=== PATIENT | female | born 1935 | race Caucasian/White ===

== ENCOUNTER 2016-09-16 12:18 | Emergency (ER) | payer MEDICARE, BC ==
[2016-09-16 12:37] VITALS: BP 132/80; PULSE 98; RESP 16; TEMP 98.2
--- NOTE | 2016-09-16 12:57 | XR ---
EXAMINATION TYPE: XR hand complete RT DATE OF EXAM: 09/16/2016 12:53 PM CLINICAL HISTORY: pain TECHNIQUE: Frontal, lateral and oblique images of the right hand are obtained. COMPARISON: None. FINDINGS: Mildly displaced fracture at the base of the fifth proximal phalanx with displacement of mm . Mild angulation is seen. No additional fractures noted. The joint spaces appear within normal limit s. The overlying soft tissue appears unremarkable. IMPRESSION: Mildly displaced fracture at the base of the fifth proximal phalanx ICD 10 closed FRACTURE, INITIAL EVALUATION
--- NOTE | 2016-09-16 13:29 | ED ---
Upper Extremity HPI - General Chief Complaint: Extremity Injury, Upper Stated Complaint: Fall-finger swollen Time Seen by Provider: 09/16/16 13:09 Source: patient, RN notes reviewed Mode of arrival: ambulatory Limitations: no limitations - History of Present Illness Initial Comments: Patient is an 81-year-old female presents to the emergency room for evaluation of right pinky finger pain. Patient states yesterday she fell backwards and caught herself with her hand. Patient states her right pinky finger was "bending the wrong way". Patient states she had her straighten her finger back in place. Patient states when she woke up this morning her finger appeared to be bending the wrong way again. Patient states earlier today she tried to tape her fifth and fourth fingers together with bandaids. Patient states her finger is more swollen and painful than this morning. Patient states she is unable to flex or extend her finger because of pain. Patient denies any other injuries during incident. Patient denies any numbness or tingling in her finger. - Related Data Allergies Allergy/AdvReac Type Severity Reaction Status Date / Time No Known Allergies Allergy Verified 09/16/16 12:34 Review of Systems ROS Statement: Those systems with pertinent positive or pertinent negative responses have been documented in the HPI. ROS Other: All systems not noted in ROS Statement are negative. Past Medical History Past Medical History: Diabetes Mellitus, Thyroid Disorder History of Any Multi-Drug Resistant Organisms: None Reported Past Surgical History: No Surgical Hx Reported Past Psychological History: No Psychological Hx Reported Smoking Status: Never smoker Past Alcohol Use History: None Reported Past Drug Use History: None Reported General Exam - General Exam Comments Initial Comments: Sitting in exam room, no acute distress. Limitations: no limitations General appearance: alert, in no apparent distress Head exam: Present: atraumatic, normocephalic, normal inspection ENT exam: Present: normal exam Neck exam: Present: normal inspection Respiratory exam: Absent: respiratory distress Right Hand Wrist exam: Present: tenderness (Pain on palpating over the fifth digit), swelling (Swelling of the fifth digit.), deformity (Slight angulation of the proximal phalanx of the fifth digit. Pain on palpating over the proximal phalanx.) Neuro motor exam: Present: wrist extension intact Vascular: Present: normal capillary refill (Capillary refill less than 2 seconds.), radial pulse (2+), ulnar pulse (2+) Back exam: Present: normal inspection Neurological exam: Present: alert, oriented X3, CN II-XII intact, normal gait Psychiatric exam: Present: normal affect, normal mood Skin exam: Present: warm, dry, intact, normal color. Absent: rash Course Vital Signs 09/16/16 12:34 Temperature 98.2 F Pulse Rate 98 Respiratory 16 Rate Blood Pressure 132/80 O2 Sat by Pulse 96 Oximetry Procedures - Nerve Block Consent Obtained: verbal consent Local Anesthetic Used: Lidocaine 1% Amount of anesthesia used: 6 Nerve Blocks: digital (right fifth finger) Procedure Successful: Yes Complications: none Patient Tolerated Procedure: well, no complications Medical Decision Making - Medical Decision Making Patient is a 81-year-old female presents to the emergency room for evaluation of right fifth finger pain and swelling. Patient noted to have a mildly displaced fracture of the proximal phalanx to the fifth digit. Fracture was reduced and placed in a splint and starr taped to fourth digit. Patient advised to follow-up with hand specialist for further evaluation. Patient states she understands everything that was discussed with her. Return parameters discussed. Case discussed with Dr. La. - Radiology Data Radiology results: report reviewed, image reviewed Disposition Clinical Impression: Finger fracture, right Disposition: HOME SELF-CARE Condition: Good Instructions: Finger Fracture (ED) Additional Instructions: Elevate and ice on and off for 10-15 minutes for the next 24-48 hours. Take Tylenol or Motrin as needed for pain. Please follow-up with ear specialist in 24-48 hours for reevaluation. If new symptoms develop or symptoms worsen, please return to the ER. Referrals: Yohana Wallace MD [Primary Care Provider] - 1-2 days Nikita Bridges DO [Doctor of Osteopathic Medicine] - 1-2 days Time of Disposition: 13:45
== END 2016-09-16 14:15 | disposition home or self-care (01) ==
LOC: EC 12:18
DX: S62.616A Displaced fracture of proximal phalanx of right little finger, initial encounter for closed fracture (principal); W18.09XA Striking against other object with subsequent fall, initial encounter
CPT/HCPCS: 26725; 99283

== ENCOUNTER → 2017-04-05 | Outpatient (CLI) | payer MEDICARE, BC ==
--- NOTE | 2017-04-13 10:59 | P.ARTDOP ---
Arterial Doppler LOWER EXTREMITY ARTERIAL DOPPLER: DATE OF SERVICE: 04/05/2017 Reason for study: Suspected PVD. Doppler waveforms: Multiphasic bilaterally throughout. Pulse volume recording: Normal configuration. Pressure gradients: None. Ankle-brachial indices: Greater than 1 bilaterally. Toe pressures: 66 on the right, 75 on the left Impression: Essentially normal study. Low toe pressures related to vasospastic phenomenon or less likely very distal disease with proximal flow all being normal. Clinical correlation recommended..
== END | disposition home or self-care (01) ==
LOC: RADUSWWP 13:53
PROVIDERS: ATTEND Internal Medicine
DX: I73.9 Peripheral vascular disease, unspecified (principal)
CPT/HCPCS: 93923

== ENCOUNTER 2017-12-25 13:37 | Inpatient (IN) | payer MEDICARE, BC ==
[2017-12-25] MEDS ORDERED: SODIUM CHLORIDE 0.9% 500 ML IV STA (13:51)
--- NOTE | 2017-12-25 13:57 | ED ---
General Adult HPI - General Chief complaint: Neuro Symptoms/Deficit Stated complaint: stroke symptoms Time Seen by Provider: 12/25/17 13:40 Source: patient, family, RN notes reviewed Mode of arrival: wheelchair Limitations: no limitations - History of Present Illness Initial comments: This is an 82-year-old female presents emergency Department complaining of slurred speech and a little left-sided facial droop. Patient states she went to take it at about 9:00 this morning previous to which she was feeling normal. Patient states when she woke from a nap she had slurred speech and left-sided facial droop that she didn't really appreciate at the time. Family noticed slurred speech as well and brought her to the emergency department. Patient denies any numbness or weakness patient denies any visual disturbance patient denies headache patient states she has had similar symptoms in the past but shows that her sugar was just low and they always resolved. Patient denies any chest pain palpitations difficulty breathing or shortness of breath per patient denies any abdominal pain patient denies nausea vomiting diarrhea. Patient denies any recent injury or fall. - Related Data Allergies Allergy/AdvReac Type Severity Reaction Status Date / Time No Known Allergies Allergy Verified 12/25/17 13:43 Review of Systems ROS Statement: Those systems with pertinent positive or pertinent negative responses have been documented in the HPI. ROS Other: All systems not noted in ROS Statement are negative. Past Medical History Past Medical History: Diabetes Mellitus, Thyroid Disorder History of Any Multi-Drug Resistant Organisms: None Reported Past Surgical History: No Surgical Hx Reported Past Psychological History: No Psychological Hx Reported Smoking Status: Never smoker Past Alcohol Use History: None Reported Past Drug Use History: None Reported General Exam - General Exam Comments Initial Comments: GENERAL: Patient is well-developed and well-nourished. Patient is nontoxic and well- hydrated and is in mild distress. ENT: Neck is soft and supple. No significant lymphadenopathy is noted. Oropharynx is clear. Moist mucous membranes. Neck has full range of motion without eliciting any pain. EYES: The sclera were anicteric and conjunctiva were pink and moist. Extraocular movements were intact and pupils were equal round and reactive to light. Eyelids were unremarkable. PULMONARY: Unlabored respirations. Good breath sounds bilaterally. No audible rales rhonchi or wheezing was noted. CARDIOVASCULAR: There is a regular rate and rhythm without any murmurs gallops or rubs. ABDOMEN: Soft and nontender with normal bowel sounds. No palpable organomegaly was noted. There is no palpable pulsatile mass. SKIN: Skin is clear with no lesions or rashes and otherwise unremarkable. NEUROLOGIC: Patient is alert and oriented x3. Patient has slight facial droop on the left. Motor and sensory are also intact. Patient's slurred speech. Symmetrical smile. Cerebellar exam grossly intact. MUSCULOSKELETAL: Normal extremities with adequate strength and full range of motion. No lower extremity swelling or edema. No calf tenderness. LYMPHATICS: No significant lymphadenopathy is noted PSYCHIATRIC: Normal psychiatric evaluation. Normal interpersonal interactions appears functionally intact in deals appropriately with others. No signs of depression. No signs of anxiety. Limitations: no limitations Course Vital Signs 12/25/17 13:39 Temperature 98.2 F Pulse Rate 77 Respiratory 16 Rate Blood Pressure 165/79 O2 Sat by Pulse 97 Oximetry Medical Decision Making - Medical Decision Making EKG shows sinus rhythm at 100 bpm [place] interval 212 QRS is 86 QT interval 358 QTC is 461. Patient's EKG shows no ST segment elevation or T wave abnormalities. Patient's computed tomography scan showed a right frontal parietal wedge-shaped infarct. Patient's symptoms continued. I spoke with Dr. Kang he agreed to admit the patient admitted the patient I consult the neurology. - Lab Data Result diagrams: 12/25/17 13:58 12/25/17 13:58 Lab Results 12/25/17 12/25/17 12/25/17 Range/Units 13:56 13:58 13:58 WBC 9.3 (3.8-10.6) k/uL RBC 5.06 (3.80-5.40) m/uL Hgb 15.0 (11.4-16.0) gm/dL Hct 44.0 (34.0-46.0) % MCV 86.9 (80.0-100.0) fL MCH 29.5 (25.0-35.0) pg MCHC 34.0 (31.0-37.0) g/dL RDW 12.9 (11.5-15.5) % Plt Count 235 (150-450) k/uL Neutrophils % 78 % Lymphocytes % 10 % Monocytes % 5 % Eosinophils % 4 % Basophils % 1 % Neutrophils # 7.2 (1.3-7.7) k/uL Lymphocytes # 1.0 (1.0-4.8) k/uL Monocytes # 0.5 (0-1.0) k/uL Eosinophils # 0.4 (0-0.7) k/uL Basophils # 0.1 (0-0.2) k/uL PT (9.0-12.0) sec INR (<1.2) APTT (22.0-30.0) sec Sodium (137-145) mmol/L Potassium (3.5-5.1) mmol/L Chloride (98-107) mmol/L Carbon Dioxide (22-30) mmol/L Anion Gap mmol/L BUN (7-17) mg/dL Creatinine (0.52-1.04) mg/dL Est GFR (CKD-EPI)AfAm (>60 ml/min/1.73 sqM) Est GFR (CKD-EPI)NonAf (>60 ml/min/1.73 sqM) Glucose (74-99) mg/dL POC Glucose (mg/dL) 183 H (75-99) mg/dL POC Glu Slater Apprentice [place] Geraldo Robel Calcium (8.4-10.2) mg/dL Total Bilirubin (0.2-1.3) mg/dL AST (14-36) U/L ALT (9-52) U/L Alkaline Phosphatase (38-126) U/L Total Creatine Kinase 71 (30-135) U/L CK-MB (CK-2) 1.2 (0.0-2.4) ng/mL CK-MB (CK-2) Rel Index 1.7 Troponin I <0.012 (0.000-0.034) ng/mL Total Protein (6.3-8.2) g/dL Albumin (3.5-5.0) g/dL 12/25/17 12/25/17 Range/Units 13:58 13:58 WBC (3.8-10.6) k/uL RBC (3.80-5.40) m/uL Hgb (11.4-16.0) gm/dL Hct (34.0-46.0) % MCV (80.0-100.0) fL MCH (25.0-35.0) pg MCHC (31.0-37.0) g/dL RDW (11.5-15.5) % Plt Count (150-450) k/uL Neutrophils % % Lymphocytes % % Monocytes % % Eosinophils % % Basophils % % Neutrophils # (1.3-7.7) k/uL Lymphocytes # (1.0-4.8) k/uL Monocytes # (0-1.0) k/uL Eosinophils # (0-0.7) k/uL Basophils # (0-0.2) k/uL PT 10.1 (9.0-12.0) sec INR 1.0 (<1.2) APTT 20.8 L (22.0-30.0) sec Sodium 139 (137-145) mmol/L Potassium 3.9 (3.5-5.1) mmol/L Chloride 100 (98-107) mmol/L Carbon Dioxide 29 (22-30) mmol/L Anion Gap 10 mmol/L BUN 28 H (7-17) mg/dL Creatinine 0.80 (0.52-1.04) mg/dL Est GFR (CKD-EPI)AfAm 80 (>60 ml/min/1.73 sqM) Est GFR (CKD-EPI)NonAf 70 (>60 ml/min/1.73 sqM) Glucose 189 H (74-99) mg/dL POC Glucose (mg/dL) (75-99) mg/dL POC Glu Slater Apprentice ID Calcium 10.0 (8.4-10.2) mg/dL Total Bilirubin 0.8 (0.2-1.3) mg/dL AST 25 (14-36) U/L ALT 30 (9-52) U/L Alkaline Phosphatase 79 (38-126) U/L Total Creatine Kinase (30-135) U/L CK-MB (CK-2) (0.0-2.4) ng/mL CK-MB (CK-2) Rel Index Troponin I (0.000-0.034) ng/mL Total Protein 7.4 (6.3-8.2) g/dL Albumin 4.1 (3.5-5.0) g/dL Disposition Clinical Impression: Cerebrovascular accident Disposition: ADMITTED IP TO THIS [facility] Referrals: Yohana Wallace MD [Primary Care Provider] - 1-2 days Time of Disposition: 14:53
[2017-12-25 13:59] LABS: Glucose,Whole Blood 183 mg/dL (75-99)
[2017-12-25 14:08] LABS: Basophils # (A) 0.1 k/uL (0-0.2); Basophils % (A) 1 %; Eosinophils # (A) 0.4 k/uL (0-0.7); Eosinophils % (A) 4 %; Lymphocytes % (A) 10 %; MCH 29.5 pg (25.0-35.0); MCV 86.9 fL (80.0-100.0); Mean Platelet Volume 7.1; Monocytes # (A) 0.5 k/uL (0-1.0); Monocytes % (A) 5 %; Neutrophils # (A) 7.2 k/uL (1.3-7.7); Neutrophils % (A) 78 %; Platelet Count 235 k/uL (150-450); RBC 5.06 m/uL (3.80-5.40); RDW 12.9 % (11.5-15.5); WBC 9.3 k/uL (3.8-10.6)
[2017-12-25 14:24] LABS: Albumin 4.1 g/dL (3.5-5.0); Potassium 3.9 mmol/L (3.5-5.1); Total Bilirubin 0.8 mg/dL (0.2-1.3); Total Protein 7.4 g/dL (6.3-8.2)
[2017-12-25 14:26] LABS: Prothrombin Time 10.1 sec (9.0-12.0)
[2017-12-25 14:28] LABS: Creatine Kinase 71 U/L (30-135)
--- NOTE | 2017-12-25 14:28 | XR ---
EXAMINATION TYPE: XR chest 2V DATE OF EXAM: 12/25/2017 COMPARISON: 12/25/2017 HISTORY: Altered mental status TECHNIQUE: Frontal and lateral views of the chest are obtained. FINDINGS: There is no focal air space opacity, pleural effusion, or pneumothorax seen. Pulmonary hy perinflation and biapical lucency represent underlying COPD. The cardiac silhouette size is within no rmal limits. Mild generalized osseous demineralization. The osseous structures are intact. There is an intrathoracic stomach in the retrocardiac airspace. IMPRESSION: No acute cardiopulmonary process.
[2017-12-25 14:39] LABS: Partial Thromboplastin Time 20.8 sec (22.0-30.0)
[2017-12-25 14:40] LABS: Creatine Kinase MB 1.2 ng/mL (0.0-2.4); Troponin I <0.012 ng/mL (0.000-0.034)
--- NOTE | 2017-12-25 14:45 | CT ---
EXAMINATION TYPE: CT angio head neck, CT brain wo con for TPA DATE OF EXAM: 12/25/2017 HISTORY: slurred speech (accession [id number]), Slurred speech (accession [id number]) COMPARISON: NONE CT DLP: 252.8 (accession [id number]), 945.5 (accession [id number]) mGycm. Automated Exposure Control for Dose Reduction was Utilized. TECHNIQUE: Unenhanced CT brain was performed. CTA scan of the neck is performed with IV Contrast, pa tient injected with 65 mL of Isovue 370, axial images are obtained, coronal and sagittal reformatted images are reviewed. Three-D reconstructed images are created on an independent workstation and revie wed. FINDINGS: Brain: There is wedge-shaped defect within the distribution of the right middle cerebral artery invol ving the right frontal and parietal lobes, however areas of this defect display very decreased attenu ation approaching CSF and may be subacute. Remainder of the baird-white junction is preserved. There i s ventricular and sulcal prominence compatible with age-related volume loss. No evidence of acute int racranial hemorrhage, midline shift or mass effect is seen. Ocular lenses are surgically absent. Ther e is atherosclerosis of the intracranial vasculature. Calvarium is intact. Paranasal sinuses and mast oid air cells are well aerated. Carotid/Vascular Structures: There is a normal variant direct origin of the left vertebral artery fro m the aortic arch. There is approximately 50% short segment stenosis of the left carotid bulb and non hemodynamically significant calcific atheromatous plaquing of the proximal left internal carotid gurmeet ry. Remaining visualized portions of the left internal carotid artery are patent. Common carotid gurmeet russell bilaterally are patent without hemodynamically significant stenosis. Within the right carotid bulb there is a focal area of 5 mm in length involving the carotid bulb and external carotid artery with a narrowing of approximately 70%. Distal to this there is no significant stenosis within the cervical portion of the right internal carotid artery. Within both cavernous and supraclinoid portions of the internal carotid arteries there is atherosclerosis. The right vertebral artery displays minimal calcific atheromatous changes. Vertebral arteries are pat ent. Left vertebral artery is dominant. The [place] appears intact. Major intracranial flow voids are maintained without focal clini fredo significant stenosis or occlusion. Other: There is mild centrilobular emphysematous changes within the lung apices. A noncalcified right upper lobe pulmonary nodule seen on series 11 image 21 measuring 4 mm. Mild multilevel degenerative changes the cervical spine are noted. IMPRESSION: 1. Wedge-shaped defect within the right frontoparietal region indicative of infarct in the distributi on of the right middle cerebral artery, however some regions are of marked decreased attenuation sugg esting possible subacute component. Timing could be further estimated with MRI and onset of clinical symptoms. 2. Right upper lobe 4 mm pulmonary nodule. Nonemergent full evaluation of the chest for other pulmona ry nodules is recommended in this patient with mild emphysema. 3. No evidence of vascular occlusion, aneurysm, or dissection. Multifocal stenosis is most pronounced within the right carotid bulb with an area of stenosis of 70% measuring 5 mm in length.
[2017-12-25] MEDS ORDERED: ASPIRIN 325 MG TAB PO STA (14:54)
[2017-12-25 15:44] LABS: Glucose,Whole Blood 157 mg/dL (75-99)
[2017-12-25 17:26] VITALS: BMI 24.0
[2017-12-25] MEDS: POTASSIUM CHLORIDE ER 20 MEQ TAB.ER PO SCH (20:28)
[2017-12-25 20:32] LABS: Glucose,Whole Blood 99 mg/dL (75-99)
[2017-12-25] MEDS: INSULIN ASPART 100 UNIT/ML 1 ML 10 ML VIAL SQ SCH (20:33)
--- NOTE | 2017-12-25 23:51 | P.CNNES ---
History of Present Illness Consult date: 12/25/17 Reason for Consult: Patient admitted with acute right hemispheric stroke. History of Present Illness: This patient is a 82-year-old right-handed white female who was in her usual state of health until early this morning at about 9 AM. She had gone to [facility] as warning and when she had returned home she noticed that she was having difficulty with her speech. She mentioned this to her who noted that she was having some slurring of her words. The symptoms seem to become more noticeable as the day went on. The patient felt that her symptoms may be related to a low blood sugar as she has a known history of diabetes mellitus. She apparently did not check her blood sugar at home however to document this. Apparently soon after the speech impairment she also noted right arm weakness and numbness. This was also a new finding for her and she was concerned for possibility of stroke. Her decided to bring her to the emergency room at [facility] for further evaluation. She was seen in the ER by Dr. Boykin. She continued to show some evidence of slurred speech. She was sent immediately for a computed tomography scan of the brain and CTA angiogram of the head and neck for further evaluation. CAT scan of the brain revealed evidence of an acute right frontoparietal infarct. There was no evidence of hemorrhage. There was also mention of a 4 mm pulmonary nodule noted in the right upper lobe. CTA angiogram results indicated no evidence of vascular occlusion or aneurysm or dissection. Carotid artery stenosis was estimated to be 70%. The patient returned to the emergency room with no improvement in her speech. She was admitted to hospital for further stroke evaluation. She was not a candidate for any neuro interventional treatment with TPA as CAT scan was positive for stroke. Patient denies any previous history of TIA or stroke in the past. Her stroke risk factors include hypertension and hyperlipidemia. She does take Zocor on a regular basis. She also has been using one baby aspirin on a regular basis at home. The patient denies any left-sided weakness or numbness. She feels her speech is still somewhat impaired and slurred at this time. On neurological examination the patient does have left-sided facial droop as well as a left pronator drift. This would be consistent with an acute right hemispheric stroke. Patient is now admitted and neurology has been consulted for further evaluation and recommendations. Review of Systems Constitutional: Denies chills, Denies fever Eyes: denies blurred vision, denies pain Ears, nose, mouth and throat: Denies headache, Denies sore throat Cardiovascular: Reports high blood pressure, Denies chest pain, Denies shortness of breath Respiratory: Denies cough Gastrointestinal: Denies abdominal pain, Denies diarrhea, Denies nausea, Denies vomiting Genitourinary: Denies dysuria, Denies hematuria Musculoskeletal: Denies myalgias Integumentary: Denies pruritus, Denies rash Neurological: Reports aphasia, Reports change in mentation, Reports change in speech, Reports paresthesias, Denies numbness, Denies weakness Psychiatric: Denies anxiety, Denies depression Endocrine: Denies fatigue, Denies weight change Past Medical History Past Medical History: Diabetes Mellitus, Thyroid Disorder History of Any Multi-Drug Resistant Organisms: None Reported Past Surgical History: No Surgical Hx Reported Past Anesthesia/Blood Transfusion Reactions: No Reported Reaction Past Psychological History: No Psychological Hx Reported Smoking Status: Never smoker Past Alcohol Use History: None Reported Past Drug Use History: None Reported - Past Family History Mother Family Medical History: Congestive Heart Failure (CHF), CVA/TIA Father Family Medical History: Myocardial Infarction ([place]) Medications and Allergies Home Medications Medication Instructions Recorded Confirmed Type Aspirin EC [Ecotrin Low Dose] 81 mg PO HS 12/25/17 12/25/17 History Atenolol/Chlorthalidone 1 tab PO DAILY 12/25/17 12/25/17 History [Atenolol-Chlorthalidone 50-25] Glimepiride [Amaryl] 2 mg PO AC-BRKFST 12/25/17 12/25/17 History Levothyroxine Sodium [Synthroid] 75 mcg PO DAILY 12/25/17 12/25/17 History Lisinopril [Zestril] 2.5 mg PO DAILY 12/25/17 12/25/17 History Potassium Chloride ER [K-Dur 20] 20 meq PO BID 12/25/17 12/25/17 History Simvastatin [Zocor] 40 mg PO AC-SUPPER 12/25/17 12/25/17 History metFORMIN HCL [Glucophage] 500 mg PO AC-SUPPER 12/25/17 12/25/17 History Allergies Allergy/AdvReac Type Severity Reaction Status Date / Time No Known Allergies Allergy Verified 12/25/17 15:50 Physical Examination - Vital Signs Vital Signs: Vital Signs Temp Pulse Pulse Pulse Resp BP BP 12/25/17 20:00 98.1 F 73 16 140/73 12/25/17 19:54 76 14 12/25/17 17:54 82 24 145/72 12/25/17 17:00 68 17 144/71 12/25/17 16:54 68 15 144/71 12/25/17 16:00 72 22 153/73 12/25/17 15:43 97.7 F 70 22 187/75 12/25/17 15:00 98.0 F 78 20 12/25/17 13:39 98.2 F 77 16 165/79 BP Pulse Ox 12/25/17 20:00 94 L 12/25/17 19:54 97 12/25/17 17:54 12/25/17 17:00 96 12/25/17 16:54 96 12/25/17 16:00 97 12/25/17 15:43 97 12/25/17 15:00 143/71 97 12/25/17 13:39 97 Intake and Output 12/25/17 12/25/17 12/25/17 06:59 14:59 22:59 Intake Total 40 Balance 40 Intake: IV 40 .9 40 Other: Voiding Method Toilet # Voids 1 Weight 57.606 kg 59.5 kg - Constitutional General appearance: average body habitus, cooperative - EENT EENT: PERRL, mucous membranes moist - Respiratory Respiratory: lungs clear, normal breath sounds - Cardiovascular Cardiovascular: regular rate, normal S1, normal S2 Extremities: no peripheral edema bilaterally - Gastrointestinal Gastrointestinal: normoactive bowel sounds - Integumentary Integumentary: normal - Neurologic Cranial nerve examination: PERRL, EOMI, VFF, V1/V2/V3 grossly intact, tongue midline, intact gag reflex, intact corneal reflex, facial droop (Patient has a left upper motor neuron facial weakness.), normal palatal elevation Speech examination: intact Sensorimotor examination: intact Motor examination - right side: 4/5: biceps, triceps, wrist flexion, wrist extension, business services assistant, hip flexors, knee extensors, dorsiflexion, toe extension (EHL) , plantarflexion Motor examination - left side: 3/5: biceps, triceps, wrist flexion, 4/5: wrist extension, business services assistant, hip flexors, knee extensors, dorsiflexion, toe extension (EHL) , plantarflexion Detailed sensory examination: intact Reflex and gait examination: intact Reflexes: 1+: ankle, bicep, knee, tricep - Musculoskeletal Musculoskeletal: no pain - Psychiatric Psychiatric: mood/affect appropriate, cooperative Results - Laboratory Findings CBC and BMP: 12/25/17 13:58 12/25/17 13:58 Abnormal Lab Findings: Abnormal Labs 12/25/17 12/25/17 12/25/17 13:56 13:58 13:58 APTT 20.8 L BUN 28 H Glucose 189 H POC Glucose (mg/dL) 183 H 12/25/17 15:41 APTT BUN Glucose POC Glucose (mg/dL) 157 H Assessment and Plan (1) Acute right arterial ischemic stroke, MCA (middle cerebral artery) Current Visit: Yes Status: Acute Code(s): I63.511 - CEREB INFRC D/T UNSP OCCLS OR STENOS OF RIGHT MID CEREB ART SNOMED Code(s): 637687206 (2) Hypertension Current Visit: Yes Status: Acute Code(s): I10 - ESSENTIAL (PRIMARY) HYPERTENSION SNOMED Code(s): 89326101 (3) Diabetes mellitus Current Visit: Yes Status: Acute Code(s): E11.9 - TYPE 2 DIABETES MELLITUS WITHOUT COMPLICATIONS SNOMED Code(s): 80075753 (4) Lesion of right lung Current Visit: Yes Status: Acute Code(s): R91.1 - SOLITARY PULMONARY NODULE SNOMED Code(s): 239174592 Plan: This patient is a 82-year-old right-handed white female who was in her usual state of health early this morning. She had attended [facility] and when she had returned home she began expensive and difficulty with slurred speech. also noted that change. Her symptoms worsened in that she was complaining of right arm weakness. She was brought into the emergency room at [facility] for further evaluation. She was seen in the ER by Dr. Boykin. She underwent a computed tomography scan of the brain as well as a CTA angiogram of the head and neck. Results are as noted above. CAT scan of the brain reveals evidence of an acute right hemispheric stroke. She was admitted to hospital for further evaluation. Patient's neurological exam at this time reveals evidence of left upper motor neuron facial weakness as well as a left pronator drift. These findings are consistent with acute right hemispheric stroke. We have recommended a complete stroke evaluation to the patient. Would recommend MRI of the brain for further assessment. Patient is to be continued on aspirin daily for secondary stroke prevention. We will continue close neurological follow-up of this patient in the intensive care unit and we will give further recommendations pending her test results. Her overall prognosis at this time remains very guarded. Time with Patient: Greater than 30
[2017-12-26 05:41] LABS: Basophils % (A) 1 %; Eosinophils # (A) 0.4 k/uL (0-0.7); Eosinophils % (A) 6 %; HCT 41.3 % (34.0-46.0); HGB 13.8 gm/dL (11.4-16.0); Lymphocytes # (A) 0.9 k/uL (1.0-4.8); Lymphocytes % (A) 16 %; MCH 29.1 pg (25.0-35.0); MCHC 33.3 g/dL (31.0-37.0); MCV 87.3 fL (80.0-100.0); Monocytes # (A) 0.5 k/uL (0-1.0); Monocytes % (A) 8 %; Neutrophils % (A) 68 %; Platelet Count 208 k/uL (150-450); RBC 4.73 m/uL (3.80-5.40); RDW 13.1 % (11.5-15.5); WBC 5.9 k/uL (3.8-10.6)
[2017-12-26 05:54] LABS: ALT 29 U/L (9-52); AST 24 U/L (14-36); Albumin 3.5 g/dL (3.5-5.0); Alkaline Phosphatase 50 U/L (38-126); Anion Gap 5 mmol/L; Blood Urea Nitrogen 16 mg/dL (7-17); Calcium 9.4 mg/dL (8.4-10.2); Carbon Dioxide 29 mmol/L (22-30); Chloride 105 mmol/L (98-107); Glucose 108 mg/dL (74-99); Potassium 3.4 mmol/L (3.5-5.1); Sodium 139 mmol/L (137-145); Total Bilirubin 1.4 mg/dL (0.2-1.3); Total Protein 6.6 g/dL (6.3-8.2)
[2017-12-26] MEDS ORDERED: LEVOTHYROXINE 75 MCG TAB PO SCH (06:30)
[2017-12-26] MEDS ORDERED: POTASSIUM CHLORIDE ER 20 MEQ TAB.ER PO SCH (07:00)
[2017-12-26 07:10] LABS: Glucose,Whole Blood 119 mg/dL (75-99)
[2017-12-26] MEDS: INSULIN ASPART 100 UNIT/ML 1 ML 10 ML VIAL SQ SCH ×2 (07:10→12:16)
[2017-12-26] MEDS ORDERED: GLIMEPIRIDE 2 MG TAB PO SCH (07:30)
[2017-12-26] MEDS: POTASSIUM CHLORIDE ER 20 MEQ TAB.ER PO SCH (07:59)
[2017-12-26] MEDS ORDERED: POTASSIUM CHLORIDE ER 20 MEQ TAB.ER PO STA (08:51)
[2017-12-26] MEDS ORDERED: ASPIRIN 325 MG TAB PO SCH ×2 (09:00)
[2017-12-26] MEDS ORDERED: LISINOPRIL 2.5 MG TAB PO SCH (09:00)
[2017-12-26] MEDS ORDERED: CHLORTHALIDONE 25 MG TAB PO SCH (09:00)
[2017-12-26] MEDS ORDERED: ASPIRIN 81 MG PO SCH (09:00)
[2017-12-26] MEDS ORDERED: ATENOLOL 50 MG TAB PO SCH (09:00)
[2017-12-26 11:59] LABS: Glucose,Whole Blood 199 mg/dL (75-99)
[2017-12-26 12:03] VITALS: TEMP 98.2
--- NOTE | 2017-12-26 12:50 | ECHOF ---
Referral Reason:cva MEASUREMENTS -------- HEIGHT: 157.5 cm WEIGHT: 59.0 kg BP: 128/74 IVSd: 1.1 cm (0.6 - 1.1) LVIDd: 3.1 cm (3.9 - 5.3) LVPWd: 1.3 cm (0.6 - 1.1) IVSs: 1.4 cm LVIDs: 2.0 cm LVPWs: 1.6 cm Ao Diam: 2.5 cm (2.0 - 3.7) AV Cusp: 1.7 cm (1.5 - 2.6) LA Diam: 3.0 cm (2.7 - 3.8) MV EXCURSION: 11.280 mm (> 18.000) MV EF SLOPE: 32 mm/s (70 - 150) EPSS: 0.5 cm MV E Ted: 0.80 m/s MV DecT: 158 ms MV A Ted: 0.76 m/s MV E/A Ratio: 1.05 RAP: 5.00 mmHg RVSP: 34.03 mmHg FINDINGS -------- Sinus rhythm. This was a technically adequate study. The left ventricular size is normal. There is borderline concentric left ventricular hypertrophy. Overall left ventricular systolic function is low-normal with, an EF between 50 - 55 %. The right ventricle is normal in size and function. The left atrium is normal in size. The right atrium is normal in size. The aortic valve is trileaflet, and appears structurally normal. No aortic stenosis or regurgitation. Mild mitral regurgitation is present. Mild tricuspid regurgitation present. The right ventricular systolic pressure, as measured by Doppl er, is 34.03mmHg. Pulmonic valve appears structurally normal. The aortic root size is normal. Normal inferior vena cava with normal inspiratory collapse consistent with estimated right atrial pre ssure of 5 mmHg. The pericardium is normal. CONCLUSIONS -------- 1. Sinus rhythm. 2. This was a technically adequate study. 3. The left ventricular size is normal. 4. There is borderline concentric left ventricular hypertrophy. 5. Overall left ventricular systolic function is low-normal with, an EF between 50 - 55 %. 6. The right ventricle is normal in size and function. 7. The left atrium is normal in size. 8. The right atrium is normal in size. 9. The aortic valve is trileaflet, and appears structurally normal. No aortic stenosis or regurgitati on. 10. Mild mitral regurgitation is present. 11. Mild tricuspid regurgitation present. 12. The right ventricular systolic pressure, as measured by Doppler, is 34.03mmHg. 13. Pulmonic valve appears structurally normal. 14. The aortic root size is normal. 15. Normal inferior vena cava with normal inspiratory collapse consistent with estimated right atrial pressure of 5 mmHg. 16. The pericardium is normal. STUDIO PRODUCER: Roberta Huizar RDCS
[2017-12-26 13:55] LABS: Hemoglobin A1C 7.4 % (4.0-6.0)
--- NOTE | 2017-12-26 14:31 | P.HPIM ---
History of Present Illness H&P Date: 12/26/17 Chief Complaint: Slurred speech, right arm weakness HISTORY AND PHYSICAL AND DISCHARGE SUMMARY: This is an 82-year-old female patient of Dr. Wallace with a past medical history of diabetes mellitus type 2, hypertension, hyperlipidemia, hypothyroidism.. Patient states that she was fine on Tuesday night and no problems went to bed. When she woke up in the morning she was also fine and her left for [facility] and she decided she wasn't feeling quite right and decided to lay down. She took a nap and woke up at 10:15 and she had slurred speech and right arm weakness as well as bilateral lower extremity weakness. Her came home from [facility] and she told him that she was a right and she ended up coming into [facility] emergency center for evaluation. CTA of the head and neck reveal wedge-shaped defect within the right frontoparietal region indicative of infarct in the distribution of the right middle cerebral artery however some regions are of marked decreased attenuation suggesting possible subacute component. Right upper lobe 4 mm pulmonary nodule. Mild emphysema. No evidence of vascular occlusion, aneurysm or dissection. Multifocal stenosis is most pronounced within the right carotid bulb with an area of stenosis 70% measuring 5 mm in length. Patient was placed in the ICU as an overflow for selective care. She has been seen in consultation by Dr. Isidro. He is scheduled for MRI of the brain and EEG has been completed. Patient has been placed on full strength aspirin versus 81 mg and statin changed to Lipitor 40 mg. ET, OT and speech therapy added. Echocardiogram reveals EF 5055% with borderline concentric left ventricle hypertrophy, mild mitral regurgitation, mild tricuspid regurgitation, right atrial pressure of 5, sinus rhythm. EEG moderately abnormal and diffuse fashion due to slowing of the background. Failed to reveal any focal, lateralizing or epileptiform abnormalities. Patient did not want to wait for MRI scheduled in the evening and was discharged home and scheduled as an outpatient on December 27. PT and OT both recommended home with homecare. Speech therapy recommended home with treatment. Patient is to continue the aspirin at 325 mg daily and simvastatin was changed to atorvastatin 40 mg daily. She is then to follow up with Dr. Isidro and Dr. Wallace. Patient was discharged in stable condition. MRI of the brain scheduled as an outpatient on December 27 revealed area of acute ischemia involving the right basal ganglia and deep white matter of the right parietal lobe. No significant mass effect. Degenerative and remote ischemic change. Discharge Medication List Atenolol/Chlorthalidone [Atenolol-Chlorthalidone 50-25] 1 tab PO DAILY 12/25/17 [History] Glimepiride [Amaryl] 2 mg PO AC-BRKFST 12/25/17 [History] Levothyroxine Sodium [Synthroid] 75 mcg PO DAILY 12/25/17 [History] Lisinopril [Zestril] 2.5 mg PO DAILY 12/25/17 [History] Potassium Chloride ER [K-Dur 20] 20 meq PO BID 12/25/17 [History] metFORMIN HCL [Glucophage] 500 mg PO AC-SUPPER 12/25/17 [History] Aspirin 325 mg PO DAILY tab 12/26/17 [Rx] Atorvastatin [Lipitor] 40 mg PO AC-SUPPER #30 tab 12/26/17 [Rx] Review of Systems All systems: negative Constitutional: Reports weakness, Denies anorexia, Denies chills, Denies fever, Denies poor appetite Eyes: denies blurred vision, denies pain Ears, nose, mouth and throat: Denies headache, Denies sore throat, Denies vertigo Cardiovascular: Denies chest pain, Denies decreased exercise tolerance, Denies dyspnea on exertion, Denies edema, Denies leg edema, Denies lightheadedness, Denies shortness of breath, Denies syncope Respiratory: Denies congestion, Denies cough, Denies cough with sputum, Denies dyspnea, Denies excessive sputum, Denies hemoptysis, Denies home oxygen, Denies wheezing Gastrointestinal: Denies abdominal pain, Denies diarrhea, Denies loss of appetite, Denies nausea, Denies vomiting Genitourinary: Denies dysuria, Denies hematuria, Denies urgency, Denies urinary frequency Musculoskeletal: Denies frequent falls, Denies gait dysfunction, Denies myalgias Integumentary: Denies pruritus, Denies rash, Denies wounds Neurological: Reports change in speech, Reports weakness, Denies confusion, Denies numbness Psychiatric: Denies anxiety, Denies depression Endocrine: Denies fatigue, Denies weight change Past Medical History Past Medical History: Diabetes Mellitus, Hyperlipidemia, Hypertension, Thyroid Disorder History of Any Multi-Drug Resistant Organisms: None Reported Past Surgical History: No Surgical Hx Reported Past Anesthesia/Blood Transfusion Reactions: No Reported Reaction Past Psychological History: No Psychological Hx Reported Smoking Status: Never smoker Past Alcohol Use History: None Reported Additional Past Alcohol Use History / Comment(s): She is a lifelong nonsmoker, no illicit drug use, no alcohol use. Past Drug Use History: None Reported - Past Family History Mother Family Medical History: Congestive Heart Failure (CHF), CVA/TIA Additional Family Medical History / Comment(s): Mother had history of hypertension, diabetes, TIAs. No cancer history. Father Family Medical History: Myocardial Infarction ([place]) Additional Family Medical History / Comment(s): Mother from a myocardial infarction. Brother(s) Additional Family Medical History / Comment(s): Patient had 3 brothers. One from a myocardial infraction with history of obstructive sleep apnea. One from some type of aneurysm and one from alcohol abuse. Sister(s) Additional Family Medical History / Comment(s): She has 2 sisters and one has coronary artery disease status post CABG. Son(s) Additional Family Medical History / Comment(s): Patient has one son with diabetes mellitus type 2. Patient has one daughter with no major medical problems. Medications and Allergies Home Medications Medication Instructions Recorded Confirmed Type Atenolol/Chlorthalidone 1 tab PO DAILY 12/25/17 12/25/17 History [Atenolol-Chlorthalidone 50-25] Glimepiride [Amaryl] 2 mg PO AC-BRKFST 12/25/17 12/25/17 History Levothyroxine Sodium [Synthroid] 75 mcg PO DAILY 12/25/17 12/25/17 History Lisinopril [Zestril] 2.5 mg PO DAILY 12/25/17 12/25/17 History Potassium Chloride ER [K-Dur 20] 20 meq PO BID 12/25/17 12/25/17 History metFORMIN HCL [Glucophage] 500 mg PO AC-SUPPER 12/25/17 12/25/17 History Aspirin 325 mg PO DAILY tab 12/26/17 Rx Atorvastatin [Lipitor] 40 mg PO AC-SUPPER #30 tab 12/26/17 Rx Allergies Allergy/AdvReac Type Severity Reaction Status Date / Time No Known Allergies Allergy Verified 12/25/17 15:50 Physical Exam Vitals: Vital Signs Temp Pulse Pulse Pulse Resp BP BP 12/26/17 07:54 98.0 F 90 15 125/66 12/26/17 07:00 73 14 116/53 12/26/17 05:54 70 16 12/26/17 04:00 97.8 F 65 23 136/56 12/26/17 03:00 62 12 12/26/17 02:00 92 20 124/58 12/26/17 01:00 74 37 H 12/26/17 00:03 72 25 H 136/71 12/26/17 00:00 97.7 F 69 18 136/71 12/25/17 23:54 12/25/17 23:00 87 17 12/25/17 22:00 88 37 H 139/67 12/25/17 21:54 68 16 12/25/17 21:00 74 47 H 140/73 12/25/17 20:00 98.1 F 73 16 140/73 12/25/17 19:54 76 14 12/25/17 17:54 82 24 145/72 12/25/17 17:00 68 17 144/71 12/25/17 16:54 68 15 144/71 12/25/17 16:00 72 22 153/73 12/25/17 15:43 97.7 F 70 22 187/75 12/25/17 15:00 98.0 F 78 20 12/25/17 13:39 98.2 F 77 16 165/79 BP Pulse Ox 12/26/17 07:54 96 12/26/17 07:00 95 12/26/17 05:54 97 12/26/17 04:00 96 12/26/17 03:00 95 12/26/17 02:00 12/26/17 01:00 95 12/26/17 00:03 96 12/26/17 00:00 95 12/25/17 23:54 95 12/25/17 23:00 97 12/25/17 22:00 95 12/25/17 21:54 96 12/25/17 21:00 94 L 12/25/17 20:00 94 L 12/25/17 19:54 97 12/25/17 17:54 12/25/17 17:00 96 12/25/17 16:54 96 12/25/17 16:00 97 12/25/17 15:43 97 12/25/17 15:00 143/71 97 12/25/17 13:39 97 Intake and Output 12/25/17 12/26/17 12/26/17 22:59 06:59 14:59 Intake Total 360 160 380 Balance 360 160 380 Intake: IV 120 160 80 .9 120 160 80 Oral 240 300 Other: Voiding Method Toilet Toilet # Voids 0 1 # Bowel Movements 1 Weight 59.5 kg 59.4 kg Gen: This is an 82-year-old female. She appears to be comfortable and in no acute distress. HEENT: Head is atraumatic, normocephalic. Pupils equal, round. Sclerae is anicteric. Mild left-sided facial droop. NECK: Supple. No JVD. No lymphadenopathy. No thyromegaly. LUNGS: Clear to auscultation. No wheezes or rhonchi. No intercostal retractions. HEART: Regular rate and rhythm. No murmur. ABDOMEN: Soft. Bowel sounds are present. No masses. No tenderness. EXTREMITIES: No pedal edema. No calf tenderness. NEUROLOGICAL: Patient is awake, alert and oriented x3. Cranial nerves 2 through 12 are grossly intact. No weakness in the right arm, legs. Results CBC & Chem 7: 12/26/17 05:11 12/26/17 14:18 Labs: Abnormal Lab Results - Last 24 Hours (Table) 12/25/17 12/25/17 12/25/17 Range/Units 13:56 13:58 13:58 Lymphocytes # (1.0-4.8) k/uL APTT 20.8 L (22.0-30.0) sec Potassium (3.5-5.1) mmol/L BUN 28 H (7-17) mg/dL Glucose 189 H (74-99) mg/dL POC Glucose (mg/dL) 183 H (75-99) mg/dL Total Bilirubin (0.2-1.3) mg/dL 12/25/17 12/26/17 12/26/17 Range/Units 15:41 05:11 05:11 Lymphocytes # 0.9 L (1.0-4.8) k/uL APTT (22.0-30.0) sec Potassium 3.4 L (3.5-5.1) mmol/L BUN (7-17) mg/dL Glucose 108 H (74-99) mg/dL POC Glucose (mg/dL) 157 H (75-99) mg/dL Total Bilirubin 1.4 H (0.2-1.3) mg/dL 12/26/17 Range/Units 07:09 Lymphocytes # (1.0-4.8) k/uL APTT (22.0-30.0) sec Potassium (3.5-5.1) mmol/L BUN (7-17) mg/dL Glucose (74-99) mg/dL POC Glucose (mg/dL) 119 H (75-99) mg/dL Total Bilirubin (0.2-1.3) mg/dL Thrombosis Risk Factor Assmnt - DVT/VTE Prophylaxis DVT/VTE Prophylaxis: Pharmacologic Prophylaxis ordered - Choose All That Apply Any of the Below Risk Factors Present?: No Other Risk Factors: No Other congenital or acquired thrombophilia - If yes, enter type in comment: No Each Risk Factor Represents 5 Points: Stroke (< 1 month) Thrombosis Risk Factor Assessment Total Risk Factor Score: 5 Thrombosis Risk Factor Assessment Level: High Risk Assessment and Plan Plan: 1. Acute right ischemic stroke secondary to right-sided carotid stenosis of 70% . Consult with Dr. Dwaine yanes. Patient placed on a full strength aspirin. MRI of the brain and EEG are pending. Statin changed to Lipitor 40 mg daily. 2. Diabetes mellitus type 2. Continue glimepiride 2 mg daily. Metformin currently on hold due to CAT scan 3. Hypertension. Continue atenolol chlorthalidone 1 daily, lisinopril 2.5 mg daily. 4. Hyperlipidemia. Statin changed to Lipitor 40 mg daily. 5. Hypothyroidism continue levothyroxine 75 g daily. Patient will be admitted to the hospital for a minimum of 2 night stay. Discharge plan: Most likely return home. PT, OT and ST in place. Impression and plan of care have been directed as dictated by the signing physician. Livia Leone nurse practitioner acting as scribe for signing physician.
[2017-12-26] MEDS ORDERED: ATORVASTATIN 20 MG TAB PO SCH (17:30)
[2017-12-26] MEDS ORDERED: ATORVASTATIN 40 MG TAB PO SCH (17:30)
[2017-12-26 17:43] VITALS: BP 118/62; PULSE 71; RESP 22
--- NOTE | 2017-12-26 20:08 | P.PN ---
Subjective Progress Note Date: 12/26/17 Patient seen in the ICU today for recent right parietal stroke. This patient was seen in the intensive care unit yesterday for evaluation of acute right hemispheric stroke. She had wedge-shaped frontoparietal infarct involving the right frontal parietal region of the brain. She was recommended to undergo MRI of the brain which is now been scheduled for her to be done as outpatient tomorrow. She continues to do fairly well but does have some deficits in terms of left-sided weakness and slurred speech. She otherwise seems to be doing fairly well and is functioning slightly better than yesterday. Patient is being scheduled for MRI of the brain tomorrow. She is in the meantime being scheduled for discharge home and should follow-up in the outpatient neurology clinic in 2-3 weeks. We will review the MRI results with her at that time. Patient is to be maintained on aspirin daily for secondary stroke prevention. Overall prognosis at this time remains very guarded. Objective - Vital Signs Vital signs: Vital Signs Temp 98.2 F 12/26/17 11:54 Pulse 85 12/26/17 13:54 Resp 15 12/26/17 13:54 BP 98/49 12/26/17 13:54 Pulse Ox 97 12/26/17 13:54 Intake & Output 12/25/17 12/26/17 12/26/17 18:59 06:59 18:59 Intake Total 40 480 380 Balance 40 480 380 Weight 59.5 kg 59.4 kg Intake: IV 40 240 80 .9 40 240 80 Oral 240 300 Other: Voiding Method Toilet Toilet # Voids 1 1 # Bowel Movements 1 - Exam Physical Examination: PHYSICAL EXAMINATION: Patient is resting comfortably in bed. VITAL SIGNS: Blood pressure is [118/62]. Heart rate is [71]. Respiration is [22] . Temperature is [98.2]. HEENT: Head is atraumatic, neck is supple, there were no carotid bruits. CHEST: Lungs are clear to auscultation and percussion. CARDIAC: S1, S2 normal rate and rhythm. There is no murmur. ABDOMEN: Soft and nontender. Bowel sounds are present. EXTREMITIES: There is no pedal edema. Peripheral pulses are present. Neurological examination: Patient's neurological examination is unchanged from yesterday. - Labs CBC & Chem 7: 08/13/18 05:11 12/26/17 14:18 Labs: Abnormal Lab Results - Last 24 Hours (Table) 12/26/17 12/26/17 12/26/17 Range/Units 05:11 05:11 07:09 Lymphocytes # 0.9 L (1.0-4.8) k/uL Potassium 3.4 L (3.5-5.1) mmol/L Glucose 108 H (74-99) mg/dL POC Glucose (mg/dL) 119 H (75-99) mg/dL Total Bilirubin 1.4 H (0.2-1.3) mg/dL 12/26/17 Range/Units 11:56 Lymphocytes # (1.0-4.8) k/uL Potassium (3.5-5.1) mmol/L Glucose (74-99) mg/dL POC Glucose (mg/dL) 199 H (75-99) mg/dL Total Bilirubin (0.2-1.3) mg/dL Assessment and Plan (1) Acute right arterial ischemic stroke, MCA (middle cerebral artery) Status: Acute Code(s): I63.511 - CEREB INFRC D/T UNSP OCCLS OR STENOS OF RIGHT MID CEREB ART SNOMED Code(s): 430166000 (2) Hypertension Status: Acute Code(s): I10 - ESSENTIAL (PRIMARY) HYPERTENSION SNOMED Code(s) : 17062801 (3) Diabetes mellitus Status: Acute Code(s): E11.9 - TYPE 2 DIABETES MELLITUS WITHOUT COMPLICATIONS SNOMED Code(s): 97022685 (4) Lesion of right lung Status: Acute Code(s): R91.1 - SOLITARY PULMONARY NODULE SNOMED Code(s): 300324681 Plan: This patient is a 82-year-old right-handed white female who was in her usual state of health early this morning. She had attended [employer] and when she had returned home she began expensive and difficulty with slurred speech. also noted that change. Her symptoms worsened in that she was complaining of right arm weakness. She was brought into the emergency room at [facility] for further evaluation. She was seen in the ER by Dr. Boykin. She underwent a computed tomography scan of the brain as well as a CTA angiogram of the head and neck. Results are as noted above. CAT scan of the brain reveals evidence of an acute right hemispheric stroke. She was admitted to hospital for further evaluation. Patient's neurological exam at this time reveals evidence of left upper motor neuron facial weakness as well as a left pronator drift. These findings are consistent with acute right hemispheric stroke. We have recommended a complete stroke evaluation to the patient. Would recommend MRI of the brain for further assessment. Patient is to be continued on aspirin daily for secondary stroke prevention. We will continue close neurological follow-up of this patient in the intensive care unit and we will give further recommendations pending her test results. Patient is being considered for discharge home today and will be scheduling the MRI of the brain as an outpatient tomorrow. She should follow-up in the outpatient neurology clinic in 2-3 weeks to review the results of the MRI. Her neurological examination is unchanged from yesterday. Her overall prognosis at this time remains very guarded.
--- NOTE | 2017-12-26 21:45 | EEG ---
ELECTROENCEPHALOGRAM REPORT DATE OF EE12/26/2017 ELECTROENCEPHALOGRAPHIC EXAMINATION REPORT: INDICATION FOR EXAMINATION: This patient is an 82-year-old female being evaluated for acute right hemispheric stroke. AGE: [age]. EEG FINDINGS: A routine 21-channel awake digital EEG recording was accomplished utilizing the 10-20 international system with bipolar and referential montages. The background activity in the most alert resting state consists of a low to medium amplitude, poorly developed and poorly sustained 6 Hz activity over the posterior head regions. This posterior rhythm attenuates to eye opening. There is a small amount of low amplitude 18-20 Hz beta activity seen maximally over the anterior head regions. Muscle and movement artifact was observed on a few occasions during the tracing. Hyperventilation was not performed. Photic stimulation at flash frequencies of 2-30 Hz produced a minimal occipital driving response. No epileptiform discharges were seen. IMPRESSION: This EEG is moderately abnormal in a diffuse fashion due to slowing of the EEG background. The EEG failed to reveal any focal, lateralized, or epileptiform abnormalities. Clinical correlation is recommended. MMTERRIEL / IJN: [id number] /
== END 2017-12-26 18:24 | disposition home health service (06) | DRG 65 ==
LOC: EC 13:37 → 6ICU 14:54
PROVIDERS: ADMIT Internal Medicine; ATTEND Internal Medicine
DX: I63.231 Cerebral infarction due to unspecified occlusion or stenosis of right carotid arteries (principal); G81.91 Hemiplegia, unspecified affecting right dominant side; R47.81 Slurred speech; R29.810 Facial weakness; G83.14 Monoplegia of lower limb affecting left nondominant side; R40.2362 Coma scale, best motor response, obeys commands, at arrival to emergency department; R40.2142 Coma scale, eyes open, spontaneous, at arrival to emergency department; R40.2252 Coma scale, best verbal response, oriented, at arrival to emergency department; R29.703 NIHSS score 3; E11.9 Type 2 diabetes mellitus without complications; I08.1 Rheumatic disorders of both mitral and tricuspid valves; I10 Essential (primary) hypertension; E03.9 Hypothyroidism, unspecified; E78.5 Hyperlipidemia, unspecified; J43.9 Emphysema, unspecified; R91.1 Solitary pulmonary nodule; Z79.82 Long term (current) use of aspirin; Z79.84 Long term (current) use of oral hypoglycemic drugs; Z79.890 Hormone replacement therapy; Z79.899 Other long term (current) drug therapy; Z83.3 Family history of diabetes mellitus; Z82.49 Family history of ischemic heart disease and other diseases of the circulatory system; Z82.3 Family history of stroke; Z83.6 Family history of other diseases of the respiratory system; Z81.1 Family history of alcohol abuse and dependence
CPT/HCPCS: 36415; 70450; 70496; 70498; 71046; 80053; 80061; 82550; 82553; 83036; 84132; 84443; 84484; 85025; 85610; 85730; 93005; 93306; 95819; 99285

== ENCOUNTER → 2017-12-27 | Outpatient (CLI) | payer BC, MEDICARE ==
--- NOTE | 2017-12-27 11:23 | MR ---
EXAMINATION TYPE: MR brain wo con stat DATE OF EXAM: 12/27/2017 COMPARISON: CT scan 12/25/2017 HISTORY: Cerebral infarction, unspecified T1-weighted sagittal, T2, FLAIR, and diffusion axial, and T2 coronal coronal views of the brain are s ubmitted. There is an area of abnormal signal on diffusion imaging involving the right basal ganglia extending into the deep white matter adjacent to the right lateral ventricle compatible with acute ischemia. There is a area of abnormal signal compatible with encephalomalacia involving the right frontal lobe. There are numerous areas of abnormal signal involving the white matter which are nonspecific but most typical of remote ischemia. There is additional area of encephalomalacia involving the right parieta l lobe compatible with remote ischemia. Changes of chronic sinusitis. Craniocervical junction maintained. Sella turcica has a normal appearance. No cerebellopontine angle mass. IMPRESSION: 1. There is an area of acute ischemia involving the right basal ganglia and deep white matter of the right parietal lobe. Referring physician notified of the findings by telephone. No significant mass e ffect. 2. Degenerative and remote ischemic change.
== END | disposition home or self-care (01) ==
LOC: RADMRIMAIN 10:37
PROVIDERS: ATTEND Psychiatry & Neurology Neurology
DX: I67.82 Cerebral ischemia (principal); G31.9 Degenerative disease of nervous system, unspecified
CPT/HCPCS: 70551

== ENCOUNTER → 2018-02-16 | Outpatient (CLI) | payer MEDICARE, BC | END | disposition home or self-care (01) | LOC: LABWHC1 07:05 | PROVIDERS: ATTEND Internal Medicine | DX: R91.1 Solitary pulmonary nodule (principal) | CPT/HCPCS: 36415; 82565; 84520 ==

== ENCOUNTER → 2018-02-24 | Outpatient (CLI) | payer MEDICARE, BC ==
--- NOTE | 2018-02-24 12:51 | CT ---
EXAMINATION TYPE: CT chest w con DATE OF EXAM: 02/24/2018 COMPARISON: CTA neck December 25, 2017 HISTORY: Solitary pulmonary nodule, recent abnormal CT. CT DLP: 212.8 mGycm. Automated Exposure Control for Dose Reduction was Utilized. TECHNIQUE: CT scan of the thorax is performed following with IV Contrast, patient injected with 80 m L of Isovue 300. FINDINGS: LUNGS: Tiny nodule anterior right upper lung measures 2 mm current study image 16 with adjacent 3 mm regular scarlike opacity lateral to it. There is right basilar medial scarring. No suspicious greater than 5 mm parenchymal nodules or masses is present bilaterally. There is no pleural effusion or pn eumothorax seen bilaterally. The tracheobronchial tree is patent. MEDIASTINUM: There are no greater than 1 cm hilar or mediastinal lymph nodes. No cardiomegaly or pe ricardial effusion is seen. There is large fixed hiatal hernia or intrathoracic stomach that has abn ormal rotation or twisting greater curvature superior to lesser curvature. This is present on chest x -ray December 25, 2017. 4 vessel origin from aortic arch is present which is normal variant. There is c alcified plaque of the aorta extending into branch vessels. Most prominent plaque is moderate to naif re in the visualized abdominal aorta. OTHER: S-shaped scoliosis with multilevel spurring in the spine is present. There is fibroglandular t issue prominence subareolar region of both breasts with slightly more masslike prominent left breast axial image 29 measuring 1.2 x 0.7 cm. Corresponding most recent mammogram from 2013 shows slightly m ore prominent left greater than right subareolar fibroglandular tissue. New mass or lesion at this le vilma needs to be excluded and follow-up is advised. A few simple appearing small cysts are scattered t hroughout the visualized portion of left kidney. IMPRESSION: 1. No suspicious parenchymal nodules or adenopathy. 2. Cannot exclude new left breast subareolar mass or lesion, advise ultrasound and mammogram follow-u p. 3. Large fixed hiatal hernia or intrathoracic stomach with abnormal rotation.
== END ==
LOC: RADCTMAIN 10:42
PROVIDERS: ATTEND Internal Medicine
DX: R91.1 Solitary pulmonary nodule (principal)
CPT/HCPCS: 82565; 84520; 71260; 36415; Q9967

== ENCOUNTER → 2018-02-28 | Outpatient (CLI) | payer MEDICARE, BC ==
--- NOTE | 2018-04-06 09:45 | EM ---
EVENT MONITOR DATE OF SERVICE: February 28, 2018. REFERRING DOCTOR: Dr. Wallace. INDICATION: Palpitations. DESCRIPTION OF PROCEDURE: The patient was monitored for 4 weeks. The baseline rhythm appeared to be a sinus mechanism. During the 4 weeks monitoring, the patient did have multiple episodes of premature ventricular contractions. The patient did have beside that the rhythm is a sinus mechanism. No sinus pause or sinus arrest seen. No tachy or bradyarrhythmia noted as well. No advanced AV block seen as well. CONCLUSION: 1. This is a 4-week event monitor. 2. Sinus rhythm as a baseline rhythm. 3. Multiple episodes of premature ventricular contractions. 4. No evidence of any advanced AV block. 5. No evidence of sinus pause or sinus arrest. 6. No evidence of any tachy or bradyarrhythmia noted. 7. The patient reported no symptoms. MMODL / IJN: [id number] /
== END | disposition home or self-care (01) ==
LOC: RADECHMAIN 11:30
PROVIDERS: ATTEND Internal Medicine
DX: I49.3 Ventricular premature depolarization (principal)
CPT/HCPCS: 93270; 93271

== ENCOUNTER → 2018-03-09 | Outpatient (CLI) | payer MEDICARE, BC ==
--- NOTE | 2018-03-09 11:57 | MM ---
Reason for exam: additional evaluation requested from prior study. Last mammogram was performed 4 years and 9 months ago. History: Patient is postmenopausal. Physical Findings: Nurse Summary: 1cm nodule in the left breast at 12 o'clock (nurse kp). MG 3D Diag Mammo W/Cad PIPO Bilateral CC and MLO view(s) were taken. Prior study comparison: June 11, 2013, bilateral digital screening mammo w/CAD. June 09, 2012, bilateral digital screening mammo w/CAD. The breast tissue is heterogeneously dense. This may lower the sensitivity of mammography. There is a benign appearing round circumscribed stable left upper outer quadrant mass. No suspicious abnormality. No significant new findings when compared with previous films. These results were verbally communicated with the patient and result sheet given to the patient on 03/09/18. ASSESSMENT: Benign, BI-RAD 2 RECOMMENDATION: Routine screening mammogram of both breasts in 1 year.
--- NOTE | 2018-03-09 12:00 | USB ---
Reason for exam: additional evaluation requested from prior study. History: Patient is postmenopausal. US Breast BILAT Technologist: Marlen Jimenez, RT (R)(M) Right complete breast ultrasound includes all four quadrants, the retroareolar region and axilla. Finding demonstrates no cystic or solid lesion seen. Left complete breast ultrasound includes all four quadrants, the retroareolar region and axilla. Finding demonstrates no cystic or solid lesion seen. Dense tissue at BB. Dense tissue sonographically correlates with mammography. These results were verbally communicated with the patient and result sheet given to the patient on 03/09/18. ASSESSMENT: Benign, BI-RAD 2 RECOMMENDATION: Routine screening mammogram of both breasts in 1 year.
== END | disposition home or self-care (01) ==
LOC: RADMAMWWP 09:48
PROVIDERS: ATTEND Internal Medicine
DX: R92.8 Other abnormal and inconclusive findings on diagnostic imaging of breast (principal)
CPT/HCPCS: 77066; 76641; G0279; 77062

== ENCOUNTER 2022-06-02 09:48 | Inpatient (IN) | payer MEDICARE, BC ==
[2022-06-02] MEDS ORDERED: SODIUM CHLORIDE 0.9% 1,000 ML IV STA (09:56)
[2022-06-02 11:03] LABS: ALT 31 U/L (4-34); African American GFR (CKD) >90 (>60 ml/min/1.73 sqM); Albumin 3.8 g/dL (3.5-5.0); Anion Gap 9 mmol/L; Blood Urea Nitrogen 18 mg/dL (7-17); Calcium 9.4 mg/dL (8.4-10.2); Carbon Dioxide 26 mmol/L (22-30); Chloride 91 mmol/L (98-107); Glucose 259 mg/dL (74-99); Non-African American GFR(CKD) 81 (>60 ml/min/1.73 sqM); Sodium 126 mmol/L (137-145); Total Bilirubin 2.1 mg/dL (0.2-1.3); Total Protein 7.3 g/dL (6.3-8.2)
[2022-06-02 11:05] LABS: Potassium 4.2 mmol/L (3.5-5.1)
[2022-06-02 11:06] LABS: AST 44 U/L (14-36); Alkaline Phosphatase 51 U/L (38-126); Basophils % (A) 0 %; Eosinophils # (A) 0.1 k/uL (0-0.7); Eosinophils % (A) 1 %; HCT 41.4 % (34.0-46.0); HGB 14.1 gm/dL (11.4-16.0); Lymphocytes # (A) 0.6 k/uL (1.0-4.8); Lymphocytes % (A) 6 %; MCH 29.4 pg (25.0-35.0); MCHC 34.1 g/dL (31.0-37.0); MCV 86.1 fL (80.0-100.0); Magnesium 1.7 mg/dL (1.6-2.3); Mean Platelet Volume 8.5; Monocytes # (A) 0.7 k/uL (0-1.0); Monocytes % (A) 7 %; Neutrophils # (A) 8.5 k/uL (1.3-7.7); Neutrophils % (A) 85 %; Platelet Count 251 k/uL (150-450); RBC 4.81 m/uL (3.80-5.40); RDW 12.5 % (11.5-15.5); WBC 10.1 k/uL (3.8-10.6)
--- NOTE | 2022-06-02 11:32 | XR ---
EXAMINATION TYPE: XR chest 2V DATE OF EXAM: 06/02/2022 11:00 AM COMPARISON: Chest radiographs from 12/25/2017, CT chest 02/24/2018 TECHNIQUE: XR chest 2V Frontal and lateral views of the chest. CLINICAL INDICATION:Female, 87 years old with history of Weakness; FINDINGS: Lungs/Pleura: There is flattening of the diaphragm with increased lucency of the lungs. No evidence o f pneumothorax, pleural effusion or focal consolidation. Pulmonary vascularity: Unremarkable. Heart/mediastinum: Cardiomediastinal silhouette is unremarkable. Large hiatal hernia again seen. Musculoskeletal: No acute osseous pathology. IMPRESSION: 1. No acute cardiopulmonary disease process. 2. COPD changes. 3. Hiatal hernia
[2022-06-02 11:40] LABS: INR 1.1 (<1.2)
[2022-06-02 11:49] LABS: Partial Thromboplastin Time 22.1 sec (22.0-30.0)
--- NOTE | 2022-06-02 12:09 | CT ---
EXAMINATION TYPE: CT brain wo con DATE OF EXAM: 06/02/2022 COMPARISON: 12/25/2017 HISTORY: 87-year-old female weakness TECHNIQUE: Examination was done in axial plane without intravenous contrast. Coronal and sagittal r econstructions performed. CT DLP: 1055.4 mGycm Automated exposure control for dose reduction was used. FINDINGS: There is no evidence of acute intracranial hemorrhage, acute ischemic changes, mass, mass-effect, or extra-axial fluid collection. There is no effacement of cerebral sulci or basal subarachnoid cister ns. There is no midline shift. Schafer-white matter distinction is preserved. Prominent vascular calcifications in the bilateral carotid siphons. Encephalomalacia lateral right fr ontal lobe and anterior right frontal lobe was present in 2018. Subinsular white matter encephalomala ifeanyi is new from that time. Benign bilateral basal ganglionic calcifications. Slight asymmetric enlargement of the right lateral ventricle due to the volume loss has progressed fr om 2018. There is otherwise mild generalized supratentorial volume loss. Paranasal sinuses and mastoid air cells are well pneumatized. Orbits and globes are intact. IMPRESSION: Old areas of encephalomalacia anterior and lateral right frontal lobe relating to prior strokes or tr aumatic insults. Subinsular white matter encephalomalacia on the right has developed new since 2018. Secondary asymmetric enlargement of the right lateral ventricle from the associated volume loss. No a cute intracranial abnormality seen.
[2022-06-02] MEDS ORDERED: SODIUM CHLORIDE 0.9% 1,000 ML IV ONE (12:38)
[2022-06-02] MEDS ORDERED: NALOXONE 0.4 MG/ML 1 ML VIAL IV PRN (12:38)
--- NOTE | 2022-06-02 12:38 | ED ---
Weakness HPI - General Chief complaint: Weakness Stated complaint: trouble walking Time Seen by Provider: 06/02/22 09:56 Source: patient, family Mode of arrival: wheelchair Limitations: no limitations - History of Present Illness Initial comments: Patient presents with generalized weakness. She was seen by her physician. There were concern for stroke already this week. She has some dizziness. She has no focal weakness or deficits. She has no paresthesias. She has no chest pain or shortness of breath. - Related Data Home Medications Medication Instructions Recorded Confirmed Atenolol/Chlorthalidone 1 tab PO DAILY 12/25/17 12/25/17 [Atenolol/Chlorthalidone 50-25] Glimepiride [Amaryl] 2 mg PO AC-BRKFST 12/25/17 12/25/17 Levothyroxine Sodium [Synthroid] 75 mcg PO DAILY 12/25/17 12/25/17 Potassium Chloride ER [K-Dur 20] 20 meq PO BID 12/25/17 12/25/17 lisinopriL [Zestril] 2.5 mg PO DAILY 12/25/17 12/25/17 metFORMIN HCL [Glucophage] 500 mg PO AC-SUPPER 12/25/17 12/25/17 Previous Rx's Medication Instructions Recorded Aspirin 325 mg PO DAILY tab 12/26/17 Atorvastatin [Lipitor] 40 mg PO AC-SUPPER #30 tab 12/26/17 Allergies Allergy/AdvReac Type Severity Reaction Status Date / Time No Known Allergies Allergy Verified 06/02/22 09:54 Review of Systems ROS Statement: Those systems with pertinent positive or pertinent negative responses have been documented in the HPI. ROS Other: All systems not noted in ROS Statement are negative. Past Medical History Past Medical History: CVA/TIA, Diabetes Mellitus, Hyperlipidemia, Hypertension, Thyroid Disorder History of Any Multi-Drug Resistant Organisms: None Reported Past Surgical History: No Surgical Hx Reported Past Anesthesia/Blood Transfusion Reactions: No Reported Reaction Past Psychological History: No Psychological Hx Reported Smoking Status: Never smoker Past Alcohol Use History: None Reported Past Drug Use History: None Reported - Past Family History Mother Family Medical History: Congestive Heart Failure (CHF), CVA/TIA Additional Family Medical History / Comment(s): Mother had history of hypertension, diabetes, TIAs. No cancer history. Father Family Medical History: Myocardial Infarction ([place]) Additional Family Medical History / Comment(s): Mother from a myocardial infarction. Brother(s) Additional Family Medical History / Comment(s): Patient had 3 brothers. One from a myocardial infraction with history of obstructive sleep apnea. One from some type of aneurysm and one from alcohol abuse. Sister(s) Additional Family Medical History / Comment(s): She has 2 sisters and one has coronary artery disease status post CABG. Son(s) Additional Family Medical History / Comment(s): Patient has one son with diabetes mellitus type 2. Patient has one daughter with no major medical problems. General Exam Limitations: no limitations General appearance: alert, in no apparent distress Head exam: Present: atraumatic, normocephalic, normal inspection Eye exam: Present: normal appearance, PERRL, EOMI. Absent: scleral icterus, conjunctival injection, periorbital swelling ENT exam: Present: normal exam, mucous membranes moist Neck exam: Present: normal inspection. Absent: tenderness, meningismus, lymphadenopathy Respiratory exam: Present: normal lung sounds bilaterally. Absent: respiratory distress, wheezes, rales, rhonchi, stridor Cardiovascular Exam: Present: regular rate, normal rhythm, normal heart sounds. Absent: systolic murmur, diastolic murmur, rubs, gallop, clicks GI/Abdominal exam: Present: soft, normal bowel sounds. Absent: distended, tenderness, guarding, rebound, rigid Extremities exam: Present: normal inspection, full ROM, normal capillary refill. Absent: tenderness, pedal edema, joint swelling, calf tenderness Back exam: Present: normal inspection Neurological exam: Present: alert, oriented X3, CN II-XII intact Psychiatric exam: Present: normal affect, normal mood Skin exam: Present: warm, dry, intact, normal color. Absent: rash Course Vital Signs 06/02/22 09:52 Temperature 98.4 F Pulse Rate 69 Respiratory 20 Rate Blood Pressure 115/75 O2 Sat by Pulse 97 Oximetry EKG Findings - EKG Comments: EKG Findings:: 12-lead EKG shows ventricular rate 55 bpm, normal VA interval, normal QRS complexes, interpreted by me as sinus bradycardia. Medical Decision Making - Medical Decision Making Patient presents with weakness. I did obtain additional history from independent historians, the patient's and daughter. CT of the brain was independently reviewed by me showing evidence of old stroke but no mass or bleed. Chest x-ray was independently reviewed by me shows no pneumonia or pneumothorax. Laboratory studies interpreted by me showing elevated TSH, and also acute hyponatremia. I ordered the patient 1 L normal saline IV bolus for rehydration. I had a discussion with the patient's primary care physician for reevaluation. Was pt. sent in by a medical professional or institution (, [facility], [employer], urgent care, hospital, or alf...) When possible be specific @ -[No] Did you speak to anyone other than the patient for history (EMS, parent, family, police, friend...)? What history was obtained from this source @ -I spoke with the patient's primary care doctor Did you review nursing and triage notes (agree or disagree)? Why? @ -[I reviewed and agree with nursing and triage notes] Were old charts reviewed (outside hosp., previous admission, EMS record, old E KG, old radiological studies, urgent care reports/EKG's, alf records)? Report findings @ -[No old charts were reviewed] Differential Diagnosis (chest pain, altered mental status, abdominal pain women, abdominal pain men, vaginal bleeding, weakness, fever, dyspnea, syncope, headache, dizziness, GI bleed, back pain, seizure, CVA, palpatations, mental h ealth)? @ -[not applicable] EKG interpreted by me (3pts min.). @ -[As above] X-rays interpreted by me (1pt min.). @ -[None done] CT interpreted by me (1pt min.). @ -[None done] U/S interpreted by me (1pt. min.). @ -[None done] What testing was considered but not performed or refused? (CT, X-rays, U/S, labs)? Why? @ -[None] What meds were considered but not given or refused? Why? @ -[None] Did you discuss the management of the patient with other professionals (professionals i.e. [facility] Rosetnhal, [employer]AGE [employer]TER, lab, RT, psych nurse, social work administrator, shaper and presser, teacher, officer captain, rifle case repairer)? Give summary @ -[No] Was smoking cessation discussed for >3mins.? @ -[No] Was critical care preformed (if so, how long)? @ -[No] Were there social determinants of health that impacted care today? How? (Homelessness, low income, unemployed, alcoholism, drug addiction, transportation, low edu. Level, literacy, decrease access to med. care, long-term, rehab)? @ -[No] Was there de-escalation of care discussed even if they declined (Discuss DNR or withdrawal of care, Hospice)? DNR status @ -[No] What co-morbidities impacted this encounter? (DM, HTN, Smoking, COPD, CAD, Cancer, CVA, ARF, Chemo, Hep., AIDS, mental health diagnosis, sleep apnea, morbid obesity)? @ -[None] Was patient admitted / discharged? Hospital course, mention meds given and route, prescriptions, significant lab abnormalities, going to OR and other pertinent info. @ -[hospital course] Undiagnosed new problem with uncertain prognosis? @ -[No] Drug Therapy requiring intensive monitoring for toxicity (Heparin, Nitro, Insulin, Cardizem)? @ -[No] Were any procedures done? @ -[No] Diagnosis/symptom? @ -Acute hyponatremia Acute, or Chronic, or Acute on Chronic? @ -[default] Uncomplicated (without systemic symptoms) or Complicated (systemic symptoms)? @ -[default] Side effects of treatment? @ -[No] Exacerbation, Progression, or Severe Exacerbation? @ -[No] Poses a threat to life or bodily function? How? (Chest pain, [place], [place], pneumonia, PE, COPD, DKA, ARF, appy, cholecystitis, CVA, Diverticulitis, Homicidal, Suicidal, threat to staff... and all critical care pts) @ -[No] - Lab Data Result diagrams: 06/02/22 10:00 06/02/22 10:00 Lab Results 06/02/22 06/02/22 06/02/22 Range/Units 10:00 10:00 10:00 WBC 10.1 (3.8-10.6) k/uL RBC 4.81 (3.80-5.40) m/uL Hgb 14.1 (11.4-16.0) gm/dL Hct 41.4 (34.0-46.0) % MCV 86.1 (80.0-100.0) fL MCH 29.4 (25.0-35.0) pg MCHC 34.1 (31.0-37.0) g/dL RDW 12.5 (11.5-15.5) % Plt Count 251 (150-450) k/uL MPV 8.5 Neutrophils % 85 % Lymphocytes % 6 % Monocytes % 7 % Eosinophils % 1 % Basophils % 0 % Neutrophils # 8.5 H (1.3-7.7) k/uL Lymphocytes # 0.6 L (1.0-4.8) k/uL Monocytes # 0.7 (0-1.0) k/uL Eosinophils # 0.1 (0-0.7) k/uL Basophils # 0.0 (0-0.2) k/uL PT 11.0 (9.0-12.0) sec INR 1.1 (<1.2) APTT 22.1 (22.0-30.0) sec Sodium 126 L (137-145) mmol/L Potassium 4.2 (3.5-5.1) mmol/L Chloride 91 L (98-107) mmol/L Carbon Dioxide 26 (22-30) mmol/L Anion Gap 9 mmol/L BUN 18 H (7-17) mg/dL Creatinine 0.64 (0.52-1.04) mg/dL Est GFR (CKD-EPI)AfAm >90 (>60 ml/min/1.73 sqM) Est GFR (CKD-EPI)NonAf 81 (>60 ml/min/1.73 sqM) Glucose 259 H (74-99) mg/dL Plasma Lactic Acid Roderick (0.7-2.0) mmol/L Calcium 9.4 (8.4-10.2) mg/dL Magnesium 1.7 (1.6-2.3) mg/dL Total Bilirubin 2.1 H (0.2-1.3) mg/dL AST 44 H (14-36) U/L ALT 31 (4-34) U/L Alkaline Phosphatase 51 (38-126) U/L Troponin I (0.000-0.034) ng/mL NT-Pro-B Natriuret Pep pg/mL Total Protein 7.3 (6.3-8.2) g/dL Albumin 3.8 (3.5-5.0) g/dL TSH 5.970 H (0.465-4.680) mIU/L 01/18/23 01/18/23 01/18/23 Range/Units 10:00 10:00 10:51 WBC (3.8-10.6) k/uL RBC (3.80-5.40) m/uL Hgb (11.4-16.0) gm/dL Hct (34.0-46.0) % MCV (80.0-100.0) fL MCH (25.0-35.0) pg MCHC (31.0-37.0) g/dL RDW (11.5-15.5) % Plt Count (150-450) k/uL MPV Neutrophils % % Lymphocytes % % Monocytes % % Eosinophils % % Basophils % % Neutrophils # (1.3-7.7) k/uL Lymphocytes # (1.0-4.8) k/uL Monocytes # (0-1.0) k/uL Eosinophils # (0-0.7) k/uL Basophils # (0-0.2) k/uL PT (9.0-12.0) sec INR (<1.2) APTT (22.0-30.0) sec Sodium (137-145) mmol/L Potassium (3.5-5.1) mmol/L Chloride (98-107) mmol/L Carbon Dioxide (22-30) mmol/L Anion Gap mmol/L BUN (7-17) mg/dL Creatinine (0.52-1.04) mg/dL Est GFR (CKD-EPI)AfAm (>60 ml/min/1.73 sqM) Est GFR (CKD-EPI)NonAf (>60 ml/min/1.73 sqM) Glucose (74-99) mg/dL Plasma Lactic Acid Roderick 2.0 (0.7-2.0) mmol/L Calcium (8.4-10.2) mg/dL Magnesium (1.6-2.3) mg/dL Total Bilirubin (0.2-1.3) mg/dL AST (14-36) U/L ALT (4-34) U/L Alkaline Phosphatase (38-126) U/L Troponin I <0.012 (0.000-0.034) ng/mL NT-Pro-B Natriuret Pep 118 pg/mL Total Protein (6.3-8.2) g/dL Albumin (3.5-5.0) g/dL TSH (0.465-4.680) mIU/L Disposition Clinical Impression: Cerebrovascular accident, Hyponatremia Disposition: ADMITTED IP TO THIS HOSP Condition: Fair Is patient prescribed a controlled substance at d/c from ED?: No Referrals: Yohana Wallace MD [Primary Care Provider] - 1-2 days
[2022-06-02 14:14] LABS: Appearance,Urine Clear (Clear); Bilirubin,Urine Negative (Negative); Blood,Urine Negative (Negative); Color,Urine Yellow; Glucose,Urine (UA) Negative (Negative); Ketones,Urine Negative (Negative); Leukocyte Esterase,Urine Negative (Negative); Nitrite,Urine Negative (Negative); Protein,Urine Negative (Negative); Specific Gravity,Urine 1.013 (1.001-1.035)
[2022-06-02] MEDS: metFORMIN 500 MG TAB PO SCH (18:04)
[2022-06-02] MEDS: ATORVASTATIN 40 MG TAB PO SCH (18:04)
[2022-06-02] MEDS: POTASSIUM CHLORIDE ER 20 MEQ TAB.ER PO SCH (21:26)
[2022-06-03 06:03] LABS: Glucose,Whole Blood 148 mg/dL (70-110)
[2022-06-03] MEDS: GLIMEPIRIDE 2 MG TAB PO SCH (06:40)
[2022-06-03] MEDS: LEVOTHYROXINE 75 MCG TAB PO SCH (06:40)
[2022-06-03] MEDS: POTASSIUM CHLORIDE ER 20 MEQ TAB.ER PO SCH ×2 (08:49→20:03)
[2022-06-03] MEDS: ASPIRIN 325 MG TAB PO SCH (08:49)
[2022-06-03] MEDS ORDERED: CHLORTHALIDONE 25 MG TAB PO SCH (09:00)
[2022-06-03] MEDS ORDERED: atenoloL 50 MG TAB PO SCH (09:00)
--- NOTE | 2022-06-03 10:21 | US ---
EXAMINATION TYPE: US carotid duplex BILAT DATE OF EXAM: 06/03/2022 COMPARISON: NONE CLINICAL HISTORY: cva. CVA TECHNIQUE: Carotid duplex ultrasound examination. Indirect Doppler criteria was utilized. FINDINGS: EXAM MEASUREMENTS: RIGHT: Peak Systolic Velocity (PSV) cm/sec ----- Right CCA: 62.4 ----- Right ICA: 60.9 ----- Right ECA: 104.3 ICA/CCA ratio: 1.0 RIGHT: End Diastole cm/sec ----- Right CCA: 11.5 ----- Right ICA: 8.6 ----- Right ECA: 0 LEFT: Peak Systolic Velocity (PSV) cm/sec ----- Left CCA: 66.7 ----- Left ICA: 112 ----- Left ECA: 106.1 ICA/CCA ratio: 1.7 LEFT: End Diastole cm/sec ----- Left CCA: 12 ----- Left ICA: 21.5 ----- Left ECA: 9.6 VERTEBRALS (direction of flow): Right Vertebral: Antegrade Left Vertebral: Antegrade Rhythm: Normal DIESEL TRUCK DRIVER NOTES: No significant stenosis seen Mild diffuse wall thickening is present. There are a few small plaques present. Plaquing at the right carotid bulb is present without flow-limiting stenosis. Plaquing within the left carotid bulb is pre sent without significant flow-limiting stenosis. IMPRESSION: 1. Atheromatous plaque and intimal thickening without significant flow-limiting stenosis. Criteria for Assigning % of Stenosis / Diameter reduction (Estimation based on the indirect measurements of the internal carotid artery velocities (ICA PSV). 1. Normal (no stenosis)=ICA PSV < 125 cm/s: ratio < 2.0: ICA EDV<40 cm/s. 2. Less than 50% stenosis=ICA PSV < 125 cm/s: ratio < 2.0: ICA EDV<40 cm/s. 3. 50 to 69% stenosis=ICA PSV of 125 to 230 cm/s: ration 2.0 ? 4.0: ICA EDV 40-100 cm/s. 4. Greater than 70% stenosis to near occlusion= ICA PSV > 230 cm/s: ratio > 4.0: ICA EDV > 100 cm/s. 5. Near occlusion= ICA PSV velocities may be low or undetectable: variable ratio and ICA EDV. 6. Total occlusion=unable to detect flow.
--- NOTE | 2022-06-03 11:54 | P.CNNES ---
History of Present Illness Consult date: 06/03/22 Requesting physician: Livia Leone Reason for Consult: weakness r/o cva History of Present Illness: This is an 87-year-old woman with history of stroke about 5 years ago, diabetes mellitus, hypertension and hypothyroidism who presented emergency department because of generalized weakness. Some of the history is obtained from the patient's daughter and was at bedside. Seems the patient has been having generalized weakness for the past 1 week. According to the daughter she had some ear infection and received some medication and unsure the name medication and that medication was stopped. The patient has not been having any nausea vomiting any dizziness or ringing in the ears. But has been feeling gen eralized weak over the past 1 week and that has been laying in bed for the past 2 days prior to this in the hospital. She denies of any nausea vomiting, focal weakness, numbness, visual disturbance. She has a stroke in the last stroke is about possibly 5 years ago. Per daughter she walks slow at home. Patient is on aspirin 325 daily and Lipitor 40 mg daily. Some of the workup during his hospital visit consisted of: Sodium is 126, sugar serum is 259, TSH is 5.97 (which is abnormal) CT of the head is reported as old area of the supplements the anterior and lateral right frontal lobe relating to prior stroke or traumatic insults. Sup insular white matter encephalomalacia on the right has developed new since 2018. Secondary asymmetry enlargement of the right lateral ventricle from the ass ociated volume loss. No acute intracranial abnormality seen. I personally reviewed the CT and I agree the patient does have an supplements over the right frontal insular region. There is no acute or subacute stroke and there is no typical hemorrhage. EKG is reported as sinus bradycardia with frequent supraventricular premature complexes. Carotid duplex is reported as a mattress plaque and intimal thickening without significant flow limiting stenosis. Review of Systems Review of system: The 12 point system was reviewed and apparent positive and negative per HPI. Past Medical History Past Medical History: CVA/TIA, Diabetes Mellitus, Hyperlipidemia, Hypertension, Thyroid Disorder History of Any Multi-Drug Resistant Organisms: None Reported Past Surgical History: No Surgical Hx Reported Past Anesthesia/Blood Transfusion Reactions: No Reported Reaction Past Psychological History: No Psychological Hx Reported Smoking Status: Never smoker Past Alcohol Use History: None Reported Additional Past Alcohol Use History / Comment(s): She is a lifelong nonsmoker, no illicit drug use, no alcohol use. Past Drug Use History: None Reported - Past Family History Mother Family Medical History: Congestive Heart Failure (CHF), CVA/TIA Additional Family Medical History / Comment(s): Mother had history of hypertension, diabetes, TIAs. No cancer history. Father Family Medical History: Myocardial Infarction ([place]) Additional Family Medical History / Comment(s): Mother from a myocardial infarction. Brother(s) Additional Family Medical History / Comment(s): Patient had 3 brothers. One from a myocardial infraction with history of obstructive sleep apnea. One from some type of aneurysm and one from alcohol abuse. Sister(s) Additional Family Medical History / Comment(s): She has 2 sisters and one has coronary artery disease status post CABG. Son(s) Additional Family Medical History / Comment(s): Patient has one son with diabetes mellitus type 2. Patient has one daughter with no major medical problems. Medications and Allergies Home Medications Medication Instructions Recorded Confirmed Type Atenolol/Chlorthalidone 1 tab PO DAILY 12/25/17 06/02/22 History [Atenolol/Chlorthalidone 50-25] Glimepiride [Amaryl] 2 mg PO AC-BRKFST 12/25/17 06/02/22 History Levothyroxine Sodium [Synthroid] 75 mcg PO DAILY 12/25/17 06/02/22 History Potassium Chloride ER [K-Dur 20] 20 meq PO BID 12/25/17 06/02/22 History metFORMIN HCL [Glucophage] 500 mg PO AC-SUPPER 12/25/17 06/02/22 History Aspirin 325 mg PO DAILY tab 12/26/17 06/02/22 Rx Atorvastatin [Lipitor] 40 mg PO AC-SUPPER #30 tab 12/26/17 06/02/22 Rx Multivitamin/Iron/Folic Acid 1 tab PO DAILY 06/02/22 06/02/22 History [Centrum Adults Tablet] Allergies Allergy/AdvReac Type Severity Reaction Status Date / Time No Known Allergies Allergy Verified 06/02/22 13:10 Physical Examination - Vital Signs Vital Signs: Vital Signs Temp Pulse Pulse Resp BP BP Pulse Ox 06/03/22 08:00 98.1 F 59 L 20 116/60 96 06/03/22 04:00 98.4 F 49 L 12 110/50 98 06/02/22 23:29 98.5 F 57 L 12 125/61 96 06/02/22 20:00 98.2 F 68 12 127/67 95 06/02/22 19:06 98.8 F 86 16 141/64 97 06/02/22 18:00 85 19 120/59 99 06/02/22 17:00 56 L 20 117/63 97 06/02/22 16:00 51 L 22 104/60 98 06/02/22 15:21 98.2 F 52 L 116/55 99 06/02/22 15:00 84 20 111/59 99 06/02/22 13:00 67 18 112/94 98 06/02/22 12:00 67 21 137/76 97 06/02/22 11:00 64 20 118/76 99 Intake and Output 06/02/22 06/03/22 06/03/22 22:59 06:59 14:59 Output Total 1400 Balance -1400 Output: Urine 1400 Other: Voiding Method External Catheter External Catheter External Catheter Weight 49.895 kg GENERAL: The patient is lying in bed and is not in acute distress. CHEST: The heart rate is regular rate rhythm. No murmurs to auscultation. LUNG: Clear to auscultation bilaterally no wheezing noted throughout. Not labored breathing. ABDOMEN/GI: Bowel sounds present in all 4 quadrants. No tenderness to palpation throughout. NEUROLOGICAL: Higher mental function: The patient is awake, alert, oriented to self, place and time. Patient is following commands. No aphasia and no neglect. Cranial nerves: The pupils are round, equal and reactive to light and accommodation. Visual kirkpatrick are full to confrontation throughout. Extraocular movement is intact no nystagmus is noted. Facial sensation is normal to touch throughout. The facial strength is normal throughout. Hearing is normal bilaterally to hand rub. Tongue is midline and moved [id number] without any difficulty. No dysarthria is noted. Shoulder shrug is normal bilaterally. Motor: Gait is very slow walking. The strength is 5 over 5 throughout. Normal tone and bulk. Cerebellum: Normal finger to nose bilaterally. Sensation: Sensation is normal to touch throughout. Reflexes (right/left):1+ throughout Plantars are downgoing bilaterally. Results - Laboratory Findings CBC and BMP: 06/02/22 10:00 06/02/22 10:00 Abnormal Lab Findings: Abnormal Labs 06/02/22 06/02/22 06/03/22 10:00 10:00 06:02 Neutrophils # 8.5 H Lymphocytes # 0.6 L Sodium 126 L Chloride 91 L BUN 18 H Glucose 259 H POC Glucose (mg/dL) 148 H Total Bilirubin 2.1 H AST 44 H TSH 5.970 H Assessment and Plan Assessment: Generalized weakness: Possible Uncontrolled hypothyroid can cause this as well as hyponatremia. No focal deficits and does not appear acute ischemic stroke Hypothyroidism and occur TSH is elevated Hyponatremia sodium is 126 History of stroke patient has encephalomalacia over the right hemisphere pr edominantly right frontal insular region Diabetes mellitus and her sugar on presentation was 259 Hypertension Plan: I ordered vitamin B12, folate,CK level I'll hold MRI of the brain for now since the patient has no focal deficits. But if the patient continues to have generalized weakness or any new neurological issues then would recommend proceeding with MRI the brain. I have spoke with patient's family and they are in agreement of holding MRI Brain. Continue aspirin 325 and Lipitor 40 mg daily for secondary stroke prophylaxis Cardiology is consulted for ectopic atrial beats 2-D echo was ordered and is pending PT OT are consulted We'll defer the management of the hyponatremia and the the hypothyroidism and there is at the medical management to the primary team The plan is discussed with patient, her and daughter who are at bedside. Thank you for the consultation. Time with Patient: Greater than 30
[2022-06-03 12:00] LABS: Glucose,Whole Blood 109 mg/dL (70-110)
[2022-06-03] MEDS: amLODIPine 2.5 MG TAB PO SCH (12:06)
--- NOTE | 2022-06-03 13:31 | P.HPIM ---
History of Present Illness H&P Date: 06/03/22 HISTORY OF PRESENT ILLNESS This is an 87-year-old female with past medical history of hypertension, hyperlipidemia, hypothyroidism, diabetes mellitus type 2, macular degeneration, CVA. Patient presented to the office yesterday complaining of weakness and difficulty with ambulation. She had gone to the urgent care on 05/21/2022 for earache and was given naproxen and amoxicillin. She did stop taking her medications when she was feeling better but then on Tuesday 05/30, patient became weak and had a hard time walking and getting herself dressed. Patient was sent into the hospital for further evaluation and rule out CVA. Patient presented with heart rate of 69, blood pressure 115/75, pulse ox 97% on room air. Sinus arrhythmia WBC 10.1, hemoglobin 14.1, platelet count 251. INR 1.1. Sodium 126, potassium 4.2, chloride 91, CO2 26, BUN 18 and creatinine 0.64. Blood sugar 259. Lactic acid 2. Calcium 9.4. Magnesium 1.7. Total bilirubin 2.1, AST 44, ALT 31, alkaline phosphatase 51. Troponin negative 1. ProBNP 118. TSH 5.97. Urinalysis was negative for infection. CAT scan of the brain revealed old areas of encephalomalacia anterior and lateral right frontal lobe related to prior strokes or traumatic insults. Subinsular white matter encephalomalacia on the right has developed new since 2018. Secondary asymmetric enlargement of the right lateral ventricle from the associated volume loss. No acute intracranial abnormality. Chest x-ray reveals no acute cardio pulmonary disease process. COPD changes. Hiatal hernia. Carotid ultrasound revealed no significant stenosis Patient has been seen by neurology and vitamin B12, folate and CK levels of been ordered. No plan for MRI at this point due to patient not having focal deficits. Recommendations for full strength aspirin and Lipitor 40. Echocardiogram is pending. REVIEW OF SYSTEMS Constitutional: No fever, no chills, no night sweats. No weight change. Reports weakness, Reports fatigue no lethargy. No daytime sleepiness. EENT: No headache. No blurred vision or double vision, no loss of vision. No loss of Hearing, no ringing in the ears, no dizziness. No nasal drainage or congestion. No epistaxis. No sore throat. Lungs: No shortness of breath, cough, no sputum production. No wheezing. Cardiovascular: No chest pain, no lower extremity edema. No palpitations. No paroxysmal nocturnal dyspnea. No orthopnea. No lightheadedness or dizziness. No syncopal episodes. Abdominal: No abdominal pain. No nausea, vomiting. No diarrhea. No constipation. No bloody or tarry stools. No loss of appetite. Genitourinary: No dysuria, increased frequency, urgency. No urinary retention. Musculoskeletal: No myalgias. Reports muscle weakness, Reports gait dysfunct ion, no frequent falls. No back pain. No neck pain. Integumentary: No wounds, no lesions. No rash or pruritus. No unusual bruising. No change in hair or nails. Neurologic: No aphasia. No facial droop. No change in mentation. No head injury. No headache. No paralysis. No paresthesia. Psychiatric: No depression. No anxiety. No mood swings. Endocrine: No abnormal blood sugars. No weight change. No excessive sweating or thirst. No cold intolerance. MEDICAL HISTORY Hypertension Hyperlipidemia Hypothyroidism Diabetes mellitus type 2 Macular degeneration CVA SURGICAL HISTORY None. SOCIAL HISTORY Patient is a lifelong nonsmoker, no illicit drug use, no alcohol use.. FAMILY HISTORY Father at age 43 from myocardial infarction with history of coronary artery disease, hypertension obesity. Mother at age 85 with heart disease and diabetes. Patient has 3 brothers and one of an aortic aneurysm at age 82. One from sleep apnea and the third from alcohol abuse. Patient has one sister from CABG at age 85 with history of COPD. And one sister that at age 79 from lung cancer. Patient has one son with diabetes mellitus type 2 at age 59 PHYSICAL EXAMINATION Gen: This is an 87 year old thin female patient. She is resting bed appears to be comfortable and in no acute distress. HEENT: Head is atraumatic, normocephalic. Pupils equal, round. Sclerae is anicteric. NECK: Supple. No JVD. No lymphadenopathy. No thyromegaly. LUNGS: Clear to auscultation. No wheezes or rhonchi. No intercostal retractions. HEART: First heart sound is depressed, second heart sound is normal, 2/6 systolic ejection murmur at the left sternal border, no S3, no S4. ABDOMEN: Soft. Bowel sounds are present. No masses. No tenderness. EXTREMITIES: No pedal edema. No calf tenderness. NEUROLOGICAL: Patient is awake, alert and oriented x3. Cranial nerves 2 through 12 are grossly intact. ASSESSMENT AND PLAN 1. Generalized weakness, rule out acute ischemic stroke. PT and OT consults. Neurology consult. Patient has been continued on aspirin 325 mg daily, Lipitor 40 mg daily for stroke prevention. Echocardiogram is pending. 2. Hyponatremia. Obtain serum osmolality, urine osmolality, urine sodium, cortisol level. 3. Hypothyroidism with elevated TSH. Free T4 ordered. Continue patient on levothyroxine 75 g daily 4. History of stroke with encephalomalacia the right hemisphere. 5. Hypertension. Continue patient on amlodipine 2.5 mg daily, lisinopril 2.5 mg daily. Discontinue atenolol and chlorthalidone per cardiology. 6. Hyperlipidemia. Continue atorvastatin 40 mg daily. 7. Diabetes mellitus type 2. Continue patient on glimepiride 2 mg before breakfast and metformin 500 mg at supper 8. Macular degeneration. 9. Sinus arrhythmia. Cardiology consult appreciated.. Patient will be admitted to the hospital for a minimum of 2 night stay. DISCHARGE PLAN Return home. Impression and plan of care have been directed as dictated by the signing physician. Livia Leone nurse practitioner acting as scribe for signing physician. Past Medical History Past Medical History: CVA/TIA, Diabetes Mellitus, Hyperlipidemia, Hypertension, Thyroid Disorder History of Any Multi-Drug Resistant Organisms: None Reported Past Surgical History: No Surgical Hx Reported Past Anesthesia/Blood Transfusion Reactions: No Reported Reaction Past Psychological History: No Psychological Hx Reported Smoking Status: Never smoker Past Alcohol Use History: None Reported Additional Past Alcohol Use History / Comment(s): She is a lifelong nonsmoker, no illicit drug use, no alcohol use. Past Drug Use History: None Reported - Past Family History Mother Family Medical History: Congestive Heart Failure (CHF), CVA/TIA Additional Family Medical History / Comment(s): Mother had history of hypertension, diabetes, TIAs. No cancer history. Father Family Medical History: Myocardial Infarction (OR) Additional Family Medical History / Comment(s): Mother from a myocardial infarction. Brother(s) Additional Family Medical History / Comment(s): Patient had 3 brothers. One from a myocardial infraction with history of obstructive sleep apnea. One from some type of aneurysm and one from alcohol abuse. Sister(s) Additional Family Medical History / Comment(s): She has 2 sisters and one has coronary artery disease status post CABG. Son(s) Additional Family Medical History / Comment(s): Patient has one son with di abetes mellitus type 2. Patient has one daughter with no major medical problems. Medications and Allergies Home Medications Medication Instructions Recorded Confirmed Type Atenolol/Chlorthalidone 1 tab PO DAILY 12/25/17 06/02/22 History [Atenolol/Chlorthalidone 50-25] Glimepiride [Amaryl] 2 mg PO AC-BRKFST 12/25/17 06/02/22 History Levothyroxine Sodium [Synthroid] 75 mcg PO DAILY 12/25/17 06/02/22 History Potassium Chloride ER [K-Dur 20] 20 meq PO BID 12/25/17 06/02/22 History metFORMIN HCL [Glucophage] 500 mg PO AC-SUPPER 12/25/17 06/02/22 History Aspirin 325 mg PO DAILY tab 12/26/17 06/02/22 Rx Atorvastatin [Lipitor] 40 mg PO AC-SUPPER #30 tab 12/26/17 06/02/22 Rx Multivitamin/Iron/Folic Acid 1 tab PO DAILY 06/02/22 06/02/22 History [Centrum Adults Tablet] Allergies Allergy/AdvReac Type Severity Reaction Status Date / Time No Known Allergies Allergy Verified 06/02/22 13:10 Physical Exam Vitals: Vital Signs Temp Pulse Pulse Resp BP BP Pulse Ox 06/03/22 04:00 98.4 F 49 L 12 110/50 98 06/02/22 23:29 98.5 F 57 L 12 125/61 96 06/02/22 20:00 98.2 F 68 12 127/67 95 06/02/22 19:06 98.8 F 86 16 141/64 97 06/02/22 18:00 85 19 120/59 99 06/02/22 17:00 56 L 20 117/63 97 06/02/22 16:00 51 L 22 104/60 98 06/02/22 15:21 98.2 F 52 L 116/55 99 06/02/22 15:00 84 20 111/59 99 06/02/22 13:00 67 18 112/94 98 06/02/22 12:00 67 21 137/76 97 06/02/22 11:00 64 20 118/76 99 06/02/22 09:52 98.4 F 69 20 115/75 97 Intake and Output 06/02/22 06/03/22 06/03/22 22:59 06:59 14:59 Output Total 1400 Balance -1400 Output: Urine 1400 Other: Voiding Method External Catheter External Catheter Weight 49.895 kg Results CBC & Chem 7: 06/02/22 10:00 06/02/22 10:00 Labs: Abnormal Lab Results - Last 24 Hours (Table) 06/02/22 06/02/22 06/03/22 Range/Units 10:00 10:00 06:02 Neutrophils # 8.5 H (1.3-7.7) k/uL Lymphocytes # 0.6 L (1.0-4.8) k/uL Sodium 126 L (137-145) mmol/L Chloride 91 L (98-107) mmol/L BUN 18 H (7-17) mg/dL Glucose 259 H (74-99) mg/dL POC Glucose (mg/dL) 148 H (70-110) mg/dL Total Bilirubin 2.1 H (0.2-1.3) mg/dL AST 44 H (14-36) U/L TSH 5.970 H (0.465-4.680) mIU/L Thrombosis Risk Factor Assmnt - Choose All That Apply Any of the Below Risk Factors Present?: No Other Risk Factors: Yes Each Risk Factor Represents 3 Points: Age 75 years or older Other congenital or acquired thrombophilia - If yes, enter type in comment: No Thrombosis Risk Factor Assessment Total Risk Factor Score: 3 Thrombosis Risk Factor Assessment Level: Moderate Risk
--- NOTE | 2022-06-03 13:45 | P.CRDCN ---
History of Present Illness Consult date: 06/03/22 Reason for Consult (text): Ectopic atrial beats History of present illness: History of present illness: This is an 87-year-old female with past medical history of hypertension, hyperlipidemia, hypothyroidism, diabetes mellitus type 2, macular degeneration, CVA. We have been asked to see the patient due to ectopic atrial beats. Patient was at her PCP office with complaints of weakness and difficulty with ambulation he was sent into the emergency center for further evaluation and r/o cva. On Tuesday 05/30, patient became weak and had a hard time walking and getting herself dressed. Patient was sent into the hospital for further evaluation and rule out CVA. Patient denies having any lightheadedness or dizziness, no chest pain, no shortness of breath. EKG sinus rhythm with Sinus arrhythmia WBC 10.1, hemoglobin 14.1, platelet count 251. INR 1.1. Sodium 126, potassium 4.2, chloride 91, CO2 26, BUN 18 and creatinine 0.64. Blood sugar 259. Lactic acid 2. Calcium 9.4. Magnesium 1.7. Total bilirubin 2.1, AST 44, ALT 31, alkaline phosphatase 51. Troponin negative 1. ProBNP 118. TSH 5.97. Urinalysis was negative for infection. CAT scan of the brain revealed old areas of encephalomalacia anterior and lateral right frontal lobe related to prior strokes or traumatic insults. Subinsular white matter encephalomalacia on the right has developed new since 2018. Secondary asymmetric enlargement of the right lateral ventricle from the associated volume loss. No acute intracranial abnormality. Chest x-ray reveals no acute cardio pulmonary disease process. COPD changes. Hiatal hernia. Carotid ultrasound revealed no significant stenosis Home cardiac medications: Aspirin 325 mg daily, atenolol/chlorthalidone 5025 on e daily, atorvastatin 40 mg daily, potassium chloride 20 mEq twice daily, levothyroxine 75 g daily Review Of Systems: At the time of my evaluation: Constitutional: No fever, no chills. Reports weakness. EENT: No headache. No dizziness. Lungs: No shortness of breath, cough, no sputum production. No wheezing. Cardiovascular: No chest pain, no lower extremity edema. No palpitations. No paroxysmal nocturnal dyspnea. No orthopnea. No lightheadedness or dizziness. No syncopal episodes. Abdominal: No abdominal pain. No nausea, vomiting. No diarrhea. No constipation. No bloody or tarry stools. Genitourinary: No dysuria.. No urinary retention. Musculoskeletal: No myalgias. No muscle weakness, no frequent falls. No back pain. No neck pain. Integumentary: No wounds. No rash. No unusual bruising. Neurologic: No aphasia. No facial droop. No change in mentation. No head injury. No headache. Psychiatric: No depression. No anxiety. Endocrine: No abnormal blood sugars. Physical examination: Gen: This is a 87-year-old female. She is resting in bed appears to be comfortable and in no acute distress. VS: reviewed HEENT: Head is atraumatic, normocephalic. Pupils equal, round. Sclerae is anicteric. NECK: Supple. No JVD. LUNGS: Clear to auscultation. No wheezes or rhonchi. No intercostal retractions. HEART: Regular rate and rhythm. Systolic murmur. ABDOMEN: Soft. No tenderness. EXTREMITIES: No pedal edema. NEUROLOGICAL: Patient is awake, alert and oriented x3. Cranial nerves 2 through 12 are grossly intact. Assessment: Weakness without clear signs of CVA Bradycardia Hypertension Hyperlipidemia Hypothyroidism Diabetes mellitus type 2 History of CVA Plan: EKG is sinus rhythm with sinus arrhythmia with no concern except for mild bradycardia. Recommend discontinuing beta saul in place patient on amlodipine 2.5 mg daily Discontinue chlorthalidone Further recommendations to follow based upon clinical course Thank you kindly for this consultation. Nurse practitioner note has been reviewed, I agree with documented findings and plan of care. Patient was seen and examined. Past Medical History Past Medical History: CVA/TIA, Diabetes Mellitus, Hyperlipidemia, Hypertension, Thyroid Disorder History of Any Multi-Drug Resistant Organisms: None Reported Past Surgical History: No Surgical Hx Reported Past Anesthesia/Blood Transfusion Reactions: No Reported Reaction Past Psychological History: No Psychological Hx Reported Smoking Status: Never smoker Past Alcohol Use History: None Reported Additional Past Alcohol Use History / Comment(s): She is a lifelong nonsmoker, no illicit drug use, no alcohol use. Past Drug Use History: None Reported - Past Family History Mother Family Medical History: Congestive Heart Failure (CHF), CVA/TIA Additional Family Medical History / Comment(s): Mother had history of hyp ertension, diabetes, TIAs. No cancer history. Father Family Medical History: Myocardial Infarction (DC) Additional Family Medical History / Comment(s): Mother from a myocardial infarction. Brother(s) Additional Family Medical History / Comment(s): Patient had 3 brothers. One from a myocardial infraction with history of obstructive sleep apnea. One from some type of aneurysm and one from alcohol abuse. Sister(s) Additional Family Medical History / Comment(s): She has 2 sisters and one has coronary artery disease status post CABG. Son(s) Additional Family Medical History / Comment(s): Patient has one son with diabetes mellitus type 2. Patient has one daughter with no major medical problems. Medications and Allergies Home Medications Medication Instructions Recorded Confirmed Type Atenolol/Chlorthalidone 1 tab PO DAILY 12/25/17 06/02/22 History [Atenolol/Chlorthalidone 50-25] Glimepiride [Amaryl] 2 mg PO AC-BRKFST 12/25/17 06/02/22 History Levothyroxine Sodium [Synthroid] 75 mcg PO DAILY 12/25/17 06/02/22 History Potassium Chloride ER [K-Dur 20] 20 meq PO BID 12/25/17 06/02/22 History metFORMIN HCL [Glucophage] 500 mg PO AC-SUPPER 12/25/17 06/02/22 History Aspirin 325 mg PO DAILY tab 12/26/17 06/02/22 Rx Atorvastatin [Lipitor] 40 mg PO AC-SUPPER #30 tab 12/26/17 06/02/22 Rx Multivitamin/Iron/Folic Acid 1 tab PO DAILY 06/02/22 06/02/22 History [Centrum Adults Tablet] Allergies Allergy/AdvReac Type Severity Reaction Status Date / Time No Known Allergies Allergy Verified 06/02/22 13:10 Physical Exam Vitals: Vital Signs Temp Pulse Pulse Resp BP BP Pulse Ox 06/03/22 11:44 97.5 F L 90 20 114/70 99 06/03/22 08:00 98.1 F 59 L 20 116/60 96 06/03/22 04:00 98.4 F 49 L 12 110/50 98 06/02/22 23:29 98.5 F 57 L 12 125/61 96 06/02/22 20:00 98.2 F 68 12 127/67 95 06/02/22 19:06 98.8 F 86 16 141/64 97 06/02/22 18:00 85 19 120/59 99 06/02/22 17:00 56 L 20 117/63 97 06/02/22 16:00 51 L 22 104/60 98 06/02/22 15:21 98.2 F 52 L 116/55 99 06/02/22 15:00 84 20 111/59 99 06/02/22 13:00 67 18 112/94 98 06/02/22 12:00 67 21 137/76 97 Intake and Output 06/02/22 06/03/22 06/03/22 22:59 06:59 14:59 Output Total 1400 Balance -1400 Output: Urine 1400 Other: Voiding Method External Catheter External Catheter External Catheter Weight 49.895 kg Results 06/02/22 10:00 06/02/22 10:00 Coagulation 06/02/22 Range/Units 10:00 PT 11.0 (9.0-12.0) sec APTT 22.1 (22.0-30.0) sec Current Medications Generic Name Dose Route Start Last Admin Trade Name Freq PRN Reason Stop Dose Admin Amlodipine Besylate 2.5 mg 06/03/22 09:45 Amlodipine 2.5 Mg Tab PO DAILY [facility] Aspirin 325 mg 06/03/22 09:00 06/03/22 08:49 Aspirin 325 Mg Tab PO 325 mg DAILY LEIGHA Administration Atorvastatin Calcium 40 mg 06/02/22 17:30 06/02/22 18:04 Atorvastatin 40 Mg Tab PO 40 mg AC-SUPPER LEIGHA Administration Chlorthalidone 25 mg 06/03/22 09:00 Chlorthalidone 25 Mg Tab PO DAILY LEIGHA Glimepiride 2 mg 06/03/22 07:30 06/03/22 06:40 Glimepiride 2 Mg Tab PO 2 mg AC-BRKFST LEIGHA Administration Levothyroxine Sodium 75 mcg 06/03/22 06:30 06/03/22 06:40 Levothyroxine 75 Mcg Tab PO 75 mcg DAILY@0630 LEIGHA Administration Lisinopril 2.5 mg 06/03/22 09:00 06/03/22 08:49 Lisinopril 2.5 Mg Tab PO 2.5 mg DAILY LEIGHA Administration Metformin HCl 500 mg 06/02/22 17:30 06/02/22 18:04 Metformin 500 Mg Tab PO 500 mg AC-SUPPER LEIGHA Administration Naloxone HCl 0.2 mg 06/02/22 12:38 Naloxone 0.4 Mg/Ml 1 Ml Vial IV Q2M PRN Opioid Reversal Potassium Chloride 20 meq 06/02/22 21:00 06/03/22 08:49 Potassium Chloride Er 20 Meq Tab.Er PO 20 meq BID LEIGHA Administration Intake and Output 06/02/22 06/03/22 06/03/22 22:59 06:59 14:59 Output Total 1400 Balance -1400 Output: Urine 1400 Other: Voiding Method External Catheter External Catheter External Catheter Weight 49.895 kg 06/02/22 10:00 06/02/22 10:00
[2022-06-03 15:28] LABS: T4, Free (Free Thyroxine) 2.02 ng/dL (0.78-2.19)
[2022-06-03 16:43] LABS: Glucose,Whole Blood 142 mg/dL (70-110)
[2022-06-03] MEDS: metFORMIN 500 MG TAB PO SCH (17:18)
[2022-06-03] MEDS: ATORVASTATIN 40 MG TAB PO SCH (17:18)
[2022-06-03] MEDS: ENOXAPARIN 40 MG/0.4 ML SYRINGE SQ SCH (18:23)
[2022-06-03 20:03] LABS: Glucose,Whole Blood 154 mg/dL (70-110)
[2022-06-04 06:16] LABS: Glucose,Whole Blood 103 mg/dL (70-110)
[2022-06-04] MEDS: LEVOTHYROXINE 75 MCG TAB PO SCH (06:24)
[2022-06-04] MEDS: GLIMEPIRIDE 2 MG TAB PO SCH (06:24)
[2022-06-04 07:32] LABS: Basophils % (A) 0 %; Eosinophils # (A) 0.1 k/uL (0-0.7); Eosinophils % (A) 2 %; HCT 37.3 % (34.0-46.0); HGB 12.9 gm/dL (11.4-16.0); Lymphocytes # (A) 0.7 k/uL (1.0-4.8); Lymphocytes % (A) 9 %; MCH 30.2 pg (25.0-35.0); MCHC 34.6 g/dL (31.0-37.0); MCV 87.1 fL (80.0-100.0); Mean Platelet Volume 7.7; Monocytes # (A) 0.6 k/uL (0-1.0); Monocytes % (A) 8 %; Neutrophils # (A) 6.2 k/uL (1.3-7.7); Neutrophils % (A) 80 %; Platelet Count 224 k/uL (150-450); RBC 4.29 m/uL (3.80-5.40); RDW 12.5 % (11.5-15.5); WBC 7.7 k/uL (3.8-10.6)
--- NOTE | 2022-06-04 08:37 | CA ---
Transthoracic Echo Report Name: Aurora Appiah Age: 87 Gender: F : 1935 Exam Date: 06/03/2022 13:36 Exam Location: [place] [facility] Ht (in): 62 Wt (lb): 110 Ordering Physician: Livia Leone Attending/Referring Phys: [id number], Vasu Extension Supervisor Donna Louis, MAGEN Procedure CPT: Indications: LVF Cardiac Hx: Technical Quality: Fair Contrast 1: Total Dose (mL): Contrast 2: Total Dose (mL): MEASUREMENTS (Male / Female) Normal Values M-MODE Aortic Root Diameter MM 2.8 cm LA Systolic Diameter MM 2.6 cm LA Ao Ratio MM 0.9 AV Cusp Separation MM 1.3 cm DOPPLER AV Peak Velocity 147.7 cm/s AV Peak Gradient 8.7 mmHg LVOT Peak Velocity 93.1 cm/s LVOT Peak Gradient 3.5 mmHg MV Area PHT 3.3 cm??? MR Peak Velocity 402.7 cm/s MR Peak Gradient 64.9 mmHg Mitral E Point Velocity 105.7 cm/s Mitral A Point Velocity 103.6 cm/s Mitral E to A Ratio 1.0 MV Deceleration Time 231.0 ms TR Peak Velocity 258.5 cm/s TR Peak Gradient 26.7 mmHg PV Peak Velocity 91.3 cm/s PV Peak Gradient 3.3 mmHg FINDINGS Left Ventricle Mild concentric left ventricular hypertrophy. Right Ventricle Normal right ventricular size and function. Right Atrium Normal right atrial size. Left Atrium Normal left atrial size. Mitral Valve Mitral valve thickened. Mitral stenosis. [id number] mitral regurgitation. Aortic Valve Trileaflet aortic valve. No aortic regurgitation. No aortic stenosis. Tricuspid Valve Structurally normal tricuspid valve. [id number] tricuspid regurgitation. Pulmonic Valve Structurally normal pulmonic valve. Mild pulmonic regurgitation. Pericardium Small pericardial effusion. Aorta Normal size aortic root and proximal ascending aorta. CONCLUSIONS Mild LVH with preserved LV systolic function Mild, mixed mitral valve disease Previewed by: Dr. Stephon Grace MD (Electronically Signed) Final Date: 04 June 2022 08:36
[2022-06-04] MEDS: POTASSIUM CHLORIDE ER 20 MEQ TAB.ER PO SCH (08:47)
[2022-06-04] MEDS: amLODIPine 2.5 MG TAB PO SCH (08:47)
[2022-06-04] MEDS: ENOXAPARIN 40 MG/0.4 ML SYRINGE SQ SCH (08:47)
[2022-06-04] MEDS: ASPIRIN 325 MG TAB PO SCH (08:47)
[2022-06-04 09:49] VITALS: BP 102/58; PULSE 63; RESP 18; TEMP 97.9
--- NOTE | 2022-06-04 10:54 | P.PN ---
Subjective Progress Note Date: 06/04/22 I am following-up seeing the patient and she is accompanied by her . Patient states she wants to "leave today now" and repeated it to me multiple times. She feels she is doing well and denies of any focal deficits. Objective - Vital Signs Vital signs: Vital Signs Temp 97.9 F 06/04/22 08:00 Pulse 63 06/04/22 08:00 Resp 18 06/04/22 08:00 BP 102/58 06/04/22 08:00 Pulse Ox 96 06/04/22 08:00 FiO2 Intake & Output 06/03/22 06/04/22 06/04/22 18:59 06:59 18:59 Intake Total 690 236 Output Total 400 200 Balance 290 -200 236 Intake: Intake, IV Titration 450 Amount Sodium Chloride 0.9% 1, 450 000 ml @ 75 mls/hr IV . [id number] ONE Rx#:[id number] Oral 240 236 Output: Urine 400 200 Other: Voiding Method Toilet Toilet Toilet # Voids 2 # Bowel Movements 1 1 - Exam GENERAL: The patient is lying in bed and is not in acute distress. NEUROLOGICAL: Higher mental function: The patient is awake, alert, oriented to self, place and time. Patient is following commands. No aphasia and no neglect. Cranial nerves: The pupils are round, equal and reactive to light and accommodation. Visual kirkpatrick are full to confrontation throughout. Extraocular movement is intact no nystagmus is noted. Facial sensation is normal to touch throughout. The facial strength is normal throughout. Tongue is midline and moved [id number] without any difficulty. No dysarthria is noted. Shoulder shrug is normal bilaterally. Motor: Gait is deferred.The strength is 5 over 5 throughout. Normal tone and bulk. Cerebellum: Normal finger to nose bilaterally. Sensation: Sensation is normal to touch throughout. Reflexes (right/left):1+ throughout Plantars are downgoing bilaterally. Some of the workup during his hospital visit consisted of: Sodium is 126, sugar serum is 259, TSH is 5.97 (which is abnormal) but free T4: 2.02 Vitamin B12: 2162 Folate: 23.[address] of the head is reported as old area of the supplements the anterior and lateral right frontal lobe relating to prior stroke or traumatic insults. Sup insular white matter encephalomalacia on the right has developed new since 2018. Secondary asymmetry enlargement of the right lateral ventricle from the associ ated volume loss. No acute intracranial abnormality seen. I personally reviewed the CT and I agree the patient does have an supplements over the right frontal insular region. There is no acute or subacute stroke and there is no typical hemorrhage. EKG is reported as sinus bradycardia with frequent supraventricular premature complexes. Carotid duplex is reported as a mattress plaque and intimal thickening without significant flow limiting stenosis. - Labs CBC & Chem 7: 06/04/22 06:42 06/02/22 10:00 Labs: Abnormal Lab Results - Last 24 Hours (Table) 06/03/22 06/03/22 06/03/22 Range/Units 12:26 14:24 16:41 Lymphocytes # (1.0-4.8) k/uL POC Glucose (mg/dL) 142 H (70-110) mg/dL Osmolality 273 L (280-301) mosm/kg Vitamin B12 2162.0 H (200.0-944.0) pg/mL 06/03/22 06/04/22 Range/Units 20:02 06:42 Lymphocytes # 0.7 L (1.0-4.8) k/uL POC Glucose (mg/dL) 154 H (70-110) mg/dL Osmolality (280-301) mosm/kg Vitamin B12 (200.0-944.0) pg/mL Assessment and Plan Assessment: Generalized weakness: Possible Uncontrolled hypothyroid can cause this as well as hyponatremia. No focal deficits and does not appear acute ischemic stroke Hypothyroidism and occur TSH is elevated Hyponatremia sodium is 126 History of stroke patient has encephalomalacia over the right hemisphere predominantly right frontal insular region Diabetes mellitus and her sugar on presentation was 259 Hypertension Plan: I'll hold MRI of the brain for now since the patient has no focal deficits. But if the patient has any new neurological issues then would recommend proceeding with MRI the brain. Continue aspirin 325 and Lipitor 40 mg daily for secondary stroke prophylaxis Cardiology is consulted for ectopic atrial beats PT OT are consulted We'll defer the management of the hyponatremia and the the hypothyroidism and there is at the medical management to the primary team Recommend following-up with neurology team if continues to have any weakness for further work-up as outpatient within 1-2 weeks. The patient is requesting to leave the hospital and wanting to go home. Her stated he is ok with her going home. The plan is discussed with patient, her and her N.P. from primary team. Otherwise no further neurological work-up. Please notify neurology team if any further concerns. Time with Patient: Less than 30
--- NOTE | 2022-06-04 11:16 | P.PN ---
Subjective Progress Note Date: 06/04/22 History of present illness: This is an 87-year-old female with past medical history of hypertension, hyper lipidemia, hypothyroidism, diabetes mellitus type 2, macular degeneration, CVA. We have been asked to see the patient due to ectopic atrial beats. Patient was at her PCP office with complaints of weakness and difficulty with ambulation he was sent into the emergency center for further evaluation and r/o cva. On Tuesday 05/30, patient became weak and had a hard time walking and getting herself dres sed. Patient was sent into the hospital for further evaluation and rule out CVA. Patient denies having any lightheadedness or dizziness, no chest pain, no shortness of breath. EKG sinus rhythm with Sinus arrhythmia WBC 10.1, hemoglobin 14.1, platelet count 251. INR 1.1. Sodium 126, potassium 4.2, chloride 91, CO2 26, BUN 18 and creatinine 0.64. Blood sugar 259. Lactic acid 2. Calcium 9.4. Magnesium 1.7. Total bilirubin 2.1, AST 44, ALT 31, alkaline phosphatase 51. Troponin negative 1. ProBNP 118. TSH 5.97. Urinalysis was negative for infection. CAT scan of the brain revealed old areas of encephalomalacia anterior and lateral right frontal lobe related to prior strokes or traumatic insults. Subinsular white matter encephalomalacia on the right has developed new since 2018. Secondary asymmetric enlargement of the right lateral ventricle from the associated volume loss. No acute intracranial abnormality. Chest x-ray reveals no acute cardio pulmonary disease process. COPD changes. Hiatal hernia. Carotid ultrasound revealed no significant stenosis Home cardiac medications: Aspirin 325 mg daily, atenolol/chlorthalidone 5025 one daily, atorvastatin 40 mg daily, potassium chloride 20 mEq twice daily, levothyroxine 75 g daily 06/04 The patient denies any new concerns today and weakness is improved. She is very anxious to be discharged home today. Echocardiogram reveals mild LVH with preserved LV systolic function, mild mixed mitral valve disease. Heart rate has been in the 60s and 70s, blood pressure 102/58 and pulse ox 96% on room air. Repeat chemistry panel is pending. Physical examination: Gen: This is a 87-year-old female. She is resting in bed appears to be comfortable and in no acute distress. VS: reviewed HEENT: Head is atraumatic, normocephalic. Pupils equal, round. Sclerae is anicteric. NECK: Supple. No JVD. LUNGS: Clear to auscultation. No wheezes or rhonchi. No intercostal retractions. HEART: Regular rate and rhythm. Systolic murmur. ABDOMEN: Soft. No tenderness. EXTREMITIES: No pedal edema. NEUROLOGICAL: Patient is awake, alert and oriented x3. Cranial nerves 2 through 12 are grossly intact. Assessment: Weakness without clear signs of CVA Bradycardia Hyponatremia Hypertension Hyperlipidemia Hypothyroidism Diabetes mellitus type 2 History of CVA Plan: Continue patient on amlodipine 2.5 mg daily Discontinue atenolol and chlorthalidone Patient is cleared for discharge from cardiology. Nurse practitioner note has been reviewed, I agree with documented findings and plan of care. Patient was seen and examined. Objective - Vital Signs Vital signs: Vital Signs Temp 97.9 F 06/04/22 08:00 Pulse 63 06/04/22 08:00 Resp 18 06/04/22 08:00 BP 102/58 06/04/22 08:00 Pulse Ox 96 06/04/22 08:00 FiO2 Intake & Output 06/03/22 06/04/22 06/04/22 18:59 06:59 18:59 Intake Total 690 236 Output Total 400 200 Balance 290 -200 236 Intake: Intake, IV Titration 450 Amount Sodium Chloride 0.9% 1, 450 000 ml @ 75 mls/hr IV . [id number] ONE Rx#:[id number] Oral 240 236 Output: Urine 400 200 Other: Voiding Method Toilet Toilet Toilet # Voids 2 3 # Bowel Movements 1 1 - Labs CBC & Chem 7: 06/04/22 06:42 06/02/22 10:00 Labs: Abnormal Lab Results - Last 24 Hours (Table) 06/03/22 06/03/22 06/03/22 Range/Units 12:26 14:24 16:41 Lymphocytes # (1.0-4.8) k/uL POC Glucose (mg/dL) 142 H (70-110) mg/dL Osmolality 273 L (280-301) mosm/kg Vitamin B12 2162.0 H (200.0-944.0) pg/mL 06/03/22 06/04/22 Range/Units 20:02 06:42 Lymphocytes # 0.7 L (1.0-4.8) k/uL POC Glucose (mg/dL) 154 H (70-110) mg/dL Osmolality (280-301) mosm/kg Vitamin B12 (200.0-944.0) pg/mL
[2022-06-04 11:23] LABS: ALT 25 U/L (4-34); AST 22 U/L (14-36); African American GFR (CKD) >90 (>60 ml/min/1.73 sqM); Albumin 3.1 g/dL (3.5-5.0); Alkaline Phosphatase 55 U/L (38-126); Anion Gap 5 mmol/L; Blood Urea Nitrogen 14 mg/dL (7-17); Calcium 8.8 mg/dL (8.4-10.2); Carbon Dioxide 29 mmol/L (22-30); Chloride 95 mmol/L (98-107); Glucose 104 mg/dL (74-99); Non-African American GFR(CKD) 79 (>60 ml/min/1.73 sqM); Potassium 3.5 mmol/L (3.5-5.1); Sodium 129 mmol/L (137-145); Total Bilirubin 1.7 mg/dL (0.2-1.3); Total Protein 6.1 g/dL (6.3-8.2)
[2022-06-04 11:35] LABS: Glucose,Whole Blood 144 mg/dL (70-110)
--- NOTE | 2022-06-04 12:07 | P.DS ---
Providers Date of admission: 06/02/22 12:38 Expected date of discharge: 06/04/22 Attending physician: Yohana Wallace Consults: 06/03/22 07:33 Consult Physician Routine Consulting Provider: Taj Miller Consult Reason/Comments: Ectopic atrial beats Do you want consulting provider notified?: Yes 06/03/22 08:26 Consult Physician Routine Consulting Provider: Harjinder Rios Consult Reason/Comments: weakness r/o cva Do you want consulting provider notified?: Yes Primary care physician: Yohana Wallace Hospital Course: HISTORY OF PRESENT ILLNESS This is an 87-year-old female with past medical history of hypertension, hyperlipidemia, hypothyroidism, diabetes mellitus type 2, macular degeneration, CVA. Patient presented to the office yesterday complaining of weakness and difficulty with ambulation. She had gone to the urgent care on 05/21/2022 for earache and was given naproxen and amoxicillin. She did stop taking her medications when she was feeling better but then on Tuesday 05/30, patient became weak and had a hard time walking and getting herself dressed. Patient was sent into the hospital for further evaluation and rule out CVA. Patient presented with heart rate of 69, blood pressure 115/75, pulse ox 97% on room air. Sinus arrhythmia WBC 10.1, hemoglobin 14.1, platelet count 251. INR 1.1. Sodium 126, potassium 4.2, chloride 91, CO2 26, BUN 18 and creatinine 0.64. Blood sugar 259. Lactic acid 2. Calcium 9.4. Magnesium 1.7. Total bilirubin 2.1, AST 44, ALT 31, alkaline phosphatase 51. Troponin negative 1. ProBNP 118. TSH 5.97. Uri nalysis was negative for infection. CAT scan of the brain revealed old areas of encephalomalacia anterior and lateral right frontal lobe related to prior strokes or traumatic insults. Subinsular white matter encephalomalacia on the right has developed new since 2018. Secondary asymmetric enlargement of the right lateral ventricle from the associated volume loss. No acute intracranial abnormality. Chest x-ray reveals no acute cardio pulmonary disease process. COPD changes. Hiatal hernia. Carotid ultrasound revealed no significant stenosis Patient has been seen by neurology and vitamin B12, folate and CK levels of been ordered. No plan for MRI at this point due to patient not having focal deficits. Recommendations for full strength aspirin and Lipitor 40. Echocardiogram is pending. 06/04: The patient denies any new concerns today and weakness is improved. She is very anxious to be discharged home today. Echocardiogram reveals mild LVH with preserved LV systolic function, mild mixed mitral valve disease. Heart rate has been in the 60s and 70s, blood pressure 102/58 and pulse ox 96% on room air. Repeat chemistry panel sodium 129, potassium 3.5, chloride 95, CO2 29, BUN 14 and creatinine 0.7. Patient has been seen by cardiology and neurology and cleared for discharge. Patient will be discharged home in stable condition. DISCHARGE DIAGNOSES 1. Generalized weakness, rule out acute ischemic stroke. 2. Hyponatremia. 3. Hypothyroidism with elevated TSH. 4. History of stroke with encephalomalacia the right hemisphere. 5. Hypertension. 6. Hyperlipidemia. 7. Diabetes mellitus type 2. 8. Macular degeneration. 9. Sinus arrhythmia. DISCHARGE PLAN Return home. Greater than 35 minutes was utilized and coordinating patient's discharge. Impression and plan of care have been directed as dictated by the signing physician. Livia Leone nurse practitioner acting as scribe for signing logan jackson. Patient Condition at Discharge: Stable Plan - Discharge Summary New Discharge Prescriptions: New amLODIPine [Norvasc] 2.5 mg PO DAILY #30 tab lisinopriL [Zestril] 2.5 mg PO DAILY #30 tab Continue Glimepiride [Amaryl] 2 mg PO AC-BRKFST metFORMIN HCL [Glucophage] 500 mg PO AC-SUPPER Potassium Chloride ER [K-Dur 20] 20 meq PO BID Levothyroxine Sodium [Synthroid] 75 mcg PO DAILY Aspirin 325 mg PO DAILY tab Atorvastatin [Lipitor] 40 mg PO AC-SUPPER #30 tab Multivitamin/Iron/Folic Acid [Centrum Adults Tablet] 1 tab PO DAILY Discontinued Atenolol/Chlorthalidone [Atenolol/Chlorthalidone 50-25] 1 tab PO DAILY Discharge Medication List Glimepiride [Amaryl] 2 mg PO AC-BRKFST 12/25/17 [History] Levothyroxine Sodium [Synthroid] 75 mcg PO DAILY 12/25/17 [History] Potassium Chloride ER [K-Dur 20] 20 meq PO BID 12/25/17 [History] metFORMIN HCL [Glucophage] 500 mg PO AC-SUPPER 12/25/17 [History] Aspirin 325 mg PO DAILY tab 12/26/17 [Rx] Atorvastatin [Lipitor] 40 mg PO AC-SUPPER #30 tab 12/26/17 [Rx] Multivitamin/Iron/Folic Acid [Centrum Adults Tablet] 1 tab PO DAILY 06/02/22 [History] amLODIPine [Norvasc] 2.5 mg PO DAILY #30 tab 06/04/22 [Rx] lisinopriL [Zestril] 2.5 mg PO DAILY #30 tab 06/04/22 [Rx] Follow up Appointment(s)/Referral(s): Yohana Wallace MD [Primary Care Provider] - 1 Week Activity/Diet/Wound Care/Special Instructions: 1500 fluid restritions
== END 2022-06-04 14:12 | disposition home or self-care (01) | DRG 640 ==
LOC: EC 09:48 → 3SCARD 12:38
PROVIDERS: ADMIT Internal Medicine; ATTEND Internal Medicine
DX: E87.1 Hypo-osmolality and hyponatremia (principal); I63.9 Cerebral infarction, unspecified; E78.5 Hyperlipidemia, unspecified; I10 Essential (primary) hypertension; R00.1 Bradycardia, unspecified; E11.9 Type 2 diabetes mellitus without complications; E03.9 Hypothyroidism, unspecified; Z79.890 Hormone replacement therapy; F17.210 Nicotine dependence, cigarettes, uncomplicated; G93.89 Other specified disorders of brain; H35.30 Unspecified macular degeneration; I49.1 Atrial premature depolarization; I08.1 Rheumatic disorders of both mitral and tricuspid valves; K44.9 Diaphragmatic hernia without obstruction or gangrene; Z79.84 Long term (current) use of oral hypoglycemic drugs; Z79.82 Long term (current) use of aspirin; Z79.899 Other long term (current) drug therapy; Z86.73 Personal history of transient ischemic attack (TIA), and cerebral infarction without residual deficits
CPT/HCPCS: 36415; 70450; 71046; 80053; 81003; 82533; 82550; 82607; 82746; 83605; 83735; 83880; 83930; 83935; 84300; 84439; 84443; 84484; 85025; 85610; 85730; 93005; 93306; 93880; 96360; 96361; 99285

== ENCOUNTER 2022-12-08 03:36 | Emergency (ER) | payer MEDICARE, BC ==
[2022-12-08] MEDS ORDERED: ONDANSETRON 4 MG/2 ML VIAL IVP STA (04:12)
[2022-12-08] MEDS ORDERED: SODIUM CHLORIDE 0.9% 500 ML 500 ML IV STA ×2 (04:12→08:25)
[2022-12-08] MEDS ORDERED: PANTOPRAZOLE 40 MG/10 ML VIAL IVP STA (04:12)
[2022-12-08] MEDS ORDERED: HYDROmorphone 0.5 MG/0.5 ML SYRINGE IVP STA (04:12)
--- NOTE | 2022-12-08 04:23 | ED ---
General Adult HPI - General Source: patient, RN notes reviewed, old records reviewed Mode of arrival: ambulatory Limitations: no limitations <Ferdinand Lai - Last Filed: 12/08/22 05:40> <Fernando Dhillon - Last Filed: 12/08/22 16:13> - General Chief complaint: Abdominal Pain Stated complaint: Abd pain Time Seen by Provider: 12/08/22 03:43 - History of Present Illness Initial comments: 87-year-old female presents for evaluation of abdominal pain nausea vomiting. Patient's symptoms have been present for the past 24-48 hours but had worsened this evening. She had multiple episodes of vomiting. She states she had a normal bowel movement yesterday. No diarrhea. No fever. No chest pain. No difficulty breathing. She states she is on an antibiotic for urinary tract infection and believes this may be the cause of her symptoms. (Ferdinand Lai) - Related Data Home Medications Medication Instructions Recorded Confirmed Glimepiride [Amaryl] 2 mg PO PC-BRKFST 12/25/17 12/08/22 Levothyroxine Sodium [Synthroid] 75 mcg PO DAILY 12/25/17 12/08/22 Potassium Chloride ER [K-Dur 20] 20 meq PO BID 12/25/17 12/08/22 metFORMIN HCL [Glucophage] 500 mg PO PC-SUPPER 12/25/17 12/08/22 Atenolol/Chlorthalidone 1 tab PO PC-LUNCH 12/08/22 12/08/22 [Atenolol/Chlorthalidone 50-25] Atorvastatin [Lipitor] 40 mg PO HS 12/08/22 12/08/22 Cefuroxime [Ceftin] 250 mg PO BID 12/08/22 12/08/22 lisinopriL [Zestril] 2.5 mg PO PC-LUNCH 12/08/22 12/08/22 Previous Rx's Medication Instructions Recorded Aspirin 325 mg PO DAILY tab 12/26/17 Allergies Allergy/AdvReac Type Severity Reaction Status Date / Time No Known Allergies Allergy Verified 12/08/22 11:04 Review of Systems ROS Other: All systems not noted in ROS Statement are negative. <Ferdinand Lai - Last Filed: 12/08/22 05:40> ROS Other: All systems not noted in ROS Statement are negative. <Fernando Dhillon - Last Filed: 12/08/22 16:13> ROS Statement: Those systems with pertinent positive or pertinent negative responses have been documented in the HPI. Past Medical History Past Medical History: CVA/TIA, Diabetes Mellitus, Hyperlipidemia, Hypertension, Thyroid Disorder History of Any Multi-Drug Resistant Organisms: None Reported Past Surgical History: No Surgical Hx Reported Past Anesthesia/Blood Transfusion Reactions: No Reported Reaction Past Psychological History: No Psychological Hx Reported Smoking Status: Never smoker Past Alcohol Use History: None Reported Past Drug Use History: None Reported - Past Family History Mother Family Medical History: Congestive Heart Failure (CHF), CVA/TIA Additional Family Medical History / Comment(s): Mother had history of hypertensi on, diabetes, TIAs. No cancer history. Father Family Medical History: Myocardial Infarction (VT) Additional Family Medical History / Comment(s): Mother from a myocardial infarction. Brother(s) Additional Family Medical History / Comment(s): Patient had 3 brothers. One from a myocardial infraction with history of obstructive sleep apnea. One from some type of aneurysm and one from alcohol abuse. Sister(s) Additional Family Medical History / Comment(s): She has 2 sisters and one has coronary artery disease status post CABG. Son(s) Additional Family Medical History / Comment(s): Patient has one son with diabetes mellitus type 2. Patient has one daughter with no major medical problems. <Ferdinand Lai - Last Filed: 12/08/22 05:40> General Exam Limitations: no limitations General appearance: alert, in no apparent distress Head exam: Present: atraumatic, normocephalic Eye exam: Present: normal appearance, PERRL ENT exam: Present: normal exam Neck exam: Present: normal inspection. Absent: tenderness, meningismus Respiratory exam: Present: normal lung sounds bilaterally. Absent: respiratory distress, wheezes Cardiovascular Exam: Present: regular rate, normal rhythm GI/Abdominal exam: Present: soft, tenderness (Epigastric). Absent: distended Extremities exam: Present: normal inspection, normal capillary refill Neurological exam: Present: alert, oriented X3, CN II-XII intact. Absent: motor sensory deficit Psychiatric exam: Present: normal affect, normal mood Skin exam: Present: warm, dry <Ferdinand Lai - Last Filed: 12/08/22 05:40> Course <Ferdinand Lai - Last Filed: 12/08/22 05:40> Vital Signs 12/08/22 12/08/22 12/08/22 03:37 05:33 06:24 Temperature 98 F Pulse Rate 76 70 81 Respiratory 18 16 16 Rate Blood Pressure 130/60 131/66 97/54 O2 Sat by Pulse 98 97 97 Oximetry 12/08/22 12/08/22 12/08/22 09:00 09:42 12:54 Temperature Pulse Rate 112 H 112 H 102 H Respiratory 24 24 18 Rate Blood Pressure 85/60 133/76 140/72 O2 Sat by Pulse 97 98 99 Oximetry 12/08/22 13:21 Temperature 98.1 F Pulse Rate 118 H Respiratory 20 Rate Blood Pressure 137/90 O2 Sat by Pulse 100 Oximetry - Reevaluation(s) Reevaluation #1: 12/08/22 0700 Patient care signed out to Dr. Dhillon at shift change awaiting ultrasound and reevaluation. (Ferdinand Lai) Medical Decision Making - Lab Data Result diagrams: 12/08/22 04:49 12/08/22 04:49 <Ferdinand Lai - Last Filed: 12/08/22 05:40> - Lab Data Result diagrams: 12/08/22 09:25 12/08/22 10:25 - EKG Data -: EKG Interpreted by Me <Fernando Dhillon - Last Filed: 12/08/22 16:13> - Medical Decision Making Was pt. sent in by a medical professional or institution (, PA, METER READER CHIEF, urgent care, hospital, or care home...) When possible be specific @ -[No] Did you speak to anyone other than the patient for history (EMS, parent, family, police, friend...)? What history was obtained from this source @ -[No] Did you review nursing and triage notes (agree or disagree)? Why? @ -[I reviewed and agree with nursing and triage notes] Were old charts reviewed (outside hosp., previous admission, EMS record, old EKG, old radiological studies, urgent care reports/EKG's, care home records)? Report findings @ -[No old charts were reviewed] Differential Diagnosis (chest pain, altered mental status, abdominal pain women, abdominal pain men, vaginal bleeding, weakness, fever, dyspnea, syncope, headache, dizziness, GI bleed, back pain, seizure, CVA, palpatations, mental health, musculoskeletal)? @ Differential Abdominal Pain Women: Appendicitis, Cholecystitis, diverticulosis, ischemic bowel, pancreatitis, hepatitis, UTI, gastroenteritis, AAA, incarcerated hernia, bowel obstruction, constipation, inflammatory bowel, hepatitis, peptic ulcer disease, splenic infarction, perforated viscus, kidney stone, this is not meant to be an all- inclusive list EKG interpreted by me (3pts min.). @ -Sinus rhythm with ventricular hypertrophy rate of 75, CA interval 178, QRS duration 84, QTC 412, no ST segment elevation. X-rays interpreted by me (1pt min.). @ -[None done] CT interpreted by me (1pt min.). @ -[None done] U/S interpreted by me (1pt. min.). @Ultrasound has been ordered results and interpretation pending What testing was considered but not performed or refused? (CT, X-rays, U/S, labs)? Why? @ -[None] What meds were considered but not given or refused? Why? @ -[None] Did you discuss the management of the patient with other professionals (professionals i.e. , PA, METER READER CHIEF, lab, RT, psych nurse, social work professor, electromechanisms design drafter, teacher, zoology technical officer, medical case worker)? Give summary @ -[No] Was smoking cessation discussed for >3mins.? @ -[No] Was critical care preformed (if so, how long)? @ -[No] Were there social determinants of health that impacted care today? How? (Homelessness, low income, unemployed, alcoholism, drug addiction, transportation, low edu. Level, literacy, decrease access to med. care, half-way, rehab)? @ -[No] Was there de-escalation of care discussed even if they declined (Discuss DNR or withdrawal of care, Hospice)? DNR status @ -[No] What co-morbidities impacted this encounter? (DM, HTN, Smoking, COPD, CAD, Cancer, CVA, ARF, Chemo, Hep., AIDS, mental health diagnosis, sleep apnea, morbid obesity)? @Diabetes Was patient admitted / discharged? Hospital course, mention meds given and route, prescriptions, significant lab abnormalities, going to OR and other pertinent info. @87-year-old female who had presented for abdominal pain in the epigastrium with associated vomiting. She has mild transaminitis and elevated alkaline phosphatase. Ultrasound of the gallbladder is pending. Patient care signed out at shift change. (Ferdinand Lai) Was critical care preformed (if so, how long)? @ -yes, 36 min Was patient admitted / discharged? Hospital course, mention meds given and route, prescriptions, significant lab abnormalities, going to OR and other pertinent info. @ -Patient was signed out to me pending results of ultrasound. Patient has been having epigastric and abdominal discomfort for the last 4 days since she started taking an antibiotic for UTI. Endorses nausea. Endorses dry heaving. Denies constipation. Denies any blood per rectum. Denies any urinary complaints at this time. Denies any fevers. Has not expenses. In the past. Does have a history of diabetes. Patient's labs were remarkable for mild lactic acidosis of 2.8 likely secondary to dehydration. Patient also has mildly brandy vated LFTs and alk phos. Troponin is undetectable. EKG unremarkable. Slight leukocytosis of 11.6 which could be reactive. Gallbladder ultrasound is interpreted by myself reveals a gallstone but does not appear to be expressing acute cholecystitis. Patient also has what appears to be a right renal calculus that is nonobstructing. Radiology also notes fibrosis of the liver. Radiology recommended CT imaging if pain is persistent his pain is more in the epigastric region. I discussed the results with the patient. She still having some abdominal discomfort and we discussed CT imaging which she agreed to. We'll readminister medications for her discomfort including premeds as she does have a history of ALLERGY to shellfish which does not appear to be anaphylactic in nature. She will receive additional IV fluids. Patient was in agreement this plan. Vital signs remained within acceptable limits. She states she feels improved but not 100% back to normal. I was notified by nursing staff the patient had sudden onset tachycardia after receiving IV Benadryl, Reglan. Did not receive any other medication. Patient was given IV fluids. EKG appeared to show supraventricular tachycardia. Patient received an initial dose of 6 known grams of adenosine which did slow down her rate but she went back and SVT. Patient received a second dose of 12 mg of adenosine. SVT terminated. Patient's sinus tachycardia at this time. Vital signs normalized. At this time, patient is resting comfortably. We did discuss administering the rest of the premedication for CT imaging which she declined at this time and therefore we will obtain a CT abdomen and pelvis without contrast. She will likely be admitted afterwards. She was in agreement with this plan. Patient's CT imaging is interpreted by myself after delay due to SVT episode revealed possible concern for internal hernia and closed loop obstruction with some reactive ascitic fluid. Recommend surgical evaluation. Patient also has a large hiatal hernia which is chronic for the patient no other obvious findings. I discussed results with the patient's PCP, Dr. Wallace. I discussed with the patient initially, and she was adamant she did not want any form of surgery. I did discuss this with Dr. Wallace comes the patient also wishes to remain full code which I believe is reasonable she is a relatively healthy 87-year-old. P linda was in Percocet on vancomycin and Zosyn and we will continue fluid hydration. After discussion patient's daughter as well as the patient and Dr. Wallace over the phone, decision was made to transfer the patient. They prefer transfer circumflex for surgical evaluation at another facility if that is the case. They're requesting [facility] transfer. Transfer was initiated at 1120. I spoke with the transfer line and patient was accepted at approximately 12:05 PM. Accepting ER physician is Dr. Lanza. Accepting surgeon is Dr. Lawrence. Patient did go into another episode of SVT when she got up to use the restroom but it resolved by the time I evaluated the patient. Undiagnosed new problem with uncertain prognosis? @ -Yes Drug Therapy requiring intensive monitoring for toxicity (Heparin, Nitro, Insulin, Cardizem)? @ -No Were any procedures done? @ -No Diagnosis/symptom? @ -Abdominal pain, concern for possible internal hernia , dehydration Acute, or Chronic, or Acute on Chronic? @ -Acute Uncomplicated (without systemic symptoms) or Complicated (systemic symptoms)? @ -Complicated Side effects of treatment? @ -none Exacerbation, Progression, or Severe Exacerbation] @ -no Poses a threat to life or bodily function? @ -yes Diagnosis/symptom? @ -SVT Acute, or Chronic, or Acute on Chronic? @ -Acute Uncomplicated (without systemic symptoms) or Complicated (systemic symptoms)? @ -Complicated Side effects of treatment? @ -none Exacerbation, Progression, or Severe Exacerbation] @ -no Poses a threat to life or bodily function? @ -Yes (Fernando Dhillon) - Lab Data Lab Results 12/08/22 12/08/22 12/08/22 Range/Units 04:49 04:49 04:49 WBC 11.6 H (3.8-10.6) k/uL RBC 4.76 (3.80-5.40) m/uL Hgb 13.4 (11.4-16.0) gm/dL Hct 45.0 (34.0-46.0) % MCV 94.6 (80.0-100.0) fL MCH 28.2 (25.0-35.0) pg MCHC 29.8 L (31.0-37.0) g/dL RDW 12.9 (11.5-15.5) % Plt Count 218 (150-450) k/uL MPV 8.4 Neutrophils % 90 % Lymphocytes % 5 % Monocytes % 3 % Eosinophils % 1 % Basophils % 0 % Neutrophils # 10.5 H (1.3-7.7) k/uL Lymphocytes # 0.6 L (1.0-4.8) k/uL Monocytes # 0.4 (0-1.0) k/uL Eosinophils # 0.1 (0-0.7) k/uL Basophils # 0.0 (0-0.2) k/uL Hypochromasia PT 10.2 (9.0-12.0) sec INR 1.0 (<1.2) APTT 20.1 L (22.0-30.0) sec Sodium 137 (137-145) mmol/L Potassium 4.4 (3.5-5.1) mmol/L Chloride 107 (98-107) mmol/L Carbon Dioxide 19 L (22-30) mmol/L Anion Gap 11 mmol/L BUN 15 (7-17) mg/dL Creatinine 0.76 (0.52-1.04) mg/dL Est GFR (CKD-EPI)AfAm 83 (>60 ml/min/1.73 sqM) Est GFR (CKD-EPI)NonAf 72 (>60 ml/min/1.73 sqM) Glucose 299 H (74-99) mg/dL Lactic Ac Sepsis Rflx Plasma Lactic Acid Roderick (0.7-2.0) mmol/L Calcium 9.6 (8.4-10.2) mg/dL Magnesium (1.6-2.3) mg/dL Total Bilirubin 1.3 (0.2-1.3) mg/dL AST 76 H (14-36) U/L ALT 186 H (4-34) U/L Alkaline Phosphatase 163 H (38-126) U/L Troponin I (0.000-0.034) ng/mL Total Protein 7.2 (6.3-8.2) g/dL Albumin 3.7 (3.5-5.0) g/dL Amylase 70 (30-110) U/L Lipase 147 (23-300) U/L Urine Color Urine Appearance (Clear) Urine pH (5.0-8.0) Ur Specific [place] (1.001-1.035) Urine Protein (Negative) Urine Glucose (UA) (Negative) Urine Ketones (Negative) Urine Blood (Negative) Urine Nitrite (Negative) Urine Bilirubin (Negative) Urine Urobilinogen (<2.0) mg/dL Ur Leukocyte Esterase (Negative) Urine WBC (0-5) /hpf Ur Squamous Epith Cells (0-4) /hpf Hyaline Casts (0-2) /lpf Urine Mucus (None) /hpf 12/08/22 12/08/22 12/08/22 Range/Units 04:49 04:49 05:18 WBC (3.8-10.6) k/uL RBC (3.80-5.40) m/uL Hgb (11.4-16.0) gm/dL Hct (34.0-46.0) % MCV (80.0-100.0) fL MCH (25.0-35.0) pg MCHC (31.0-37.0) g/dL RDW (11.5-15.5) % Plt Count (150-450) k/uL MPV Neutrophils % % Lymphocytes % % Monocytes % % Eosinophils % % Basophils % % Neutrophils # (1.3-7.7) k/uL Lymphocytes # (1.0-4.8) k/uL Monocytes # (0-1.0) k/uL Eosinophils # (0-0.7) k/uL Basophils # (0-0.2) k/uL Hypochromasia PT (9.0-12.0) sec INR (<1.2) APTT (22.0-30.0) sec Sodium (137-145) mmol/L Potassium (3.5-5.1) mmol/L Chloride (98-107) mmol/L Carbon Dioxide (22-30) mmol/L Anion Gap mmol/L BUN (7-17) mg/dL Creatinine (0.52-1.04) mg/dL Est GFR (CKD-EPI)AfAm (>60 ml/min/1.73 sqM) Est GFR (CKD-EPI)NonAf (>60 ml/min/1.73 sqM) Glucose (74-99) mg/dL Lactic Ac Sepsis Rflx Y Plasma Lactic Acid Roderick 2.8 H* (0.7-2.0) mmol/L Calcium (8.4-10.2) mg/dL Magnesium (1.6-2.3) mg/dL Total Bilirubin (0.2-1.3) mg/dL AST (14-36) U/L ALT (4-34) U/L Alkaline Phosphatase (38-126) U/L Troponin I <0.012 (0.000-0.034) ng/mL Total Protein (6.3-8.2) g/dL Albumin (3.5-5.0) g/dL Amylase (30-110) U/L Lipase (23-300) U/L Urine Color Urine Appearance (Clear) Urine pH (5.0-8.0) Ur Specific [place] (1.001-1.035) Urine Protein (Negative) Urine Glucose (UA) (Negative) Urine Ketones (Negative) Urine Blood (Negative) Urine Nitrite (Negative) Urine Bilirubin (Negative) Urine Urobilinogen (<2.0) mg/dL Ur Leukocyte Esterase (Negative) Urine WBC (0-5) /hpf Ur Squamous Epith Cells (0-4) /hpf Hyaline Casts (0-2) /lpf Urine Mucus (None) /hpf 12/08/22 12/08/22 12/08/22 Range/Units 09:25 09:25 10:25 WBC 14.2 H (3.8-10.6) k/uL RBC 4.89 (3.80-5.40) m/uL Hgb 15.4 (11.4-16.0) gm/dL Hct 47.7 H (34.0-46.0) % MCV 97.5 (80.0-100.0) fL MCH 31.4 (25.0-35.0) pg MCHC 32.2 (31.0-37.0) g/dL RDW 13.3 (11.5-15.5) % Plt Count 227 (150-450) k/uL MPV 8.3 Neutrophils % 93 % Lymphocytes % 3 % Monocytes % 4 % Eosinophils % 0 % Basophils % 0 % Neutrophils # 13.2 H (1.3-7.7) k/uL Lymphocytes # 0.4 L (1.0-4.8) k/uL Monocytes # 0.5 (0-1.0) k/uL Eosinophils # 0.0 (0-0.7) k/uL Basophils # 0.0 (0-0.2) k/uL Hypochromasia Slight PT (9.0-12.0) sec INR (<1.2) APTT (22.0-30.0) sec Sodium 139 140 (137-145) mmol/L Potassium 5.5 H 4.9 (3.5-5.1) mmol/L Chloride 113 H 114 H (98-107) mmol/L Carbon Dioxide 17 L 12 L (22-30) mmol/L Anion Gap 9 14 mmol/L BUN 18 H 18 H (7-17) mg/dL Creatinine 1.00 0.94 (0.52-1.04) mg/dL Est GFR (CKD-EPI)AfAm 59 64 (>60 ml/min/1.73 sqM) Est GFR (CKD-EPI)NonAf 52 55 (>60 ml/min/1.73 sqM) Glucose 323 H 305 H (74-99) mg/dL Lactic Ac Sepsis Rflx Plasma Lactic Acid Roderick (0.7-2.0) mmol/L Calcium 8.0 L 8.0 L (8.4-10.2) mg/dL Magnesium 1.7 (1.6-2.3) mg/dL Total Bilirubin (0.2-1.3) mg/dL AST (14-36) U/L ALT (4-34) U/L Alkaline Phosphatase (38-126) U/L Troponin I (0.000-0.034) ng/mL Total Protein (6.3-8.2) g/dL Albumin (3.5-5.0) g/dL Amylase (30-110) U/L Lipase (23-300) U/L Urine Color Urine Appearance (Clear) Urine pH (5.0-8.0) Ur Specific [place] (1.001-1.035) Urine Protein (Negative) Urine Glucose (UA) (Negative) Urine Ketones (Negative) Urine Blood (Negative) Urine Nitrite (Negative) Urine Bilirubin (Negative) Urine Urobilinogen (<2.0) mg/dL Ur Leukocyte Esterase (Negative) Urine WBC (0-5) /hpf Ur Squamous Epith Cells (0-4) /hpf Hyaline Casts (0-2) /lpf Urine Mucus (None) /hpf 12/08/22 Range/Units Unknown WBC (3.8-10.6) k/uL RBC (3.80-5.40) m/uL Hgb (11.4-16.0) gm/dL Hct (34.0-46.0) % MCV (80.0-100.0) fL MCH (25.0-35.0) pg MCHC (31.0-37.0) g/dL RDW (11.5-15.5) % Plt Count (150-450) k/uL MPV Neutrophils % % Lymphocytes % % Monocytes % % Eosinophils % % Basophils % % Neutrophils # (1.3-7.7) k/uL Lymphocytes # (1.0-4.8) k/uL Monocytes # (0-1.0) k/uL Eosinophils # (0-0.7) k/uL Basophils # (0-0.2) k/uL Hypochromasia PT (9.0-12.0) sec INR (<1.2) APTT (22.0-30.0) sec Sodium (137-145) mmol/L Potassium (3.5-5.1) mmol/L Chloride (98-107) mmol/L Carbon Dioxide (22-30) mmol/L Anion Gap mmol/L BUN (7-17) mg/dL Creatinine (0.52-1.04) mg/dL Est GFR (CKD-EPI)AfAm (>60 ml/min/1.73 sqM) Est GFR (CKD-EPI)NonAf (>60 ml/min/1.73 sqM) Glucose (74-99) mg/dL Lactic Ac Sepsis Rflx Plasma Lactic Acid Roderick (0.7-2.0) mmol/L Calcium (8.4-10.2) mg/dL Magnesium (1.6-2.3) mg/dL Total Bilirubin (0.2-1.3) mg/dL AST (14-36) U/L ALT (4-34) U/L Alkaline Phosphatase (38-126) U/L Troponin I (0.000-0.034) ng/mL Total Protein (6.3-8.2) g/dL Albumin (3.5-5.0) g/dL Amylase (30-110) U/L Lipase (23-300) U/L Urine Color Light Red Urine Appearance Cloudy H (Clear) Urine pH 5.5 (5.0-8.0) Ur Specific [place] 1.022 (1.001-1.035) Urine Protein 2+ H (Negative) Urine Glucose (UA) Negative (Negative) Urine Ketones 1+ H (Negative) Urine Blood Negative (Negative) Urine Nitrite Negative (Negative) Urine Bilirubin Negative (Negative) Urine Urobilinogen 2.0 (<2.0) mg/dL Ur Leukocyte Esterase Moderate H (Negative) Urine WBC 14 H (0-5) /hpf Ur Squamous Epith Cells 3 (0-4) /hpf Hyaline Casts 4 H (0-2) /lpf Urine Mucus Many H (None) /hpf - EKG Data EKG Comments: 12-lead Electrocardiogram Interpretation Note EKG was reviewed and interpreted by myself. 12-lead ECG performed at 0858 is interpreted by me as revealing supraventricular tachycardia at a rate of 160 beats per minute. Colon is normal. QRS duration is 84 ms, QTc is 360 ms.. There were no ST or T wave abnormalities to suggest myocardial ischemia or injury. R wave progression across the precordium was satisfactory. By my interpretation this EKG is non-diagnostic for acute ischemia. Peaked T waves seen on previous EKGs. 12-lead Electrocardiogram Interpretation Note EKG was reviewed and interpreted by myself. 12-lead ECG performed at 0914 is interpreted by me as revealing sinus tachycardia at a rate of 143 beats per minute. Colon is normal. CA interval is 134 ms, QRS duration is 80 ms, QTc is 360 ms.. There were no ST or T wave abnormalities to suggest myocardial ischemia or injury. R wave progression across the precordium was satisfactory. By my interpretation this EKG is non-diagnostic for acute ischemia. Peaked T waves seen on previous EKG. (Fernando Dhillon) Critical Care Time Critical Care Time: Yes Total Critical Care Time: 36 <Fernando Dhillon - Last Filed: 12/08/22 16:13> Disposition <Ferdinand Lai - Last Filed: 12/08/22 05:40> Time of Disposition: 11:20 - Out of Hospital Transfer - Req. Specs Out of Hospital Transfer - Requested Specifics: Other Emergency Center (Transfered to [facility] who accepted the transfer per patient request) <Fernando Dhillon - Last Filed: 12/08/22 16:13> Clinical Impression: Dehydration, SVT (supraventricular tachycardia), Internal hernia, Abdominal pain Disposition: OTHER INSTITUTION NOT DEFINED Condition: Serious Referrals: Yohana Wallace MD [Primary Care Provider] - 1-2 days
[2022-12-08 05:03] LABS: Basophils % (A) 0 %; Eosinophils # (A) 0.1 k/uL (0-0.7); Eosinophils % (A) 1 %; HGB 13.4 gm/dL (11.4-16.0); Lymphocytes # (A) 0.6 k/uL (1.0-4.8); Lymphocytes % (A) 5 %; MCH 28.2 pg (25.0-35.0); MCHC 29.8 g/dL (31.0-37.0); MCV 94.6 fL (80.0-100.0); Mean Platelet Volume 8.4; Monocytes # (A) 0.4 k/uL (0-1.0); Monocytes % (A) 3 %; Neutrophils # (A) 10.5 k/uL (1.3-7.7); Neutrophils % (A) 90 %; Platelet Count 218 k/uL (150-450); RBC 4.76 m/uL (3.80-5.40); RDW 12.9 % (11.5-15.5); WBC 11.6 k/uL (3.8-10.6)
[2022-12-08 05:16] LABS: ALT 186 U/L (4-34); AST 76 U/L (14-36); African American GFR (CKD) 83 (>60 ml/min/1.73 sqM); Albumin 3.7 g/dL (3.5-5.0); Alkaline Phosphatase 163 U/L (38-126); Amylase 70 U/L (30-110); Anion Gap 11 mmol/L; Blood Urea Nitrogen 15 mg/dL (7-17); Calcium 9.6 mg/dL (8.4-10.2); Carbon Dioxide 19 mmol/L (22-30); Chloride 107 mmol/L (98-107); Glucose 299 mg/dL (74-99); Lipase 147 U/L (23-300); Non-African American GFR(CKD) 72 (>60 ml/min/1.73 sqM); Potassium 4.4 mmol/L (3.5-5.1); Sodium 137 mmol/L (137-145); Total Bilirubin 1.3 mg/dL (0.2-1.3); Total Protein 7.2 g/dL (6.3-8.2)
[2022-12-08 06:09] LABS: Partial Thromboplastin Time 20.1 sec (22.0-30.0); Prothrombin Time 10.2 sec (9.0-12.0)
[2022-12-08] MEDS ORDERED: SODIUM CHLORIDE 0.9% 500 ML 500 ML IV ONE (06:31)
--- NOTE | 2022-12-08 07:52 | US ---
EXAMINATION TYPE: US gallbladder DATE OF EXAM: 12/08/2022 COMPARISON: NONE CLINICAL INDICATION: Female, 87 years old with history of epigastric pain; Epigastric pain x 5 days. TECHNIQUE: Multiple sonographic images of the right upper quadrant are obtained. FINDINGS: EXAM MEASUREMENTS: Liver Length: 14.7 cm Gallbladder Wall: 0.15 cm CBD: 0.44 cm Right Kidney: 10.2 x 4.7 x 4.2 cm SKIP PIT WORKER NOTES: Limited due to overlying bowel gas. Pancreas: Limited visibility. Liver: Appears very coarse with increased echogenicity. Gallbladder: Hyperechoic area seen within: 2.0 x 0.8 x 0.5 cm. Evidence for sonographic Rob's sign: Patient feels great amount of pain in midline epigastric r egion. CBD: Portions seen appear wnl Right Kidney: Hyperechoic focus seen lower pole: 0.5 x 0.4 x 0.4 cm. Ascites seen in the RUQ. IMPRESSION: 1. Gallstone in the gallbladder lumen suggested versus hyperechoic sludge. The gallbladder is somewh at contracted. Patient's pain is more in the midline of the epigastrium. Consider CT imaging with IV and oral contrast. 2. Nonobstructing right renal calculus. 3. Coarsened liver echotexture correlate for fibrosis.
[2022-12-08] MEDS ORDERED: METOCLOPRAMIDE 5 MG/ML 2 ML VIAL IVP STA (08:25)
[2022-12-08] MEDS ORDERED: methylPREDNISolone SOD SUCCI 125 MG/2 ML VIAL IV STA (08:25)
[2022-12-08] MEDS ORDERED: diphenhydrAMINE 50 MG/ML 1 ML VIAL IVP STA (08:25)
[2022-12-08] MEDS: FAMOTIDINE 20 MG/2 ML VIAL IV STA ×2 (08:52→09:42)
[2022-12-08] MEDS ORDERED: ADENOSINE 3 MG/ML 2 ML VIAL IVP STA ×2 (09:08→09:11)
[2022-12-08 09:29] LABS: Basophils % (A) 0 %; Eosinophils % (A) 0 %; HCT 47.7 % (34.0-46.0); HGB 15.4 gm/dL (11.4-16.0); Hypochromasia Slight; Lymphocytes # (A) 0.4 k/uL (1.0-4.8); Lymphocytes % (A) 3 %; MCH 31.4 pg (25.0-35.0); MCHC 32.2 g/dL (31.0-37.0); MCV 97.5 fL (80.0-100.0); Mean Platelet Volume 8.3; Monocytes # (A) 0.5 k/uL (0-1.0); Monocytes % (A) 4 %; Neutrophils # (A) 13.2 k/uL (1.3-7.7); Neutrophils % (A) 93 %; Platelet Count 227 k/uL (150-450); RBC 4.89 m/uL (3.80-5.40); RDW 13.3 % (11.5-15.5); WBC 14.2 k/uL (3.8-10.6)
[2022-12-08 10:03] LABS: African American GFR (CKD) 59 (>60 ml/min/1.73 sqM); Anion Gap 9 mmol/L; Blood Urea Nitrogen 18 mg/dL (7-17); Carbon Dioxide 17 mmol/L (22-30); Chloride 113 mmol/L (98-107); Glucose 323 mg/dL (74-99); Magnesium 1.7 mg/dL (1.6-2.3); Non-African American GFR(CKD) 52 (>60 ml/min/1.73 sqM); Potassium 5.5 mmol/L (3.5-5.1); Sodium 139 mmol/L (137-145)
--- NOTE | 2022-12-08 10:51 | CT ---
EXAMINATION TYPE: CT abdomen pelvis wo con DATE OF EXAM: 12/08/2022 COMPARISON: None HISTORY: 87-year-old female Abdominal pain of unknown etiology, Right sided upper quadrant pain CT DLP: 378.8 mGycm. Automated exposure control for dose reduction was used. TECHNIQUE: Contiguous axial scanning of the abdomen and pelvis without IV contrast. Coronal and sagit lima reconstructions performed. FINDINGS: There is a very large hiatal hernia involving the entire stomach in the lower chest. Some of the stanford sverse colon and splenic flexure of the colon is also included in the hernia. Somewhat more focal area of fluid posterior to the herniated stomach at the right base measuring 4.6 x 3.7 cm. Probable herniated ascites fluid. Attention on follow-up. Noncontrast appearance of the liver, adrenal glands, spleen, and pancreas show no gross abnormality. There is a 1.3 cm diverticulum of the second portion of the duodenum projecting into the pancreatic h ead region. Small layering gallstones. No abnormal gallbladder distention. Punctate 3 mm nonobstructive right renal calculus. A few left-sided renal cysts measuring up to 1.9 c m. Moderate to severe discogenic calcifications abdominal aorta and iliac arteries. Mild to moderate upper abdominal ascites. There are thickened and distended small bowel loops with air-fluid levels and moderate to severe mese nteric edema in the mid and lower abdomen and pelvis. These loops measure up tor 2.9 cm. Possible priyanka selena of the mesentery coronal image 36 and superior displacement of the cecum. Normal appendix. Mild stool burden. Colon relatively nondistended. No definite pericolonic inflammato ry change. Moderate to large pelvic ascites. Bladder partially distended. Uterus anteverted but retroflexed. Num erous pelvic phleboliths. Small bilateral ovaries. No obvious pelvic lymphadenopathy. Pelvic floor re laxation. Bones: Degenerative hypertrophic facet arthropathy. Trace grade 1 anterolisthesis L4-L5. Moderate deg enerative disc disease throughout. IMPRESSION: 1. Thickened and distended small bowel loops with air-fluid levels and moderate to severe mesenteric edema within the lower abdomen and pelvis. Loops are distended up to 2.9 cm. Some proximal small bow el loops are nondistended. Given beaked appearance to the central mesentery (coronal image 36), unabl e to exclude some type of mesenteric torquing, internal hernia, or closed loop obstruction. Moderate ascites fluid is likely reactive. Given the degree of bowel wall thickening, ascites, and mesenteric edema considered surgical evaluation. 2. Large hiatal hernia involving the entire stomach in the lower chest. Some of the nonobstructed tr ansverse colon also extends into the hernia. 3. A more focal area of fluid posterior to the herniated stomach at the right base measuring 4.6 x 3 .7 cm. Probably ascites fluid located within the hernia sac. If right upper quadrant pain persists, r ecommend short interval follow-up to ensure gradual resolution of the ascites and exclude a fluid col lection. 4. Cholelithiasis, a couple punctate nonobstructive right renal calculi, and colonic diverticulosis.
[2022-12-08 10:58] LABS: African American GFR (CKD) 64 (>60 ml/min/1.73 sqM); Anion Gap 14 mmol/L; Blood Urea Nitrogen 18 mg/dL (7-17); Carbon Dioxide 12 mmol/L (22-30); Chloride 114 mmol/L (98-107); Glucose 305 mg/dL (74-99); Non-African American GFR(CKD) 55 (>60 ml/min/1.73 sqM); Potassium 4.9 mmol/L (3.5-5.1); Sodium 140 mmol/L (137-145)
[2022-12-08] MEDS ORDERED: SODIUM CHLORIDE 0.9% 1,000 ML IV STA (11:14)
[2022-12-08] MEDS ORDERED: PIPERACILLIN-TAZOBACTAM 3.375 GM in SODIUM CHLORIDE 0.9% 100 ML IVPB STA (11:16)
[2022-12-08] MEDS ORDERED: VANCOMYCIN IV PER PHARMACY 1 EACH MISC MISCELLANE PRN (11:23)
[2022-12-08] MEDS ORDERED: VANCOMYCIN 1,000 MG in SODIUM CHLORIDE 0.9% 250 ML IVPB STA (11:27)
[2022-12-08 12:35] LABS: Appearance,Urine Cloudy (Clear); Bilirubin,Urine Negative (Negative); Blood,Urine Negative (Negative); Color,Urine Light Red; Glucose,Urine (UA) Negative (Negative); Hyaline Casts,Urine 4 /lpf (0-2); Ketones,Urine 1+ (Negative); Leukocyte Esterase,Urine Moderate (Negative); Mucus,Urine Many /hpf; Nitrite,Urine Negative (Negative); PH, Urine 5.5 (5.0-8.0); Protein,Urine 2+ (Negative); Specific Gravity,Urine 1.022 (1.001-1.035); Squamous Epithelial Cell,Urine 3 /hpf (0-4); WBC,Urine 14 /hpf (0-5)
[2022-12-08 13:23] VITALS: BP 137/90; PULSE 118; RESP 20; TEMP 98.1
[2022-12-08] MEDS ORDERED: PIPERACILLIN-TAZOBACTAM 3.375 GM in SODIUM CHLORIDE 0.9% 100 ML IVPB SCH (20:00)
== END 2022-12-08 13:23 | disposition other institution (70) ==
LOC: EC 03:36
DX: E86.0 Dehydration (principal); I47.1 Supraventricular tachycardia; K46.9 Unspecified abdominal hernia without obstruction or gangrene; K57.30 Diverticulosis of large intestine without perforation or abscess without bleeding; N20.0 Calculus of kidney; R18.8 Other ascites; K80.20 Calculus of gallbladder without cholecystitis without obstruction; E11.9 Type 2 diabetes mellitus without complications; E78.5 Hyperlipidemia, unspecified; I10 Essential (primary) hypertension; E07.9 Disorder of thyroid, unspecified; Z79.890 Hormone replacement therapy; Z79.899 Other long term (current) drug therapy; Z79.84 Long term (current) use of oral hypoglycemic drugs; Z86.73 Personal history of transient ischemic attack (TIA), and cerebral infarction without residual deficits
CPT/HCPCS: 36415; 93005; 80053; 80048; 82150; 83605; 83690; 83735; 84484; 85025; 85610; 85730; 81001; 87040; 76705; 74176; 99291; 96365; 96368; 96375 ×6; 96361 ×5; J2543; J3370; J1200; J2765; J2405; J0153; C9113; J1170

== ENCOUNTER 2023-04-18 09:15 | Emergency (ER) | payer MEDICARE, BC ==
--- NOTE | 2023-04-18 09:53 | ED ---
General Adult HPI - General Source: patient, RN notes reviewed Mode of arrival: ambulatory Limitations: no limitations <Torrey Lopez - Last Filed: 04/18/23 09:52> - General Source: patient, family, RN notes reviewed <Cydney Stroud - Last Filed: 04/18/23 11:20> - General Stated complaint: Fall Time Seen by Provider: 04/18/23 09:52 - History of Present Illness Initial comments: 88-year-old female presents emergency Department chief complaint of a fall on Tuesday. She states she went to stand up states that she fell forward she has a skin tear on her right forearm and complains of left ankle pain, swelling. She denies any head injury no loss conscious. (Torrey Lopez) Patient is a 8-year-old female presented ER with chief complaint of a fall. Patient states she was standing up from her recliner when she tripped and fell she states her left ankle E forwarded out. She states she heard a crack and pain. Patient denies any loss of consciousness or other injuries. Patient is on Eliquis. Patient states she is hobbling when she walks. (Cydney Stroud) - Related Data Home Medications Medication Instructions Recorded Confirmed Glimepiride [Amaryl] 2 mg PO PC-BRKFST 12/25/17 12/08/22 Levothyroxine Sodium [Synthroid] 75 mcg PO DAILY 12/25/17 12/08/22 Potassium Chloride ER [K-Dur 20] 20 meq PO BID 12/25/17 12/08/22 metFORMIN HCL [Glucophage] 500 mg PO PC-SUPPER 12/25/17 12/08/22 Atenolol/Chlorthalidone 1 tab PO PC-LUNCH 12/08/22 12/08/22 [Atenolol/Chlorthalidone 50-25] Atorvastatin [Lipitor] 40 mg PO HS 12/08/22 12/08/22 Cefuroxime [Ceftin] 250 mg PO BID 12/08/22 12/08/22 lisinopriL [Zestril] 2.5 mg PO PC-LUNCH 12/08/22 12/08/22 Previous Rx's Medication Instructions Recorded Aspirin 325 mg PO DAILY tab 12/26/17 Allergies Allergy/AdvReac Type Severity Reaction Status Date / Time No Known Allergies Allergy Verified 04/18/23 10:14 Review of Systems ROS Other: All systems not noted in ROS Statement are negative. <Torrey Lopez - Last Filed: 04/18/23 09:52> ROS Other: All systems not noted in ROS Statement are negative. <MaximusCydney - Last Filed: 04/18/23 11:20> ROS Statement: Those systems with pertinent positive or pertinent negative responses have been documented in the HPI. Past Medical History Past Medical History: CVA/TIA, Diabetes Mellitus, Hyperlipidemia, Hypertension, Thyroid Disorder History of Any Multi-Drug Resistant Organisms: None Reported Past Surgical History: No Surgical Hx Reported Past Anesthesia/Blood Transfusion Reactions: No Reported Reaction Past Psychological History: No Psychological Hx Reported Smoking Status: Never smoker Past Alcohol Use History: None Reported Past Drug Use History: None Reported - Past Family History Mother Family Medical History: Congestive Heart Failure (CHF), CVA/TIA Additional Family Medical History / Comment(s): Mother had history of hypertension, diabetes, TIAs. No cancer history. Father Family Medical History: Myocardial Infarction (NH) Additional Family Medical History / Comment(s): Mother from a myocardial infarction. Brother(s) Additional Family Medical History / Comment(s): Patient had 3 brothers. One from a myocardial infraction with history of obstructive sleep apnea. One from some type of aneurysm and one from alcohol abuse. Sister(s) Additional Family Medical History / Comment(s): She has 2 sisters and one has coronary artery disease status post CABG. Son(s) Additional Family Medical History / Comment(s): Patient has one son with diabetes mellitus type 2. Patient has one daughter with no major medical problems. <Torrey Lopez - Last Filed: 04/18/23 09:52> General Exam <Torrey Lopez - Last Filed: 04/18/23 09:52> General appearance: alert, in no apparent distress Head exam: Present: atraumatic, normocephalic, normal inspection Eye exam: Present: normal appearance, PERRL, EOMI. Absent: scleral icterus, conjunctival injection, periorbital swelling Pupils: Present: normal accommodation Respiratory exam: Present: normal lung sounds bilaterally. Absent: respiratory distress, wheezes, rales, rhonchi, stridor Cardiovascular Exam: Present: regular rate, normal rhythm, normal heart sounds. Absent: systolic murmur, diastolic murmur, rubs, gallop, clicks Extremities exam: Present: other (Left ankle edema over lateral malleolus. 2+ left dorsalis pedis pulse. Sensation is intact.) Neurological exam: Present: alert, oriented X3, CN II-XII intact Psychiatric exam: Present: normal affect, normal mood Skin exam: Present: warm, dry, intact, normal color. Absent: rash <Cydney Stroud - Last Filed: 04/18/23 11:20> - General Exam Comments Initial Comments: Visual Physical Exam Vital signs reviewed General: Well-appearing, nontoxic, no acute distress. Head: Normocephalic, atraumatic Eyes: PERRLA, EOMI ENT: Airway patent Chest: Nonlabored breathing Skin: No visual rash, normal skin tone Neuro: Alert and oriented 3 Musculoskeletal: No gross abnormalities (Torrey Lopez) Course Vital Signs 04/18/23 10:11 Temperature 98 F Pulse Rate 83 Respiratory 18 Rate Blood Pressure 120/53 O2 Sat by Pulse 99 Oximetry Medical Decision Making <Torrey Lopez - Last Filed: 04/18/23 09:52> - Radiology Data Radiology results: report reviewed, image reviewed <Cydney Stroud - Last Filed: 04/18/23 11:20> - Medical Decision Making I completed the quick note portion of this chart signed Torrey Lopez PA-C (Torrey Lopez) Was pt. sent in by a medical professional or institution (MARISOL Rosenthal, SOCIAL WORKER ASSISTANT, urgent care, hospital, or fdc...) When possible be specific @ -No Did you speak to anyone other than the patient for history (EMS, parent, family, police, friend...)? What history was obtained from this source @ -Family Did you review nursing and triage notes (agree or disagree)? Why? @ -I reviewed and agree with nursing and triage notes Were old charts reviewed (outside hosp., previous admission, EMS record, old EKG, old radiological studies, urgent care reports/EKG's, fdc records)? Report findings @ -No old charts were reviewed Differential Diagnosis (chest pain, altered mental status, abdominal pain women, abdominal pain men, vaginal bleeding, weakness, fever, dyspnea, syncope, headac he, dizziness, GI bleed, back pain, seizure, CVA, palpatations, mental health, musculoskeletal)? @ -Differential Musculoskeletal: Muscular strain, contusion, ligament sprain, fracture, arthritis, septic arthritis, bursitis, cellulitis, muscle spasm, nerve compression, DVT, arterial occlusion, herpes zoster, electrolyte abnormality, tumor.... This is not meant to be in all inclusive list EKG interpreted by me (3pts min.). @ -None X-rays interpreted by me (1pt min.). @ -Left ankle x-ray shows no acute fractures or dislocations. There is soft tissue edema noted. CT interpreted by me (1pt min.). @ -None done U/S interpreted by me (1pt. min.). @ -None done What testing was considered but not performed or refused? (CT, X-rays, U/S, labs)? Why? @ -None What meds were considered but not given or refused? Why? @ -None Did you discuss the management of the patient with other professionals (professionals i.e. , PA, SOCIAL WORKER ASSISTANT, lab, RT, psych nurse, social service technician, family lawyer, teacher, weapons electrical engineering officer, rn case manager)? Give summary @ -No Was smoking cessation discussed for >3mins.? @ -No Was critical care preformed (if so, how long)? @ -No Were there social determinants of health that impacted care today? How? (Homelessness, low income, unemployed, alcoholism, drug addiction, transportation, low edu. Level, literacy, decrease access to med. care, fci, rehab)? @ -No Was there de-escalation of care discussed even if they declined (Discuss DNR or withdrawal of care, Hospice)? DNR status @ -No What co-morbidities impacted this encounter? (DM, HTN, Smoking, COPD, CAD, Cancer, CVA, ARF, Chemo, Hep., AIDS, mental health diagnosis, sleep apnea, morbid obesity)? @ -None Was patient admitted / discharged? Hospital course, mention meds given and route, prescriptions, significant lab abnormalities, going to OR and other pertinent info. @ -Discharge. Patient is an 88-year-old female presented ER with chief complaint of left ankle injury. On examination there is edema and tenderness noticed to left lateral malleolus. Patient was neurovascularly intact. X-ray of left ankle shows no a cute fractures or dislocations. There is soft tissue edema noted. Patient will be placed in a air splint at discharge. I discussed with patient to take [id number] Tylenol and Motrin for pain control. I advised patient to rest, ice, use compression and elevate her ankle. I discussed with patient return parameters and to follow-up with orthopedics if symptoms persist. Patient expressed understanding and agreement with care plan. Patient be discharged in stable condition with follow-up to PCP and orthopedics. Undiagnosed new problem with uncertain prognosis? @ -No Drug Therapy requiring intensive monitoring for toxicity (Heparin, Nitro, Insulin, Cardizem)? @ -No Were any procedures done? @ -No Diagnosis/symptom? @ -Left ankle sprain Acute, or Chronic, or Acute on Chronic? @ -Acute Uncomplicated (without systemic symptoms) or Complicated (systemic symptoms)? @ -Uncomplicated Side effects of treatment? @ -No Exacerbation, Progression, or Severe Exacerbation? @ -No Poses a threat to life or bodily function? How? (Chest pain, [place], NH, pneumonia, PE, COPD, DKA, ARF, appy, cholecystitis, CVA, Diverticulitis, Homicidal, Suicidal, threat to staff... and all critical care pts) @ -No (Cydney Stroud) Disposition <Torrey Lopez - Last Filed: 04/18/23 09:52> Is patient prescribed a controlled substance at d/c from ED?: No Time of Disposition: 11:06 <Cydney Stroud - Last Filed: 04/18/23 11:20> Clinical Impression: Left ankle sprain Disposition: HOME SELF-CARE Condition: Stable Instructions (If sedation given, give patient instructions): Fall Prevention for Older Adults (ED) Additional Instructions: Please return to the Emergency Department if symptoms worsen or any other concerns. Please use [id number] Tylenol and Motrin for pain control. Please follow-up with orthopedics if symptoms persist. Referrals: Yohana Wallace MD [Primary Care Provider] - 1-2 days Cristina Goldsmith DO [Doctor of Osteopathic Medicine] - 1-2 days
[2023-04-18 10:26] VITALS: BP 120/53; PULSE 83; RESP 18; TEMP 98
--- NOTE | 2023-04-18 10:48 | XR ---
EXAMINATION TYPE: XR ankle complete LT DATE OF EXAM: 04/18/2023 10:38 AM CLINICAL INDICATION:Female, 88 years old with history of Pain; [facility] COMPARISON: None TECHNIQUE: XR ankle complete LT; ankle is imaged in frontal, lateral and oblique projections. FINDINGS: There is no evidence of acute osseous pathology. The joint spaces are well-preserved without evidenc e of subluxation or dislocation. Kager's fat pad is intact. Mild soft tissue swelling around the ankl e. No radiopaque foreign bodies are identified. Atherosclerosis of the arterial vasculature. There is deformity to the fifth metatarsal near the head. Seen on one view. IMPRESSION: 1. Deformity to the metatarsal head/neck of the fifth digit correlate with point tenderness for acute fracture. No additional evidence of acute fracture. 2. Subcutaneous swelling around the ankle likely secondary to underlying soft tissue injury.
== END 2023-04-18 11:44 | disposition home or self-care (01) ==
LOC: EC 09:15
DX: S93.402A Sprain of unspecified ligament of left ankle, initial encounter (principal); E11.9 Type 2 diabetes mellitus without complications; I10 Essential (primary) hypertension; E07.9 Disorder of thyroid, unspecified; E78.5 Hyperlipidemia, unspecified; Z79.84 Long term (current) use of oral hypoglycemic drugs; Z79.890 Hormone replacement therapy; Z79.01 Long term (current) use of anticoagulants; Z79.899 Other long term (current) drug therapy; Z86.73 Personal history of transient ischemic attack (TIA), and cerebral infarction without residual deficits; W01.0XXA Fall on same level from slipping, tripping and stumbling without subsequent striking against object, initial encounter
CPT/HCPCS: 73610; 99284; L4350

== ENCOUNTER 2024-08-08 17:49 | Emergency (ER) | payer MEDICARE, BC ==
[2024-08-08 18:05] VITALS: RESP 16
[2024-08-08] MEDS: SODIUM CHLORIDE 0.9% 1,000 ML IV ONE ×2 (19:16→20:48)
[2024-08-08] MEDS: ONDANSETRON 4 MG/2 ML VIAL IVP STA (19:16)
--- NOTE | 2024-08-08 19:32 | XR ---
EXAMINATION TYPE: XR chest 2V DATE OF EXAM: 08/08/2024 CLINICAL INDICATION: Female, 89 years old with history of abdominal pain, TECHNIQUE: Frontal and lateral views of the chest are obtained. COMPARISON: Chest CT September 30, 2023 FINDINGS: There is no focal air space opacity, pleural effusion, or pneumothorax seen. The cardiac silhouette size is stable and mildly enlarged with atherosclerotic and ectatic thoracic aorta. The ad jacent moderate to large size hiatal hernia is redemonstrated The osseous structures are intact. IMPRESSION: Chronic changes and mild cardiomegaly without acute pulmonary process. [facility], , 08/08/2024 7:30 PM
[2024-08-08 19:42] LABS: ALT 318 U/L (4-34); AST 576 U/L (14-36); African American GFR (CKD) 71 (>60 ml/min/1.73 sqM); Albumin 3.9 g/dL (3.5-5.0); Alkaline Phosphatase 242 U/L (38-126); Anion Gap 10 mmol/L; Basophils # (A) 0.1 k/uL (0-0.2); Basophils % (A) 1 %; Blood Urea Nitrogen 20 mg/dL (7-17); Calcium 9.5 mg/dL (8.4-10.2); Carbon Dioxide 25 mmol/L (22-30); Chloride 100 mmol/L (98-107); Eosinophils # (A) 0.1 k/uL (0-0.7); Eosinophils % (A) 1 %; Glucose 225 mg/dL (74-99); HGB 14.8 gm/dL (11.4-16.0); Lymphocytes # (A) 0.1 k/uL (1.0-4.8); Lymphocytes % (A) 1 %; MCHC 33.6 g/dL (31.0-37.0); MCV 92.4 fL (80.0-100.0); Mean Platelet Volume 8.2; Monocytes # (A) 0.2 k/uL (0-1.0); Monocytes % (A) 2 %; Neutrophils # (A) 10.6 k/uL (1.3-7.7); Neutrophils % (A) 96 %; Non-African American GFR(CKD) 62 (>60 ml/min/1.73 sqM); Platelet Count 188 k/uL (150-450); Potassium 3.9 mmol/L (3.5-5.1); RBC 4.76 m/uL (3.80-5.40); RDW 12.8 % (11.5-15.5); Sodium 135 mmol/L (137-145); Total Bilirubin 4.3 mg/dL (0.2-1.3); Total Protein 7.2 g/dL (6.3-8.2); WBC 11.1 k/uL (3.8-10.6)
[2024-08-08 20:07] LABS: Influenza A Not Detected (Not Detectd); Influenza B Not Detected (Not Detectd); RSV Not Detected (Not Detectd)
[2024-08-08 20:19] LABS: Amylase 767 U/L (30-110); Lipase 9797 U/L (23-300)
--- NOTE | 2024-08-08 21:23 | CT ---
EXAMINATION TYPE: CT abdomen pelvis w con DATE OF EXAM: 08/08/2024 COMPARISON: CT September 30, 2023 CLINICAL INDICATION: Female, 89 years old with history of abd pain. pancreatitis/cholecystitis, Chill s, weakness, abdominal pain after lunch, also complaining of bilateral lower rib pain., TECHNIQUE: CT scan of the abdomen and pelvis is performed with IV Contrast, patient injected with 100ml mL of Is ovue 300., (none if empty) Oral contrast used: without Oral Contrast (none if empty) CT DLP: 583.4 mGycm, Automated exposure control for dose reduction was used. FINDINGS: LUNG BASES: Bilateral gynecomastia is redemonstrated. LIVER/GB: Internal gallstone in gallbladder. New severe edematous wall thickening. New moderate perip ortal edema. No new biliary dilatation. PANCREAS: No significant abnormality is seen. SPLEEN: No significant abnormality is seen. ADRENALS: No significant abnormality is seen. KIDNEYS: A few small simple appearing thin-walled cysts scattered throughout the left kidney are rede monstrated. Stable 2 to 3 mm nonobstructing calculus lower pole right kidney coronal image 53 BOWEL: Large size hiatal hernia again seen. Large 4.1 cm duodenal diverticulum along the distal duode num coronal image 40 is redemonstrated. No abnormal small or large bowel dilatation. Persistent colon ic diverticulosis. No CT evidence for acute diverticulitis. UTERUS/ADNEXA: No gross abnormality seen. LYMPH NODES: No greater than 1cm abdominal or pelvic lymph nodes are appreciated. OSSEOUS STRUCTURES: Persistent dextroconvex scoliosis centered in the upper lumbar spine. Moderate to severe disc space narrowing left L2-L3 level is redemonstrated. OTHER: Prominent vessels seen anteriorly in the pelvis are noted. Moderate peripheral plaque of the a bdominal aorta extending to iliac branch vessels is again seen. IMPRESSION: CT findings consistent with new severe but uncomplicated acute cholecystitis are felt pre sent. Advise surgical evaluation. [facility], , 08/08/2024 9:21 PM
--- NOTE | 2024-08-08 22:11 | ED ---
General Adult HPI - General Chief complaint: Abdominal Pain Stated complaint: vomiting Time Seen by Provider: 08/08/24 18:56 Source: patient, RN notes reviewed, old records reviewed Mode of arrival: ambulatory Limitations: no limitations - History of Present Illness Initial comments: Patient is an 89-year-old female who presents emergency department complaining of abdominal pain, nausea, vomiting. States that started with lunch. States she was having bilateral lower rib pain in her abdomen. It is since improved and she does feel improved overall. Denies any pain. Has been feeling weak throughout the day today. States she stands up and does not feel like she can walk due to the general body weakness. Denies any chest pain or shortness of breath. Currently denies any weakness. Presents with her over concern for further evaluation. He is legally blind. History of diabetes, hypertension, hyperlipidemia as well as prior strokes. Patient is on Eliquis. Denies any falls or injuries to her head. She states she did fall earlier but it was more lowering herself to the ground onto her knees. Did not injure herself or hit her head or lose consciousness. Presents for further evaluation at this time. - Related Data Home Medications Medication Instructions Recorded Confirmed Glimepiride [Amaryl] 2 mg PO PC-BRKFST 12/25/17 12/08/22 Levothyroxine Sodium [Synthroid] 75 mcg PO DAILY 12/25/17 12/08/22 Potassium Chloride ER [K-Dur 20] 20 meq PO BID 12/25/17 12/08/22 metFORMIN HCL [Glucophage] 500 mg PO PC-SUPPER 12/25/17 12/08/22 Atenolol/Chlorthalidone 1 tab PO PC-LUNCH 12/08/22 12/08/22 [Atenolol/Chlorthalidone 50-25] Atorvastatin [Lipitor] 40 mg PO HS 12/08/22 12/08/22 Cefuroxime [Ceftin] 250 mg PO BID 12/08/22 12/08/22 lisinopriL [Zestril] 2.5 mg PO PC-LUNCH 12/08/22 12/08/22 Previous Rx's Medication Instructions Recorded Aspirin 325 mg PO DAILY tab 12/26/17 Allergies Allergy/AdvReac Type Severity Reaction Status Date / Time No Known Allergies Allergy Verified 08/08/24 18:04 Review of Systems ROS Statement: Those systems with pertinent positive or pertinent negative responses have been documented in the HPI. Review of Systems: CONST: Denies fever EYES: Denies blurry vision ENT: Denies nasal congestion C/V: Denies Chest pain RESP: Denies shortness of breath GI: Endorses abdominal pain that is since resolved : Denies dysuria SKIN: Denies rash. MSK: Denies joint pain. NEURO: Denies headache ROS Other: All systems not noted in ROS Statement are negative. Past Medical History Past Medical History: CVA/TIA, Diabetes Mellitus, Hyperlipidemia, Hypertension, Thyroid Disorder History of Any Multi-Drug Resistant Organisms: None Reported Past Surgical History: No Surgical Hx Reported Past Anesthesia/Blood Transfusion Reactions: No Reported Reaction Past Psychological History: No Psychological Hx Reported Smoking Status: Never smoker Past Alcohol Use History: None Reported Past Drug Use History: None Reported - Past Family History Mother Family Medical History: Congestive Heart Failure (CHF), CVA/TIA Additional Family Medical History / Comment(s): Mother had history of hypertension, diabetes, TIAs. No cancer history. Father Family Medical History: Myocardial Infarction (HI) Additional Family Medical History / Comment(s): Mother from a myocardial infarction. Brother(s) Additional Family Medical History / Comment(s): Patient had 3 brothers. One from a myocardial infraction with history of obstructive sleep apnea. One from some type of aneurysm and one from alcohol abuse. Sister(s) Additional Family Medical History / Comment(s): She has 2 sisters and one has coronary artery disease status post CABG. Son(s) Additional Family Medical History / Comment(s): Patient has one son with diabet es mellitus type 2. Patient has one daughter with no major medical problems. General Exam - General Exam Comments Initial Comments: General: Appears in no acute distress. HEAD: Normal with no signs of head trauma. EYES: Conjunctiva normal. ENT: Hearing grossly intact, normal oropharynx. RESPIRATORY: Clear breath sounds bilaterally. No wheezes, rales, or rhonchi. C/V: Regular rate and rhythm. S1 and S2 auscultated, no edema, peripheral pulses 2+ and intact throughout ABD: Abdomen soft, nondistended. No significant tenderness to palpation at this time. No guarding or rebound tenderness. No peritoneal signs. EXT: Normal range of motion, no obvious deformity SKIN: No rashes or lesions observed on exposed skin. NEURO: Alert and oriented x 4. Limitations: no limitations Course Vital Signs 08/08/24 08/08/24 08/08/24 18:01 22:31 23:53 Temperature 100.0 F H 98.8 F 98.7 F Pulse Rate 50 L 84 80 Respiratory 16 16 16 Rate Blood Pressure 105/54 114/62 121/61 O2 Sat by Pulse 95 95 96 Oximetry Medical Decision Making - Medical Decision Making Was pt. sent in by a medical professional or institution (, PA, HIGH SCHOOL FRENCH TEACHER, urgent care, hospital, or [facility]...) When possible be specific @ -No Did you speak to anyone other than the patient for history (EMS, parent, family, police, friend...)? What history was obtained from this source @ -No Did you review nursing and triage notes (agree or disagree)? Why? @ -I reviewed and agree with nursing and triage notes Were old charts reviewed (outside hosp., previous admission, EMS record, old EKG , old radiological studies, urgent care reports/EKG's, [facility] records)? Report findings @ -Old charts reviewed including medications which includes Eliquis per patient. Differential Diagnosis (chest pain, altered mental status, abdominal pain women, abdominal pain men, vaginal bleeding, weakness, fever, dyspnea, syncope, headache, dizziness, GI bleed, back pain, seizure, CVA, palpatations, mental health, musculoskeletal)? @ -Differential Abdominal Pain Women: Appendicitis, Cholecystitis, diverticulosis, ischemic bowel, pancreatitis, hepatitis, UTI, gastroenteritis, AAA, incarcerated hernia, bowel obstruction, constipation, inflammatory bowel, hepatitis, peptic ulcer disease, splenic infarction, perforated viscus, vulvitis, ovarian torsion, PID, kidney stone, placenta abruption, this is not meant to be an all-inclusive list EKG interpreted by me (3pts min.). @ -As above X-rays interpreted by me (1pt min.). @ -None done CT interpreted by me (1pt min.). @ -CT abdomen pelvis reveals acute cholecystitis with no evidence of CT evidence of pancreatitis. Radiology does not see any biliary dilation on CT. U/S interpreted by me (1pt. min.). @ -None done What testing was considered but not performed or refused? (CT, X-rays, U/S, labs)? Why? @ -None What meds were considered but not given or refused? Why? @ -None Did you discuss the management of the patient with other professionals (professionals i.e. , PA, HIGH SCHOOL FRENCH TEACHER, lab, RT, psych nurse, social worker aide, process checker, teacher, submarine advisory team watch officer, case checker)? Give summary @ -Discussed with our on-call surgeon, Dr. Echevarria. She feels that with the elevation in the patient's amylase and lipase concerning for pancreatitis as well as elevation in the boat bilirubin, alk phos, cannot definitively rule out some form of choledocholithiasis and gallstone pancreatitis despite not seeing it on CT. She recommends transfer. [place] accepting provider is Dr. Jalloh. Patient accepted for transfer. Was smoking cessation discussed for >3mins.? @ -No Was critical care preformed (if so, how long)? @ -Yes, 41 minutes. Were there social determinants of health that impacted care today? How? (Homelessness, low income, unemployed, alcoholism, drug addiction, transportation, low edu. Level, literacy, decrease access to med. care, halfway, rehab)? @ -No Was there de-escalation of care discussed even if they declined (Discuss DNR or withdrawal of care, Hospice)? DNR status @ -No What co-morbidities impacted this encounter? (DM, HTN, Smoking, COPD, CAD, Cancer, CVA, ARF, Chemo, Hep., AIDS, mental health diagnosis, sleep apnea, morbid obesity)? @ -None Was patient admitted / discharged? Hospital course, mention meds given and route, prescriptions, significant lab abnormalities, going to OR and other pertinent info. @ -Patient presents with sudden onset abdominal pain that is now improved. Vitals remarkable for low-grade fever of 100. She currently has no significant plaints at this time. Patient will be administered IV fluids, as well as IV Zofran. Will obtain abdominal laboratory studies as well as screening EKG. She was in agreement this plan. EKG shows no signs of acute ischemia. Laboratory studies remarkable for mild leukocytosis of 11.1. Lactic acid is elevated at 2.8. Patient has elevated bilirubin of 4.3, AST and ALT elevation of 576 and 318. Alk phos is elevated 242. Amylase and lipase are also elevated at 767 as well as 9797 respectively. Viral swabs are negative. On reevaluation, I discussed results with the patient. Recommended that we obtain CT imaging. Patient states she is still asymptomatic. CT abdomen pelvis revealed acute cholecystitis with no evidence of rupture or ab scess of the gallbladder. This CT finding coupled with the laboratory studies that are concerning for choledocholithiasis and possible gallbladder pancreatitis, patient does require surgical and gastroenterology evaluation likely. Patient will be started on IV Zosyn, IV fluids additionally given. Blood culture also be obtained. I spoke with our surgeon on-call, Dr. Echevarria who recommended transfer as we do not have gastroenterology available and she believes that they need to evaluate the patient for possible ERCP over the concern for possible choledocholithiasis/gallstone pancreatitis. I spoke with the patient and she does have follow-up with [facility] having previously gone there for prior surgeries. I did contact them at their facility and they are close to outside facility transfers. I spoke with family and they would like to attempt to transfer to [facility]. This will be the next attempt for transfer. [place] accepting provider is Dr. Jalloh. Patient accepted for transfer. Undiagnosed new problem with uncertain prognosis? @ -No Drug Therapy requiring intensive monitoring for toxicity (Heparin, Nitro, Insulin, Cardizem)? @ -No Were any procedures done? @ -No Diagnosis/symptom? @ -Cholecystitis, gallstone pancreatitis, choledocholithiasis Acute, or Chronic, or Acute on Chronic? @ -Acute Uncomplicated (without systemic symptoms) or Complicated (systemic symptoms)? @ -Complicated Side effects of treatment? @ -No Exacerbation, Progression, or Severe Exacerbation? @ -No Poses a threat to life or bodily function? How? (Chest pain, [place], HI, pneumonia, PE, COPD, DKA, ARF, appy, cholecystitis, CVA, Diverticulitis, Homicidal, Suicidal, threat to staff... and all critical care pts) @ -Yes - Lab Data Result diagrams: 08/08/24 19:16 08/08/24 19:16 Lab Results 08/08/24 08/08/24 08/08/24 Range/Units 19:16 19:16 19:16 WBC 11.1 H (3.8-10.6) k/uL RBC 4.76 (3.80-5.40) m/uL Hgb 14.8 (11.4-16.0) gm/dL Hct 44.0 (34.0-46.0) % MCV 92.4 (80.0-100.0) fL MCH 31.0 (25.0-35.0) pg MCHC 33.6 (31.0-37.0) g/dL RDW 12.8 (11.5-15.5) % Plt Count 188 (150-450) k/uL MPV 8.2 Neutrophils % 96 % Lymphocytes % 1 % Monocytes % 2 % Eosinophils % 1 % Basophils % 1 % Neutrophils # 10.6 H (1.3-7.7) k/uL Lymphocytes # 0.1 L (1.0-4.8) k/uL Monocytes # 0.2 (0-1.0) k/uL Eosinophils # 0.1 (0-0.7) k/uL Basophils # 0.1 (0-0.2) k/uL Sodium 135 L (137-145) mmol/L Potassium 3.9 (3.5-5.1) mmol/L Chloride 100 (98-107) mmol/L Carbon Dioxide 25 (22-30) mmol/L Anion Gap 10 mmol/L BUN 20 H (7-17) mg/dL Creatinine 0.85 (0.52-1.04) mg/dL Est GFR (CKD-EPI)AfAm 71 (>60 ml/min/1.73 sqM) Est GFR (CKD-EPI)NonAf 62 (>60 ml/min/1.73 sqM) Glucose 225 H (74-99) mg/dL Lactic Ac Sepsis Rflx Plasma Lactic Acid Roderick 2.8 H* (0.7-2.0) mmol/L Calcium 9.5 (8.4-10.2) mg/dL Total Bilirubin 4.3 H (0.2-1.3) mg/dL AST 576 H (14-36) U/L ALT 318 H (4-34) U/L Alkaline Phosphatase 242 H (38-126) U/L Troponin I (0.000-0.034) ng/mL Total Protein 7.2 (6.3-8.2) g/dL Albumin 3.9 (3.5-5.0) g/dL Amylase 767 H* (30-110) U/L Lipase 9797 H (23-300) U/L Influenza Type A (PCR) (Not Detectd) Influenza Type B (PCR) (Not Detectd) RSV (PCR) (Not Detectd) SARS-CoV-2 (PCR) (Not Detectd) 08/08/24 08/08/24 08/08/24 Range/Units 19:16 19:16 20:21 WBC (3.8-10.6) k/uL RBC (3.80-5.40) m/uL Hgb (11.4-16.0) gm/dL Hct (34.0-46.0) % MCV (80.0-100.0) fL MCH (25.0-35.0) pg MCHC (31.0-37.0) g/dL RDW (11.5-15.5) % Plt Count (150-450) k/uL MPV Neutrophils % % Lymphocytes % % Monocytes % % Eosinophils % % Basophils % % Neutrophils # (1.3-7.7) k/uL Lymphocytes # (1.0-4.8) k/uL Monocytes # (0-1.0) k/uL Eosinophils # (0-0.7) k/uL Basophils # (0-0.2) k/uL Sodium (137-145) mmol/L Potassium (3.5-5.1) mmol/L Chloride (98-107) mmol/L Carbon Dioxide (22-30) mmol/L Anion Gap mmol/L BUN (7-17) mg/dL Creatinine (0.52-1.04) mg/dL Est GFR (CKD-EPI)AfAm (>60 ml/min/1.73 sqM) Est GFR (CKD-EPI)NonAf (>60 ml/min/1.73 sqM) Glucose (74-99) mg/dL Lactic Ac Sepsis Rflx Y Plasma Lactic Acid Roderick (0.7-2.0) mmol/L Calcium (8.4-10.2) mg/dL Total Bilirubin (0.2-1.3) mg/dL AST (14-36) U/L ALT (4-34) U/L Alkaline Phosphatase (38-126) U/L Troponin I 0.012 (0.000-0.034) ng/mL Total Protein (6.3-8.2) g/dL Albumin (3.5-5.0) g/dL Amylase (30-110) U/L Lipase (23-300) U/L Influenza Type A (PCR) Not Detected (Not Detectd) Influenza Type B (PCR) Not Detected (Not Detectd) RSV (PCR) Not Detected (Not Detectd) SARS-CoV-2 (PCR) Not Detected (Not Detectd) - EKG Data -: EKG Interpreted by Me EKG Comments: 12-lead Electrocardiogram Interpretation Note EKG was reviewed and interpreted by myself. 12-lead ECG performed at 1810 is interpreted by me as revealing normal sinus rhythm at a rate of 89 beats per minute. [place] is normal. [place] interval is 194 ms, QRS duration is 89 ms, QTc is 336 ms.. There were no ST or T wave abnormalities to suggest myocardial ischemia or injury. R wave progression across the precordium was satisfactory. By my interpretation this EKG is non-diagnostic for acute ischemia. Critical Care Time Critical Care Time: Yes Total Critical Care Time: 41 Disposition Clinical Impression: Cholecystitis, Gallstone pancreatitis, Choledocholithiasis Disposition: OTHER INSTITUTION NOT DEFINED Condition: Serious Referrals: Yohana Wallace MD [Primary Care Provider] - 1-2 days Time of Disposition: 22:27 - Out of Hospital Transfer - Req. Specs Out of Hospital Transfer - Requested Specifics: Other Emergency Center (Transferred to [facility] for escalation of care in need of gastroenterology evaluation and patient request for [facility].)
[2024-08-08] MEDS: ACETAMINOPHEN TAB 500 MG TAB PO STA (22:26)
[2024-08-08] MEDS: PIPERACILLIN-TAZOBACTAM 3.375 GM in SODIUM CHLORIDE 0.9% 100 ML IVPB STA (22:26)
[2024-08-08] MEDS: LACTATED RINGERS 1,000 ML IV SCH (22:27)
[2024-08-08 23:54] VITALS: BP 121/61; PULSE 80; TEMP 98.7
[2024-08-09] MEDS ORDERED: PIPERACILLIN-TAZOBACTAM 3.375 GM in SODIUM CHLORIDE 0.9% 100 ML IVPB SCH (06:00)
== END 2024-08-08 23:54 | disposition other institution (70) ==
LOC: EC 17:49
DX: K80.40 Calculus of bile duct with cholecystitis, unspecified, without obstruction (principal); K85.10 Biliary acute pancreatitis without necrosis or infection
CPT/HCPCS: 93005; 80053; 82150; 83605; 83690; 84484; 85025; 87040; 87636; 71046; 74177; 99291; 96365; 96375; 96361 ×3; J2543; J2405; Q9967; 36415